=== PATIENT | male | born 1940 | race Caucasian/White ===

== ENCOUNTER 2019-11-03 09:08 | Outpatient (CLI) | payer MEDICARE, SELFPAY ==
[2019-11-03 09:10] VITALS: BP 132/78; PULSE 66; RESP 16; TEMP 36.4; O2SAT 96
[2019-11-03] MEDS: acetaminophen 325 mg Tablet 975 MG PO (10:45)
[2019-11-03] MEDS: diphenhydrAMINE 50 mg/mL SDV 1mL 25 MG IVP (10:45)
== END 2019-11-03 09:09 | disposition home or self-care (01) ==
LOC: RHEOACUTE 09:12
PROVIDERS: Family Provider Nurse Practitioner Family; PCP Nurse Practitioner Family; Visit Provider Internal Medicine Rheumatology
DX: M31.30 Wegener's granulomatosis without renal involvement (principal); Z79.899 Other long term (current) drug therapy; M81.0 Age-related osteoporosis without current pathological fracture; Z11.59 Encounter for screening for other viral diseases; Z11.1 Encounter for screening for respiratory tuberculosis; Z72.89 Other problems related to lifestyle
CPT/HCPCS: 36415; 80076; 82565; 85025; 86480; 86704; 86803; 87340; 96365; 96366; 96374; 96375; J1200; J2930; J7050; J9312

== ENCOUNTER → 2019-11-03 10:09 | Outpatient (BNVA) | payer MEDICARE, SELFPAY | PROVIDERS: Family Provider Nurse Practitioner Family; PCP Nurse Practitioner Family; Visit Provider Internal Medicine Rheumatology | DX: M31.30 Wegener's granulomatosis without renal involvement (principal); Z79.899 Other long term (current) drug therapy | CPT/HCPCS: 85025 ==

== ENCOUNTER → 2019-12-29 10:10 | Outpatient (BNVA) | payer MEDICARE, SELFPAY | PROVIDERS: Family Provider Nurse Practitioner Family; PCP Nurse Practitioner Family; Visit Provider Internal Medicine Rheumatology | DX: Z79.899 Other long term (current) drug therapy (principal); Z51.81 Encounter for therapeutic drug level monitoring; M31.30 Wegener's granulomatosis without renal involvement; I77.6 Arteritis, unspecified | CPT/HCPCS: 36415; 80076; 82565; 85025; 85651; 86140 ==

== ENCOUNTER → 2020-01-19 16:05 | Outpatient (BNVA) | payer MEDICARE, SELFPAY | PROVIDERS: Family Provider Nurse Practitioner Family; PCP Nurse Practitioner Family; Visit Provider Internal Medicine Rheumatology | DX: M31.30 Wegener's granulomatosis without renal involvement (principal); I77.6 Arteritis, unspecified; J44.9 Chronic obstructive pulmonary disease, unspecified; M48.061 Spinal stenosis, lumbar region without neurogenic claudication; Z79.899 Other long term (current) drug therapy; M81.0 Age-related osteoporosis without current pathological fracture; I48.91 Unspecified atrial fibrillation; Z79.01 Long term (current) use of anticoagulants; Z79.52 Long term (current) use of systemic steroids; Z86.73 Personal history of transient ischemic attack (TIA), and cerebral infarction without residual deficits | CPT/HCPCS: 99215; G0463 ==

== ENCOUNTER 2020-04-23 07:48 | Outpatient (CLI) | payer MEDICARE, SELFPAY ==
--- NOTE | 2020-04-23 07:58 | CT_ITS ---
WS: [id number] CT CHEST TECHNIQUE: Noncontrast CT of the chest with coronal and sagittal reformatted images. CLINICAL INFORMATION: LUNG NODULE COMPARISON: CT chest 4 10,019 DLP: 553.[address] scans at [facility] use at least one of these dose optimization techniques: automat ed exposure control; mA and/or kV adjustment per patient size (includes targeted exams where dose is matched to clinical indication); or iterative reconstruction. FINDINGS: Moderate chronic emphysematous changes. No acute pulmonary infiltrates. No focal consolidation or ple ural fluid. Fibrosis right upper lobe medially. Aortic aortic calcification. Coronary calcification. No mediastinal or hilar lymphadenopathy. Calcified right hilar and subcarinal lymph nodes. Prior sple nectomy. Left renal cyst. Adrenal glands are normal. Fibrotic opacity right middle lobe is unchanged. Small nodule right upper lobe medially measuring 6 m m is unchanged. 2 tiny noncalcified nodules the left lower lobe laterally measuring up to 3 mm. Calci fied granuloma right lower lobe. Small right hepatic cyst unchanged. CT/CT chest wo con [id number] IMPRESSION: 1. Stable noncalcified pulmonary nodules described above. Recommend 12 month f ollow-up. 2. Moderate chronic emphysematous changes. No acute pulmonary infiltrates. 3. Prior splenectomy. 4. Vascular calcification including coronary.
== END 2020-04-23 07:49 | disposition home or self-care (01) ==
LOC: RADWPI 07:54
PROVIDERS: Family Provider Nurse Practitioner Family; PCP Nurse Practitioner Family
DX: R91.1 Solitary pulmonary nodule (principal); I25.10 Atherosclerotic heart disease of native coronary artery without angina pectoris
CPT/HCPCS: 71250

== ENCOUNTER 2020-05-16 09:25 | Outpatient (CLI) | payer MEDICARE, SELFPAY ==
[2020-05-16 09:15] VITALS: BMI 19.3
[2020-05-16 09:30] VITALS: BP 125/74; PULSE 55; RESP 16; TEMP 37.1; O2SAT 96
[2020-05-16] MEDS: acetaminophen 325 mg Tablet 975 MG PO (09:50)
[2020-05-16] MEDS: diphenhydrAMINE 50 mg/mL SDV 1mL 25 MG IVP (10:23)
--- NOTE | 2020-05-16 10:27 | PC.NURSE ---
Rituxan infusion started per orders. Will increase rate every 30min per orders.
--- NOTE | 2020-05-16 11:40 | PC.NURSE ---
0915 Discussed Rituxan and impact on immune system with pt and over phone prior to infusion and again today with pt prior to infusion. Discussed good handwashing, wearing mask, social distancing, avoiding crowds, avoiding others with known or possible illness. Verbalized understanding.
[2020-05-16 15:15] VITALS: BP 118/67; PULSE 62; RESP 16; O2SAT 92
--- NOTE | 2020-05-16 15:17 | PC.NURSE ---
Reviewed home medications with pt. Copy of home med list given to pt at DC. Assisted to vehicle at DC to meet .
== END 2020-05-16 09:26 | disposition home or self-care (01) ==
LOC: RHEOACUTE 09:26
PROVIDERS: Family Provider Nurse Practitioner Family; PCP Nurse Practitioner Family; Visit Provider Internal Medicine Rheumatology
DX: I77.6 Arteritis, unspecified (principal); M31.30 Wegener's granulomatosis without renal involvement
CPT/HCPCS: 80076; 82565; 85025; 85651; 86140; 96365; 96366; 96375; J1200; J2930; J7050; J9312

== ENCOUNTER 2020-05-29 14:28 | Outpatient (CLI) | payer MEDICARE, SELFPAY ==
--- NOTE | 2020-05-29 14:34 | XR_ITS ---
WS: [id number] LEFT HIP HISTORY: LEFT HIP PAIN COMPARISON: 06/11/2017 LEFT hip: No acute fracture or dislocation. Mild narrowing of the LEFT hip joint with minimal osteoph ytes. Mild osteopenia. Mild narrowing of the LEFT SI joint. Moderate calcification in the femoral artery. XR/XR hip LT 2-3V wo/w pel* [id number] IMPRESSION: 1. Mild LEFT hip joint arthritis. 2. Mild osteoarthritis LEFT SI joint.
== END 2020-05-29 14:29 | disposition home or self-care (01) ==
LOC: RADWPI 14:33
PROVIDERS: Family Provider Nurse Practitioner Family; PCP Nurse Practitioner Family
DX: M16.12 Unilateral primary osteoarthritis, left hip (principal)
CPT/HCPCS: 73502

== ENCOUNTER → 2020-07-04 08:59 | Outpatient (BNVA) | payer MEDICARE, SELFPAY | PROVIDERS: Family Provider Nurse Practitioner Family; PCP Nurse Practitioner Family; Visit Provider Internal Medicine Rheumatology | DX: M31.30 Wegener's granulomatosis without renal involvement (principal); M47.816 Spondylosis without myelopathy or radiculopathy, lumbar region; I77.6 Arteritis, unspecified; M81.0 Age-related osteoporosis without current pathological fracture; M41.9 Scoliosis, unspecified; Z79.899 Other long term (current) drug therapy; Z79.52 Long term (current) use of systemic steroids | CPT/HCPCS: 99214 ==

== ENCOUNTER 2020-09-26 14:08 | Outpatient (CLI) | payer MEDICARE, SELFPAY ==
--- NOTE | 2020-09-26 14:12 | CT_ITS ---
WS: [id number] LDCT LUNG CANCER SCREENING HISTORY: NICOTINE Dependence, cigarettes TECHNIQUE: Axial imaging performed from the apices to 1 cm below the costophrenic angles. Coronal and sagittal reformats are submitted with axial MIP series. All CT scans at [facility] use at least one of these dose optimization techniques: automated exposure control; mA and/or kV adjustment per patient size (includes targeted exams where dose is matched to clinical indication); or iterativ e reconstruction. DLP: 54.98 mGy.cm DIvol: 1.58 mGy COMPARISON: 04/23/2020 Diagnostic quality: Satisfactory Lung Nodules: Spiculated 6 mm nodule in the RIGHT upper lobe, image 80 of series 3. 3 mm spiculation in the RIGHT middle lobe, image 114 of series 3. There are also a few granulomata. No endobronchial l esions. Lungs: Area of scarring and fibrosis in the medial RIGHT upper lobe. Mild peripheral interstitial thi ckening related to emphysema. Heart: Heart is slightly enlarged. Coronary artery stents are evident. Other findings: Incompletely visualized low-attenuation mass in the LEFT kidney measures 2.1 cm. Sple marleen arterial calcifications. CT/CT lung screening [id number] IMPRESSION: LUNG-RADS: 2-Benign Appearance or Behavior FOLLOW UP: 12 Month: Continue annual screening with LDCT OTHER FINDINGS (S MODIFIER): None. 6 mm nodule in the RIGHT upper lobe has been stable since 2014.
--- NOTE | 2020-09-26 14:58 | XR_ITS ---
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 FINDINGS: The L1-L4 bone mineral density measures 1.265 g/cm2. This corresponds to a T score score of 0.4 and Z score of 1.8. Left femoral neck bone mineral density measures 0.759. This corresponds to a T score -2.4 and Z score of -0.8. XR/XR DEXA axial skeleton* 13491 IMPRESSION: Osteopenia in the left femoral neck at the upper end of the range. Lumbar spine bone mineral density spuriously elevated due to endplate sclerosis. Patient's FRAX calculated 10 year probability for major osteoporotic fracture is 14.7 % and osteoporotic hip fracture is 9.6%.
== END 2020-09-26 14:09 | disposition home or self-care (01) ==
LOC: RAD 14:09
PROVIDERS: Family Provider Nurse Practitioner Family; PCP Nurse Practitioner Family; Visit Provider Family Medicine
DX: Z79.52 Long term (current) use of systemic steroids (principal); M31.30 Wegener's granulomatosis without renal involvement; Z72.0 Tobacco use; M85.88 Other specified disorders of bone density and structure, other site
CPT/HCPCS: 71271; 77080

== ENCOUNTER 2021-01-03 10:04 | Outpatient (CLI) | payer MEDICARE, SELFPAY ==
[2021-01-03 11:33] LABS: Basophils # 0.1 10^3/uL (0.0-0.1); Basophils % 1.4 %; Eosinophils # 0.5 10^3/uL (0.0-0.8); Eosinophils % 6.8 %; Hematocrit 41.4 % (42.0-52.0); Hemoglobin 13.5 g/dL (11.7-16.6); Lymphocytes # 1.7 10^3/uL (0.8-4.8); Lymphocytes % 21.6 %; Mean Corpuscular HGB Conc 32.6 g/dL (30.0-36.0); Mean Corpuscular Hemoglobin 32.3 pg (28.0-34.0); Mean Platelet Volume 11.3 fL (7.4-10.4); Monocytes # 1.3 10^3/uL (0.2-0.9); Monocytes % 16.5 %; Neutrophils # 4.09 10^3/uL (1.8-7.7); Neutrophils % 52.5 %; Nucleated Red Blood Cells % 0 %; Platelet Count 264 10^3/cmm (130-400); Red Blood Count 4.18 10^6/uL (4.1-5.3); Red Cell Distribution Width 14.6 % (12.1-15.1); White Blood Count 7.8 10^3/uL (4.0-10.0)
[2021-01-03 11:59] LABS: Alanine Aminotransferase 8 U/L (0-41); Albumin Level 3.9 g/dL (3.5-5.2); Alkaline Phosphatase 64 IU/L (40-130); Anion Gap 11.7 (5-19); Aspartate Amino Transferase 14 U/L (0-40); Blood Urea Nitrogen 16 mg/dL (8-23); C Reactive Protein 2.8 mg/L (0.0-4.9); Calcium 8.2 mg/dL (8.5-10.5); Carbon Dioxide 26 mmol/L (22-29); Chloride 104 mmol/L (98-107); Globulin 1.8 g/dL (1.3-4.6); Glucose 94 mg/dL (65-115); Osmolality Calculated 285 mOsm/kg (285-295); Potassium 4.7 mmol/L (3.5-5.1); Sodium 137 mmol/L (136-145); Total Bilirubin 0.2 mg/dL (0.15-1.2); Total Protein 5.7 g/dL (6.6-8.7)
[2021-01-03 12:04] LABS: Bilirubin Urine Neg (Negative); Blood Urine Neg (Negative); Glucose Urine UA Norm (Normal); Ketones Urine Negative (Negative); Leukocyte Esterase Urine Negative (Negative); Nitrate Urine Negative (Negative); Protein Urine Neg (Negative); Specific Gravity, Urine 1.015 (1.005-1.030); Urine Appearance Clear (CLEAR); Urine Color Yellow (Yellow); Urobilinogen Urine Norm (Negative); pH Urine 5 (5-7)
[2021-01-03 12:06] LABS: Urine Protein Random 8 mg/dL
[2021-01-03 12:52] LABS: Add Urine Culture? No; Bacteria Urine TRACE /hpf; Mucus Urine 2+ /hpf; Squamous Epithelial Cell Urine 0-4 /hpf (0-5)
== END 2021-01-03 10:05 | disposition home or self-care (01) ==
LOC: ONCMED 10:06
PROVIDERS: Family Provider Nurse Practitioner Family; PCP Family Medicine; Visit Provider Internal Medicine Rheumatology
DX: I77.6 Arteritis, unspecified (principal); M31.30 Wegener's granulomatosis without renal involvement; Z79.899 Other long term (current) drug therapy
CPT/HCPCS: 36415; 80053; 81001; 82248; 84156; 85025; 86140; 87086

== ENCOUNTER 2021-01-07 06:47 | Outpatient (CLI) | payer MEDICARE, SELFPAY ==
[2021-01-07] VITALS (8 sets, daily range): BP systolic 91–127; BP diastolic 53–75; PULSE 52–58; RESP 18–20; TEMP 36.1–36.6; O2SAT 95–98
[2021-01-07] MEDS: acetaminophen 325 mg Tablet 650 MG PO (10:29)
[2021-01-07] MEDS: sodium chloride 0.9% 500 ML 125 ML IV (10:30)
[2021-01-07] MEDS: diphenhydrAMINE 50 mg/mL SDV 1mL 25 MG IVP (10:32)
== END 2021-01-07 06:48 | disposition home or self-care (01) ==
LOC: ONCMED 06:50
PROVIDERS: Family Provider Nurse Practitioner Family; PCP Family Medicine; Visit Provider Internal Medicine Rheumatology
DX: M31.30 Wegener's granulomatosis without renal involvement (principal); I77.6 Arteritis, unspecified
CPT/HCPCS: 96365; 96366; 96375; J1200; J2930; J7040; J7050; J9312

== ENCOUNTER → 2021-02-28 14:16 | Outpatient (BNVA) | payer MEDICARE, SELFPAY | PROVIDERS: Family Provider Nurse Practitioner Family; PCP Family Medicine; Visit Provider Internal Medicine Rheumatology | DX: M31.30 Wegener's granulomatosis without renal involvement (principal); I77.6 Arteritis, unspecified; D89.9 Disorder involving the immune mechanism, unspecified; M41.9 Scoliosis, unspecified; M47.816 Spondylosis without myelopathy or radiculopathy, lumbar region | CPT/HCPCS: 99214 ==

== ENCOUNTER → 2021-03-28 08:18 | Outpatient (BNVA) | payer MEDICARE, SELFPAY | PROVIDERS: Family Provider Internal Medicine Rheumatology; PCP Family Medicine; Referring Provider Internal Medicine Rheumatology; Visit Provider Orthopaedic Surgery | DX: M47.896 Other spondylosis, lumbar region (principal); I71.4 Abdominal aortic aneurysm, without rupture; M54.5 Low back pain | CPT/HCPCS: 72110 ==

== ENCOUNTER 2021-04-01 08:43 | Outpatient (CLI) | payer MEDICARE, SELFPAY ==
--- NOTE | 2021-04-01 08:48 | MR_ITS ---
WS: [id number] MRI LUMBAR SPINE NONCONTRAST TECHNIQUE: Sagittal T1, T2 and STIR imaging. Axial T1 and T2 imaging. CLINICAL INFORMATION: CHRONIC BACK PAIN FINDINGS: Lumbar scoliosis convex left. Grade 1 anterolisthesis L5 on S1 measuring 5 mm. Disc space narrowing w orse at L3-L5. Foraminal narrowing in the lower thoracic spine left T10-11. L1-L2: Mild annular bulging with slight effacement of ventral thecal sac. Mild right and no significa nt left foraminal narrowing. Narrowing of the right subarticular recess. Mild facet arthropathy. L2-L3: Mild disc bulging and osteophytic ridging. Mild central canal stenosis. Impingement traversing L3 nerve roots bilaterally. Mild facet arthropathy. Mild to moderate right and mild left foraminal n arrowing. Moderate facet arthropathy. L3-L4: Mild disc bulging with a shallow central protrusion. Moderate facet arthropathy ligamentum fla vum hypertrophy. Severe central canal stenosis. Impingement traversing L4 nerve roots. Moderate to se reggie right foraminal narrowing. Mild left foraminal narrowing. L4-L5: Disc osteophyte complex with endplate ridging. Impingement traversing left L5 nerve root. Mode rate to advanced facet arthropathy worse in the left. Severe left foraminal narrowing. Right foramen is patent. L5-S1: Disc osteophyte complex eccentric to the left. Impingement traversing S1 nerve roots bilateral ly left greater than right. Severe left foraminal narrowing. Right foramen is patent. Left renal cyst measuring 3.2 x 2.9 CM. Mild central canal stenosis in the cervical spine at C3-C6 wi th moderate spondylitic changes. Visualized pelvic bony structures: Normal. Paravertebral soft tissues: Normal. MR/MR lumbar spine wo con* [id number] IMPRESSION: 1. Lumbar scoliosis convex left. No acute compression fractures. 2. Severe central canal stenosis L3-4 due to disc bulging with facet arthropat hy and ligamentum flavum flavum hypertrophy. 3. Moderate central canal stenosis L4-5 with impingement on the traversing lef t L5 nerve root. 4. Disc osteophyte complex L5-S1 impinges the traversing S1 nerve roots left g reater than right. 5. Mild central canal stenosis L2-3 impinges the traversing L3 nerve roots lamont aterally. 6. Moderate to severe right L3-4 and left L4-5 foraminal narrowing. Severe lef t L5-S1 foraminal narrowing. 7. Moderate facet arthropathy L3-4 and left L4-5
== END 2021-04-01 08:44 | disposition home or self-care (01) ==
LOC: RADSHAW 08:47
PROVIDERS: Family Provider Internal Medicine Rheumatology; PCP Family Medicine; Visit Provider Family Medicine
DX: M54.5 Low back pain (principal); G89.29 Other chronic pain; M41.86 Other forms of scoliosis, lumbar region; M47.816 Spondylosis without myelopathy or radiculopathy, lumbar region; M25.78 Osteophyte, vertebrae; M48.061 Spinal stenosis, lumbar region without neurogenic claudication
CPT/HCPCS: 72148

== ENCOUNTER → 2021-05-28 10:37 | Outpatient (BNVA) | payer MEDICARE, SELFPAY | PROVIDERS: Family Provider Internal Medicine Rheumatology; PCP Family Medicine; Visit Provider Orthopaedic Surgery | DX: Z01.812 Encounter for preprocedural laboratory examination (principal); Z20.822 Contact with and (suspected) exposure to COVID-19 | CPT/HCPCS: 87635 ==

== ENCOUNTER 2021-05-31 08:42 | Day surgery (SDC) | payer MEDICARE, SELFPAY ==
--- NOTE | 2021-05-29 11:16 | ECG_ITS ---
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 Measurements Intervals [place] Rate: 49 P: 77 DC: 170 QRS: 2 QRSD: 104 T: 64 QT: 450 QTc: 407 Interpretive Statements SINUS BRADYCARDIA Compared to ECG 02/18/2018 09:35:50 Atrial fibrillation no longer present Electronically Signed On 05-29-2021 23:50:05 CDT by Kana Holt M.D. [email or web address] medical centerAffinity Tourismbluffton hospitalRECUPYL/store/OM/[id number]
[2021-05-29 11:17] VITALS: BMI 19.3
[2021-05-29 14:52] LABS: Basophils # 0.1 10^3/uL (0.0-0.1); Eosinophils # 0.5 10^3/uL (0.0-0.8); Eosinophils % 3.9 %; Hematocrit 44.4 % (42.0-52.0); Hemoglobin 14.2 g/dL (11.7-16.6); Lymphocytes # 1.1 10^3/uL (0.8-4.8); Lymphocytes % 9.4 %; Mean Corpuscular Hemoglobin 31.5 pg (28.0-34.0); Mean Corpuscular Volume 98.4 fl (80-94); Mean Platelet Volume 12.3 fL (7.4-10.4); Monocytes # 1.4 10^3/uL (0.2-0.9); Monocytes % 11.7 %; Neutrophils % 71.5 %; Nucleated Red Blood Cells % 0 %; Platelet Count 255 10^3/cmm (130-400); Red Blood Count 4.51 10^6/uL (4.1-5.3); Red Cell Distribution Width 14.2 % (12.1-15.1); White Blood Count 11.8 10^3/uL (4.0-10.0)
--- NOTE | 2021-05-29 16:06 | P.ANESASSM_ITS ---
Pre-Anesthetic Assessment Pre-Anesthetic Assessment: Height/Weight: Height 1.7 m Weight 55.792 kg Proposed Procedure: Operation Date: 05/31/21 11:30 Proposed Procedures p Lumbar Spine Decompression L3/4 76300 M48.062(Not Applicable) - Abundio Jhaveri, DO Was Beta Harmony taken within 24 hours: Yes Was Clonidine taken within 24 hours: N/A Social: Social History: Tobacco and No alcohol Exam: Pre-Anes Outpt Exam: alert, oriented x 3 and regular rate & rhythm Airway: Submandibular: WNL Cervical ROM: WNL MP: 2 Pulmonary: Pulmonary: COPD Comments: Byron's CV/HEM: CV/HEM: CAD GI: GI: GERD Metabolic: Comments: Chronic steroids Musc/skel: Musc/skel: Lower Back Pain Anesthetic Plan: ASA status: 3 Anesthesia: General Risk of > 500 ml blood loss (7ml/kg in children): No PFSH Anesthesia PFSH: Medical History COPD (chronic obstructive pulmonary disease) 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 High risk medication use History of esophageal dilatation Immunization counseling Immunosuppression Osteoporosis Scoliosis Byron's granulomatosis with vasculitis Surgical History History of arthroscopy of right shoulder History of inguinal hernia repair, bilateral History of right hip replacement History of splenectomy Hx of heart artery stent 5 stents Family History Other CAD (coronary artery disease) Chronic kidney disease (CKD) Hypertension Denies family history of Rheumatoid arthritis Diabetes Systemic lupus erythematosus (SLE) in adult Stroke Social History Smoking and tobacco status: never smoked Alcohol intake: never History of recent travel: No Data Anesthesia CBC & Chem 7: 05/29/21 11:30 Other Labs: Laboratory Results - last 48 hr 05/29/21 11:30 WBC 11.8 H RBC 4.51 Hgb 14.2 Hct 44.4 MCV 98.4 H MCH 31.5 MCHC 32.0 RDW 14.2 Plt Count 255 MPV 12.3 H Neut % (Auto) 71.5 Lymph % (Auto) 9.4 [place] % (Auto) 11.7 Eos % (Auto) 3.9 Baso % (Auto) 1.0 Neut # (Auto) 8.40 H Lymph # (Auto) 1.1 [place] # (Auto) 1.4 H Eos # (Auto) 0.5 Baso # (Auto) 0.1 Nucleated RBC % (auto) 0 Nucleated RBCs # 0.0 Cardiac Studies: No Data to Display
[2021-05-31] VITALS (9 sets, daily range): BP systolic 84–156; BP diastolic 52–85; PULSE 61–87; RESP 18–20; TEMP 36.2–36.3; O2SAT 92–99
--- NOTE | 2021-05-31 | SCC_ITS ---
Procedure Done: Right L3/4 laminectomy with facetectomy 26.3 seconds of fluoroscopic guidance, for a cumulative dose of 6.36 mGy, was provided to Dr. Jhaveri by the radiology department. C-arm images of the lumbar spine were saved for the patient's permanent record. [facility] CENTERJackson
--- NOTE | 2021-05-31 | XR_ITS ---
WS: [id number] Lumbar spine, C-arm fluoroscopy, 05/31/2021 Clinical Data: Lumbar spine decompression Comparison: None. Findings: Dr. Jhaveri performed a lumbar decompression at L3-L4. XR/XR lumbar spine 1V [id number] Impression: L3-L4 decompression.
--- NOTE | 2021-05-31 09:04 | W.PM.OPSUD ---
Surgery/Procedure H&P Update DATE OF PROCEDURE: May 31, 2021 DATE H&P PERFORMED: 05/31/21 H&P UPDATE INFORMATION: I have reviewed H&P completed within last 30 days, I have examined patient prior to procedure and No changes to prior documentation PLANNED PROCEDURE: Operation Date: 05/31/21 11:25 Proposed Procedures p Lumbar Spine Decompression L3/4 29695 M48.062(Not Applicable) - Abundio Jhaveri DO
--- NOTE | 2021-05-31 09:14 | PM.HP ---
Providers/Chief Complaint Primary Care Provider: Gerardo Hutchison MD Chief Complaint: lumber spine decompression History of Present Illness Arnold Aragon is a 80 year old male back pain that radiates into his right hip and lower extremity with no known injury. He feels his leg pain is worse than the back pain. He complains of night time pain and stiffness in the morning that makes it difficult to move in the morning.He is using a cane at todays visit and leans forward when sitting and walking. Chief Complaint: back pain Onset: 4 years Duration: gradually worsening Characteristics: ache, just hurts Severity: 12/15 Location: low back Radiating symptoms: right hip, anterior and lateral thigh Aggravating factors: nighttime pain, stiffness in the morning Alleviating factors: Tramdol Neuro deficits: [] denies numbness, tingling, weakness, incontinence of bowel/bladder, saddle anesthesia. Prior tx: Injections Associated symptoms: Denies abdominal pain, chills, fever(s), nausea or vomiting Review of Systems Narrative: General ROS: negative for weight changes, fever ENT ROS: negative for nasal congestion, drainage or bleeding, sore throat, dysphagia or ear pain Eyes: PERRL Hematological and Lymphatic ROS: negative for swollen glands or abnormal bleeding Endocrine ROS: negative for polyuria/polydpsia or new changes in weight Respiratory ROS: negative for cough, shortness of breath, or wheezing Cardiovascular ROS: negative for chest pain or dyspnea on exertion Gastrointestinal ROS: negative for reflux, abdominal pain, change in bowel habits, or black or bloody stools Musculoskeletal ROS: negative for back pain, neck pain, or joint pain or swelling except for current problem Neurological ROS: negative for TIA or stoke symptoms Skin: no rashes Medications/Allergies Home Medications Medication Instructions Recorded Confirmed Last Taken Type albuterol sulfate 2.5 mg INHALATION QID 01/19/20 05/29/21 Unknown History aspirin 81 mg tablet,delayed 81 mg PO DAILY 01/19/20 05/29/21 Unknown History release metoprolol tartrate 25 mg tablet 25 mg PO BID 01/19/20 05/29/21 Unknown History mirtazapine 30 mg tablet 30 mg PO .HS tab 01/19/20 05/29/21 Unknown History nitroglycerin 0.4 mg sublingual 0.4 mg SUBLINGUAL Q5M PRN 01/19/20 05/29/21 Unknown History tablet rituximab 10 mg/mL 500 mg IVP .[id number] ml 01/19/20 05/29/21 Unknown History concentrate,intravenous tamsulosin 0.4 mg capsule 0.4 mg PO DAILY 01/19/20 05/29/21 Unknown History alendronate 70 mg tablet 70 mg PO .q7days #15 tab 02/28/21 05/29/21 Unknown Rx omeprazole 40 mg capsule,delayed 40 mg PO DAILY #90 cap 02/28/21 05/29/21 Unknown Rx release prednisone 5 mg tablet 5 mg PO DAILY #90 tab 02/28/21 05/29/21 Unknown Rx tramadol 50 mg tablet 50 mg PO BID PRN #60 tab 02/28/21 05/29/21 Unknown Rx Allergies Allergy/AdvReac Type Severity Reaction Status Date / Time Penicillins Allergy Unknown Verified 05/29/21 11:09 PFSH Acute PFSH: Medical History COPD (chronic obstructive pulmonary disease) 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 High risk medication use History of esophageal dilatation Immunization counseling Immunosuppression Osteoporosis Scoliosis Byron's granulomatosis with vasculitis Surgical History History of arthroscopy of right shoulder History of inguinal hernia repair, bilateral History of right hip replacement History of splenectomy Hx of heart artery stent 5 stents Family History Other CAD (coronary artery disease) Chronic kidney disease (CKD) Hypertension Denies family history of Rheumatoid arthritis Diabetes Systemic lupus erythematosus (SLE) in adult Stroke Social History Smoking and tobacco status: never smoked Alcohol intake: never History of recent travel: No Vitals/I&O/Wt Weight last 48 hrs Weight 123 lb Physical Exam Narrative: EXAM NARRATIVE: CONSTITUTIONAL: The patient is a normal appearing [] in no apparent distress. GENERAL: Patient in no acute distress. CARDIAC: Regular rate and rhythm. CHEST: Normal inspiratory effort, normal respiratory rate. ABDOMEN: Soft and nontender. SKIN: Clear, warm and intact. NEURO?PSYCH: The patient is alert and oriented to person, place and time. Sensorv /SILT Motor StrengthShoulder abduction C5 5/5Wrist extension C6 5/5Elbow extension C7 5/5Hand Sewer Pipe Layer Helper C8 5/5Finger abduction T15/5 Radial/ Ulnar/ Median n intact LowerSensory (SILT)Motor StrengthHin flexion L2/3Ant/inner thigh 5/5Hip adduction L2/3 5/5Knee extension L4 Lat thigh, 5/5Toe dorsiflexion L5 5/5Ankle dorsiflexion L5/ T24Cudlqsz flexion S1 5/5 DTRBleeps 2+Triceps 2+Brachioradialis 2+Patellar 2+Achilles 2+ MUSCULOSKELETAL: [] UPPEREXTREMITIES: The patient had full active ROM in fingers, wrist, elbow, and shoulder. The patient demonstrated ability to fully flex/extend/abduct/adduct fingers, make ok sign, cross 2nd/3rd digits, extend 1st digit fully.. Radial pulse 2+, CR<2 seconds. LOWER EXTREMITIES: Pt has full, active ROM of toes, ankle, knee, and hip. Dorsalis pedis/posterior tibialis pulses 2+, CR<2 seconds. SPINE: Skin warm, dry, intact. Data : 05/29/21 11:30 A&P Assessment and plan (1) Lumbar stenosis with neurogenic claudication: At this point plan is to do a right L3-4 MIS decompression. Plan will be to do this on June stimulator in order to allow for his to have her surgery which we done April 10. Risk meds are explained which include bleeding infection scar pain damage blood vessels nerves risk for the surgery and anesthesia risk. Status: Acute Attestations Medical Necessity Statement*: failed conservative tx Coding Level of Care Code Acute President And Cmo for g Fwd Diagnoses Lumbar stenosis with neurogenic claudication M48.062
[2021-05-31] MEDS: sodium chloride 0.9% 1,000 ML 30 ML IV (09:25)
--- NOTE | 2021-05-31 10:13 | P.ANESUD_ITS ---
Pre-Anesthetic Update Pre-Anesthetic Assessment: Date of Surgery/Procedure: 05/31/21 Preop Amanda gnosis: lumbar stenosis with neurogenic claudication Proposed Procedure: Operation Date: 05/31/21 11:25 Proposed Procedures p Lumbar Spine Decompression L3/4 58557 M48.062(Not Applicable) - Abundio Jhaveri, DO Any changes to Pre-Anesthetic Assessment?: No Last Intake: Intake Last Liquid Date 05/30/21 Last Liquid Time 22:30 Last Solid Date 05/30/21 Last Solid Time 17:00 Labs Last 48hrs: Laboratory Results - last 48 hr 05/29/21 11:30 WBC 11.8 H RBC 4.51 Hgb 14.2 Hct 44.4 MCV 98.4 H MCH 31.5 MCHC 32.0 RDW 14.2 Plt Count 255 MPV 12.3 H Neut % (Auto) 71.5 Lymph % (Auto) 9.4 [place] % (Auto) 11.7 Eos % (Auto) 3.9 Baso % (Auto) 1.0 Neut # (Auto) 8.40 H Lymph # (Auto) 1.1 [place] # (Auto) 1.4 H Eos # (Auto) 0.5 Baso # (Auto) 0.1 Nucleated RBC % (a uto) 0 Nucleated RBCs # 0.0 Vitals: Temperature 97.2 F L 05/31/21 09:15 Temperature Source Temporal Artery S can 05/31/21 09:15 Pulse Rate 61 05/31/21 09:15 Respiratory Rate 18 05/31/21 09:15 Blood Pressure 156/85 05/31/21 09:15 Blood Pressure Patricia n 108 05/31/21 09:15 Pulse Oximetry 96 05/31/21 09:15 Oxygen Delivery Me thod 05/31/21 09:15 Exam: Pre-Anes Outpt Exam: alert, oriented x 3, clear to auscultation bilaterally and regular rate & rhythm Cardiac Studies: No Data to Display
[2021-05-31] MEDS: clindamycin 900 MG/50 ML PREMIX 100 MG IV (10:43)
--- NOTE | 2021-05-31 11:53 | P.OP_ITS ---
Operative Report Date of procedure: May 31, 2021 Pre-op Diagnosis: lumbar stenosis with neurogenic claudication Post-op diagnosis: same Procedure Done: Right L3/4 laminectomy with facetectomy Surgeon: Abundio Jhaveri Commissioned Security Officer: Armando Langford Commissioned Security Officer: PAIGE Olivera assisted with positioning the patient and closure of the wound. He also assisted with suction and retraction under the microscope I need his expertise under the microscope in order to perform the surgery. Anesthesia: General Estimated blood loss (mL): 5 Condition: stable Disposition: PACU Procedure: Patient is brought to the operative suite. After undergoing anesthesia they are placed in the supine position. All areas of impingement are well padded. Patient is then prepped and draped in the normal sterile fashion. A skin incision is made over the L3/4 level. This is confirmed under c-arm guidance. A series of dilators are passed and the tubular retractor is docked on the L3 lamina. A bovie is used to clear the soft tissue off the lamina and the L 3/4 facet joint. A high speed mehreen is then used to perform the laminectomy and take down the medial aspect of the L 3/4 facet joint. A kerrison rongeure was then used to take down the remaining lamina and smooth the edge of the laminectomy up to the point where the ligamentum flavum attaches. Attention was then brought to the medial aspect of the facet joint. The remaining medial aspect of the superior and inferior aspect of the facet joint were taken down with the kerrison from the pedicle of L3 to L 4. The facet joint had significant hypertrophy. Attention was then brought to the Ligamentum Flavum. The ligament was taken down from the lamina of L3 to L4 and out medially to the remaining facet joint. The ligament was thick. The dura was then exposed. The dura was in good repair. The L3 nerve was then traced with a curette out the L3/4 foramen and found to be adequately decompressed. The L4 nerve was traced with a curette around the L4 pedicle. The lateral recess was opened with a kerrison helping to further decompress the L4 nerve. Wound is then irrigated copiously with saline and surgiflo is used to stop any bleeding. The tubular retractor is removed and the wound is closed with vicryl and monocryl suture. Glue is then used to protect the wound. A sterile dressing is then placed. Patient was then placed in the supine position and transferred to the PACU in stable condition.
[2021-05-31] MEDS: sodium chloride 0.9% 500 ML 999 ML IV (12:08)
== END 2021-05-31 13:15 | disposition home or self-care (01) ==
PROVIDERS: PCP Family Medicine; Visit Provider Orthopaedic Surgery
PROC: (CPT 63005; principal; 2021-05-31 11:25)
DX: M48.062 Spinal stenosis, lumbar region with neurogenic claudication (principal); J44.9 Chronic obstructive pulmonary disease, unspecified; I25.10 Atherosclerotic heart disease of native coronary artery without angina pectoris; K21.9 Gastro-esophageal reflux disease without esophagitis; Z79.52 Long term (current) use of systemic steroids; Z79.899 Other long term (current) drug therapy; M81.0 Age-related osteoporosis without current pathological fracture; Z82.49 Family history of ischemic heart disease and other diseases of the circulatory system; Z79.82 Long term (current) use of aspirin
CPT/HCPCS: 63047; 72020; 76000; 85025; 93005; J1100; J2405; J2704; J3010; J3490; J7030; J7040

== ENCOUNTER 2021-07-10 08:56 | Outpatient (CLI) | payer MEDICARE, SELFPAY ==
[2021-07-10 09:03] VITALS: BP 144/84; PULSE 66; RESP 20; TEMP 36.1; O2SAT 98
[2021-07-10 09:38] LABS: Basophils # 0.1 10^3/uL (0.0-0.1); Basophils % 0.8 %; Eosinophils # 0.5 10^3/uL (0.0-0.8); Eosinophils % 4.1 %; Hematocrit 43.2 % (42.0-52.0); Hemoglobin 14.1 g/dL (11.7-16.6); Lymphocytes # 1.8 10^3/uL (0.8-4.8); Lymphocytes % 14.7 %; Mean Corpuscular HGB Conc 32.6 g/dL (30.0-36.0); Mean Corpuscular Volume 98.2 fl (80-94); Mean Platelet Volume 11.3 fL (7.4-10.4); Monocytes # 1.6 10^3/uL (0.2-0.9); Monocytes % 13.7 %; Neutrophils # 7.76 10^3/uL (1.8-7.7); Neutrophils % 65.1 %; Nucleated Red Blood Cells % 0 %; Platelet Count 265 10^3/cmm (130-400); Red Cell Distribution Width 14.7 % (12.1-15.1); White Blood Count 11.9 10^3/uL (4.0-10.0)
[2021-07-10] MEDS: sodium chloride 0.9% 250 ML 50 ML IV (09:42)
[2021-07-10] MEDS: acetaminophen 325 mg Tablet 650 MG PO (09:42)
[2021-07-10] MEDS: diphenhydrAMINE 50 mg/mL SDV 1mL IV (09:43)
[2021-07-10 10:10] LABS: Alanine Aminotransferase 10 U/L (0-41); Alkaline Phosphatase 87 IU/L (40-130); Globulin 2.1 g/dL (1.3-4.6); Total Bilirubin 0.2 mg/dL (0.15-1.2); Total Protein 6.1 g/dL (6.6-8.7)
[2021-07-10 10:13] LABS: Aspartate Amino Transferase 19 U/L (0-40)
[2021-07-10 10:21] VITALS: BP 124/69; PULSE 73; RESP 18; TEMP 36.4; O2SAT 100
[2021-07-10 10:53] VITALS: BP 125/72; PULSE 58; RESP 18; TEMP 36.2; O2SAT 98
[2021-07-10 12:02] VITALS: BP 135/77; PULSE 61; RESP 18; TEMP 36.2; O2SAT 97
== END 2021-07-10 08:57 | disposition home or self-care (01) ==
PROVIDERS: PCP Family Medicine; Referring Provider Internal Medicine Rheumatology; Visit Provider Internal Medicine Medical Oncology
DX: M31.30 Wegener's granulomatosis without renal involvement (principal)
CPT/HCPCS: 80076; 82565; 85025; 85651; 96365; 96366; 96375; J1200; J2920; J7050; J9312

== ENCOUNTER 2021-10-02 11:35 | Outpatient (CLI) | payer MEDICARE, SELFPAY ==
--- NOTE | 2021-10-02 11:44 | CT_ITS ---
WS: [id number] LDCT LUNG CANCER SCREENING TECHNIQUE: Noncontrast CT of the chest with coronal and sagittal reformatted images. CLINICAL INFORMATION: HX OF TOBACCO USE COMPARISON: September 26, 2020 and April 23, 2020 DLP: 86.39 mGy.cm DIvol: 1.[address] scans at [facility] use at least one of these dose optimization techniques: automat ed exposure control; mA and/or kV adjustment per patient size (includes targeted exams where dose is matched to clinical indication); or iterative reconstruction. FINDINGS: Again seen is the spiculated 6 mm nodule right upper lobe. Additional smaller subpleural sp iculated nodule in the right middle lobe measuring 5.5 mm is unchanged. Small spiculated opacity in t he right upper lobe anteriorly is also unchanged measuring 5 mm. Subpleural nodule right upper lobe m easuring 7 mm posteriorly is stable. Mild chronic emphysematous changes. Fibrosis right upper lobe. Aortic calcification. Coronary calcifi cation. No mediastinal or hilar lymphadenopathy. No axillary lymphadenopathy. Adrenal glands are normal. Low-attenuation lesion left kidney partially visualized measuring 3.6 cm. Small right hepatic cyst. Disc space narrowing mid thoracic spine. CT/CT lung screening [id number] IMPRESSION: LUNG-RADS: 2-Benign Appearance or Behavior FOLLOW UP: 12 Month: Continue annual screening with LDCT
== END 2021-10-02 11:36 | disposition home or self-care (01) ==
LOC: RAD 11:41
PROVIDERS: PCP Family Medicine; Visit Provider Family Medicine
DX: Z12.2 Encounter for screening for malignant neoplasm of respiratory organs (principal); Z87.891 Personal history of nicotine dependence
CPT/HCPCS: 71271

== ENCOUNTER 2022-01-08 08:47 | Outpatient (CLI) | payer MEDICARE, SELFPAY ==
[2022-01-08 08:55] VITALS: BP 137/77; PULSE 55; RESP 18; TEMP 36.6; O2SAT 99
[2022-01-08 09:26] LABS: Basophils # 0.1 10^3/uL (0.0-0.1); Basophils % 0.9 %; Eosinophils # 0.3 10^3/uL (0.0-0.8); Hematocrit 41.2 % (42.0-52.0); Hemoglobin 13.3 g/dL (11.7-16.6); Lymphocytes # 1.4 10^3/uL (0.8-4.8); Mean Corpuscular HGB Conc 32.3 g/dL (30.0-36.0); Mean Corpuscular Hemoglobin 31.4 pg (28.0-34.0); Mean Corpuscular Volume 97.4 fl (80-94); Mean Platelet Volume 11.1 fL (7.4-10.4); Monocytes # 1.5 10^3/uL (0.2-0.9); Monocytes % 13.6 %; Neutrophils # 7.27 10^3/uL (1.8-7.7); Neutrophils % 66.6 %; Nucleated Red Blood Cells % 0 %; Platelet Count 282 10^3/cmm (130-400); Red Blood Count 4.23 10^6/uL (4.1-5.3); White Blood Count 10.9 10^3/uL (4.0-10.0)
[2022-01-08] MEDS: acetaminophen 325 mg Tablet 650 MG PO (09:31)
[2022-01-08] MEDS: sodium chloride 0.9% 250 ML 50 ML IV (09:32)
[2022-01-08 09:33] LABS: Alanine Aminotransferase 11 U/L (0-41); Albumin Level 3.8 g/dL (3.5-5.2); Alkaline Phosphatase 79 IU/L (40-130); Aspartate Amino Transferase 17 U/L (0-40); Globulin 2.2 g/dL (1.3-4.6); Total Bilirubin 0.2 mg/dL (0.15-1.2)
[2022-01-08] MEDS: diphenhydrAMINE 50 mg/mL SDV 1mL IVP (09:35)
[2022-01-08 10:14] VITALS: BP 136/72; PULSE 53; RESP 18; TEMP 36.6; O2SAT 98
[2022-01-08 10:14] LABS: Erythrocyte Sedimentation Rate 2 mm/hr (0-10)
[2022-01-08 10:44] VITALS: BP 117/65; PULSE 49; RESP 16; TEMP 36.5; O2SAT 98
[2022-01-08 11:36] VITALS: BP 140/73; PULSE 57; RESP 18; TEMP 36.5; O2SAT 97
== END 2022-01-08 08:48 | disposition home or self-care (01) ==
PROVIDERS: PCP Family Medicine; Referring Provider Internal Medicine Rheumatology; Visit Provider Internal Medicine Rheumatology
DX: M31.30 Wegener's granulomatosis without renal involvement (principal); Z79.899 Other long term (current) drug therapy
CPT/HCPCS: 80076; 82565; 85025; 85651; 96365; 96366; 96375; J1200; J2920; J7050; J9312

== ENCOUNTER → 2022-05-05 09:42 | Outpatient (BNVA) | payer MEDICARE, SELFPAY | PROVIDERS: PCP Family Medicine; Visit Provider Internal Medicine Rheumatology | DX: M31.30 Wegener's granulomatosis without renal involvement (principal); Z79.899 Other long term (current) drug therapy; J44.9 Chronic obstructive pulmonary disease, unspecified; Z71.89 Other specified counseling; M81.0 Age-related osteoporosis without current pathological fracture; Z87.310 Personal history of (healed) osteoporosis fracture; I25.10 Atherosclerotic heart disease of native coronary artery without angina pectoris; Z86.73 Personal history of transient ischemic attack (TIA), and cerebral infarction without residual deficits; G47.33 Obstructive sleep apnea (adult) (pediatric); K21.9 Gastro-esophageal reflux disease without esophagitis; R41.3 Other amnesia; I48.20 Chronic atrial fibrillation, unspecified; Z79.01 Long term (current) use of anticoagulants; Z71.6 Tobacco abuse counseling; M47.896 Other spondylosis, lumbar region; M41.9 Scoliosis, unspecified | CPT/HCPCS: 36415; 71046; 80076; 82565; 85025; 86140; 99214 ==

== ENCOUNTER 2022-06-19 17:20 | Inpatient (IN) | payer MEDICARE, SELFPAY ==
[2022-06-19] VITALS (8 sets, daily range): BP systolic 94–135; BP diastolic 60–76; PULSE 48–75; RESP 16–22; TEMP 36.4; O2SAT 87–97; BMI 25.0
--- NOTE | 2022-06-19 17:29 | ECG_ITS ---
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 Measurements Intervals [place] Rate: 59 P: 75 DC: 177 QRS: 63 QRSD: 98 T: 75 QT: 435 QTc: 432 Interpretive Statements SINUS BRADYCARDIA Compared to ECG 05/29/2021 11:44:17 No significant changes Electronically Signed On 06-19-2022 20:48:55 CDT by Sandra Reis M.D. [email or web address] Solutionsparkwood behavioral health systemGreystripefort [id number]
--- NOTE | 2022-06-19 17:30 | XRR_ITS ---
PROCEDURE INFORMATION: Exam: XR Chest Exam date and time: 06/19/2022 5:51 PM Age: 81 years old Clinical indication: Chest wall pain; Additional info: Chest pain TECHNIQUE: Imaging protocol: Radiologic exam of the chest. Views: 1 view. COMPARISON: CR XR chest 2V* [id number] 05/05/2022 11:17 AM FINDINGS: Lungs: Hyperinflated emphysematous lungs. No consolidation. No pulmonary edema. Pleural spaces: Unremarkable. No pleural effusion. No pneumothorax. Heart/Mediastinum: Unremarkable. No cardiomegaly. Bones/joints: Old healed fracture right lateral rib 7. XR/XR chest 1V portable [id number] IMPRESSION: No acute radiographic findings.
[2022-06-19 17:41] LABS: Basophils # 0.1 10^3/uL (0.0-0.1); Basophils % 0.8 %; Eosinophils # 0.1 10^3/uL (0.0-0.8); Eosinophils % 1.1 %; Hematocrit 39.6 % (42.0-52.0); Hemoglobin 13.3 g/dL (11.7-16.6); Lymphocytes # 1.7 10^3/uL (0.8-4.8); Lymphocytes % 21.9 %; Mean Corpuscular HGB Conc 33.6 g/dL (30.0-36.0); Mean Corpuscular Hemoglobin 32.3 pg (28.0-34.0); Mean Corpuscular Volume 96.1 fl (80-94); Mean Platelet Volume 11.7 fL (7.4-10.4); Monocytes # 1.3 10^3/uL (0.2-0.9); Neutrophils % 59.3 %; Nucleated Red Blood Cells % 0 %; Platelet Count 266 10^3/cmm (130-400); Red Blood Count 4.12 10^6/uL (4.1-5.3); Red Cell Distribution Width 13.5 % (12.1-15.1); White Blood Count 7.9 10^3/uL (4.0-10.0)
--- NOTE | 2022-06-19 17:41 | PC.NURSE ---
PT PLACED ON CONTINUOUS NIBP, SPO2, AND CM
--- NOTE | 2022-06-19 17:43 | ED_ITS ---
HPI - Chest Pain General: Chief Complaint: Chest Pain Stated Complaint: CHEST PRESSURE Time Seen by Provider: 06/19/22 17:30 Source: patient Mode of arrival: EMS History of Present Illness: 81-year-old male presents emergency room with complaint of chest pain. Chest pain began while he was sitting on the couch he took aspirin and total of 3 nitro tabs it did improve his symptoms. He has some back pain as well but states he has chronic back pain. EMS gave more nitro and another 3 baby aspirin. He stilling some chest discomfort when he arrives here but is significantly improved. Over the last 3 weeks has had multiple episodes of chest pain have been increasing in intensity and frequency but before brought on by exertion his first time he has been brought on by rest the last time he took a nitro was about a week ago. She has a known history of coronary disease with several previous angioplasties with stenting's. MD complaint: chest pain Pertinent past history: coronary artery disease Onset (ago): hour(s) Timing of current episode: episodic Prior episodes: Yes Onset: during rest Pain location: substernal Pain radiation: back Severity: moderate Quality: tightness, aching and heaviness Relieving factors: nothing Exacerbating factors: nothing Associated symptoms: Reports dyspnea and nausea; Deny abdominal pain, diaphoresis, fever(s), leg edema, palpitations, sense of impending doom, syncope or vomiting Treatment prior to arrival: aspirin and nitroglycerin Review of Systems Const: Denies: fever(s), chills, fatigue, malaise or diaphoresis ENMT: Denies: throat pain, ear or mastoid pain, nasal discharge or nasal blaise estion Card: Reports: chest pain; Denies: palpitations, irregular heart rhythm, edema or syncope Resp: Reports: dyspnea and non-productive cough; Denies: productive cough GI: Reports: nausea; Denies: abdominal pain or vomiting : Denies: flank pain, difficulty urinating, dysuria, urinary frequency or urinary urgency Skin/Breast: Denies: rash or pruritus PFSH ED PFSH: Medical History COPD (chronic obstructive pulmonary disease) 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 High risk medication use History of coronary artery disease History of esophageal dilatation Hydrocele Immunization counseling Immunosuppression NSTEMI (non-ST elevated myocardial infarction) Osteoporosis Scoliosis Unstable angina Byron's granulomatosis with vasculitis Surgical History History of arthroscopy of right shoulder History of inguinal hernia repair, bilateral History of right hip replacement History of splenectomy Hx of heart artery stent 5 stents Status post lumbar laminectomy Family History Other CAD (coronary artery disease) Chronic kidney disease (CKD) Hypertension Denies family history of Rheumatoid arthritis Diabetes Systemic lupus erythematosus (SLE) in adult Stroke Social History Smoking and tobacco status: never smoked Alcohol intake: never History of recent travel: No Physical Exam Const: GENERAL APPEARANCE: cooperative and comfortable ORIENTATION/CONSCIOUSNESS: Yes awake, Yes oriented to person, Yes oriented to place and Yes oriented to time HENMT: COMMON NORMALS: normocephalic and atraumatic HEAD & SCALP: normocephalic and atraumatic Resp: COMMON NORMALS: normal respiratory effort, No retractions, No use of accessory muscles and clear to auscultation bilaterally AUSCULTATION: clear to auscultation bilaterally Cardio: COMMON NORMALS: regular rate, regular rhythm and No murmurs present (Cardio) RATE: regular rate RHYTHM: regular rhythm GI: COMMON NORMALS: Soft to palpation and No hepatosplenomegaly present AUSCULTATION: Yes normoactive bowel sounds PALPATION: Yes Soft to palpation, No Tenderness to palpation present (GI), No Guarding due to palpation present (GI) and Yes No hepatosplenomegaly present Extremity: COMMON NORMALS: normal to inspection, capillary refill normal, no clubbing, cyanosis or edema, no calf tenderness and no pedal edema Neuro: SENSORIUM/ORIENTATION: Yes oriented to person, Yes oriented to place and Yes oriented to time Skin: COMMON NORMALS: no rashes or lesions noted GENERAL SKIN EXAM: no rashes or lesions noted Course Vital Signs: Vital signs: Vital Signs Temperature 97.9 F 06/22/22 12:02 Pulse Rate 74 06/22/22 12:02 Respiratory Rate 15 06/22/22 12:02 Blood Pressure 130/66 06/22/22 12:02 Pulse Oximetry 93 06/22/22 12:02 Oxygen Delivery Me thod 06/22/22 08:37 Oxygen Flow Rate 2 06/22/22 07:56 MDM - Chest Pain Medical Decision Making Increasing episodes of angina in patient with known history of coronary disease now having unstable angina with onset of chest pain while at rest relieved by nitro we will admit with hospitalist consult cardiology. Medical Records I reviewed the patient's medical records. Lab Data I reviewed the patient's lab results. : 06/22/22 04:20 06/22/22 04:20 Radiology Impressions Chest X-Ray 06/19/22 17:30 IMPRESSION: No acute radiographic findings. Hip X-Ray 06/19/22 19:07 IMPRESSION: Right hip prosthesis appears intact. No acute radiographic findings. Abdomen/Pelvis CT 06/20/22 12:21 IMPRESSION: 1. 3.1 cm infrarenal abdominal aortic aneurysm. 2. Gastric wall thickening. 3. Prominent stool and diverticula, without pericolonic inflammation. 4. Additional findings as described above. COMMENTS: Consistent with the [employer]'s Incidental Findings Committee white paper (J Am Natalio Radiol 2018): Any incidental renal lesion less than 1 cm or classified as too small to characterize, or any incidental cystic renal lesion characterized as simple-appearing, is likely benign. No follow-up imaging is recommended for these lesions per consensus recommendations based on imaging criteria. Scrotum Ultrasound 06/20/22 17:12 IMPRESSION: 1. Bilateral hydroceles 2. Left epididymal cysts 3. 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 Asymmetry of the testes with the right being smaller than the left, a finding of uncertain etiology and significance. Laboratory Results WBC 7.9 10^3/uL (4.0-10.0) 06/19/22 17:33 RBC 4.12 10^6/uL (4.1-5.3) 06/19/22 17:33 Hgb 13.3 g/dL (11.7-16.6) 06/19/22 17:33 Hct 39.6 % (42.0-52.0) L 06/19/22 17:33 MCV 96.1 fl (80-94) H 06/19/22 17:33 MCH 32.3 pg (28.0-34.0) 06/19/22 17:33 MCHC 33.6 g/dL (30.0-36.0) 06/19/22 17: RDW 13.5 % (12.1-15.1) 06/19/22 17:33 Plt Count 266 10^3/cmm (130-400) 06/19/22 17:33 MPV 11.7 fL (7.4-10.4) H 06/19/22 17:33 Neut % (Auto) 59.3 % 06/19/22 17: Lymph % (Auto) 21.9 % 06/19/22 17:33 [place] % (Auto) 16.0 % 06/19/22 17: Eos % (Auto) 1.1 % 06/19/22 17: Baso % (Auto) 0.8 % 06/19/22 17: Neut # (Auto) 4.70 10^3/uL (1.8-7.7) 06/19/22 17: Lymph # (Auto) 1.7 10^3/uL (0.8-4.8) 06/19/22 17: [place] # (Auto) 1.3 10^3/uL (0.2-0.9) H 06/19/22 17:33 Eos # (Auto) 0.1 10^3/uL (0.0-0.8) 06/19/22 17: Baso # (Auto) 0.1 10^3/uL (0.0-0.1) 06/19/22 17: Nucleated RBC % (auto) 0 % 06/19/22 17: Nucleated RBCs # 0.0 /100WBC 06/19/22 17:33 Sodium 138 mmol/L (136-145) 06/19/22 17: Potassium 4.1 mmol/L (3.5-5.1) 06/19/22 17:33 Chloride 102 mmol/L (98-107) 06/19/22 17:33 Carbon Dioxide 25 mmol/L (22-29) 06/19/22 17:33 Anion Gap 15.1 (5-19) 06/19/22 17:33 BUN 12 mg/dL (8-23) 06/19/22 17:33 Creatinine 1.0 mg/dL (0.7-1.2) 06/19/22 17:33 GFR Calculation Not Reportable 10/13/22 17:33 Glucose 118 mg/dL (65-115) H 06/19/22 17:33 Calculated Osmolality 287 mOsm/kg (285-295) 06/19/22 17:33 Calcium 9.1 mg/dL (8.5-10.5) 06/19/22 17:33 Total Bilirubin 0.3 mg/dL (0.15-1.2) 06/19/22 17:33 AST 18 U/L (0-40) 06/19/22 17:33 ALT 9 U/L (0-41) 06/19/22 17:33 Alkaline Phosphatase 71 U/L (40-130) 06/19/22 17:33 Troponin T Baseline 69 ng/L (0-15) H 06/19/22 17:33 Total Protein 6.1 g/dL (6.6-8.7) L 06/19/22 17:33 Albumin 4.1 g/dL (3.5-5.2) 06/19/22 17:33 Globulin 2.0 g/dL (1.3-4.6) 06/19/22 17:33 Discharge Plan Discharge Patient Disposition: Admitted As Inpatient Admit Provider: Talya Andino Clinical Impression: Unstable angina, COPD (chronic obstructive pulmonary disease), History of coronary artery disease Condition: Stable Discharge Diet: Cardiac Discharge Activity: Increase activity as tolerated Coding Level of Care Code ED Per Diem Physical Therapist Assistant for Chg Fwd Exam Detailed
[2022-06-19 18:06] LABS: Troponin(5th) Baseline 69 ng/L (0-15)
[2022-06-19 18:09] LABS: Alanine Aminotransferase 9 U/L (0-41); Albumin Level 4.1 g/dL (3.5-5.2); Alkaline Phosphatase 71 U/L (40-130); Anion Gap 15.1 (5-19); Aspartate Amino Transferase 18 U/L (0-40); Blood Urea Nitrogen 12 mg/dL (8-23); Calcium 9.1 mg/dL (8.5-10.5); Carbon Dioxide 25 mmol/L (22-29); Chloride 102 mmol/L (98-107); Glucose 118 mg/dL (65-115); Osmolality Calculated 287 mOsm/kg (285-295); Potassium 4.1 mmol/L (3.5-5.1); Sodium 138 mmol/L (136-145); Total Bilirubin 0.3 mg/dL (0.15-1.2); Total Protein 6.1 g/dL (6.6-8.7)
--- NOTE | 2022-06-19 18:28 | P.HP_ITS ---
Providers/Chief Complaint Primary Care Provider: Gerardo Hutchison MD Chief Complaint: CHEST PRESSURE History of Present Illness Arnold Aragon is a 81 year old male who has established coronary disease with multiple stents, patient has stent in ramus intermediate, ostial, active smoker, history of Byron's granulomatosis on chronic steroids presented today with chest pain. Patient stated that today he was sitting in a couch when he start experiencing chest tightness, he became very uncomfortable, short experiencing diaphoresis, his son put some ice pack on his back at that time his blood pressure was very high systolic was more than 150s, he took nitroglycerin that eased his pain then he took 2 more nitroglycerin because of recurrent chest tightness feeling. He decided to come to the hospital for further evaluation Patient is stating that he has been having these current symptoms for last to 3 weeks every time he gets chest tightness he gets better with nitroglycerin, he smokes 1 pack/day, He is also experiencing some right hip pain In the ambulance she received therapeutic aspirin and another dose of nitroglyce rin in total he got 4 doses of nitroglycerin In the ER he has been diagnosed with NSTEMI His chest pain is typical when he has been started on ACS protocol Dr. Holt will be notified Currently he is on nitroglycerin paste chest pain-free Hemodynamically stable I will give him stress dose steroids his blood pressure was low, he received 1 L normal saline Review of Systems Const: Denies: fever(s) Eyes: Denies: change in vision ENMT: Denies: throat pain Card: Reports: chest pain Resp: Denies: dyspnea GI: Denies: abdominal pain : Denies: flank pain Musc: Reports: joint pain Skin/Breast: Denies: rash Neuro: Denies: headache(s) Psych: Denies: anxiety Endo: Denies: polyuria Henry/Lymph: Denies: easy bruising All/Imm: Denies: urticaria Medications/Allergies Home Medications Medication Instructions Recorded Confirmed Last Taken Type albuterol sulfate 2.5 mg/3 mL 2.5 mg inhalation QID PRN 01/19/20 06/20/22 05/30/21 History (0.083 %) solution for nebulization Shortness Of Breath metoprolol tartrate 25 mg tablet 25 mg PO BID 01/19/20 06/20/22 05/30/21 History mirtazapine 30 mg tablet 30 mg PO BEDTIME 01/19/20 06/20/22 05/30/21 History nitroglycerin 0.4 mg sublingual 0.4 mg sublingual Q5M PRN Chest 01/19/20 06/20/22 Unknown History tablet Pain tamsulosin 0.4 mg capsule 0.8 mg PO QPM 01/19/20 06/20/22 05/30/21 History acetaminophen 500 mg tablet 1,000 mg PO Q4H PRN Pain 06/20/22 06/20/22 Unknown History alendronate 70 mg tablet 70 mg PO Q7D 06/20/22 06/20/22 06/15/22 History aspirin 325 mg tablet 325 mg PO QAM 06/20/22 06/20/22 Unknown History cholecalciferol (vitamin D3) 125 125 mcg PO DAILY 06/20/22 06/20/22 Unknown History mcg (5,000 unit) tablet (Vitamin D3) cyclobenzaprine 10 mg tablet 10 mg PO BID PRN Muscle Spasm 06/20/22 06/20/22 Unknown History esomeprazole magnesium 40 mg 40 mg PO QAM 06/20/22 06/20/22 Unknown History capsule,delayed release prednisone 5 mg tablet 5 mg PO QAM 06/20/22 06/20/22 Unknown History rituximab 10 mg/mL See Rx Instructions .Route .COMPLEX 06/20/22 06/20/22 Unknown History concentrate,intravenous (Rituxan) zinc acetate 50 mg (zinc) capsule 50 mg PO DAILY 06/20/22 06/20/22 Unknown History Allergies Allergy/AdvReac Type Severity Reaction Status Date / Time Penicillins Allergy Unknown Verified 06/20/22 08:08 tramadol AdvReac Intermediate N/V feels Verified 06/20/22 08:08 bad PFSH Acute PFSH: Medical History COPD (chronic obstructive pulmonary disease) 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 High risk medication use History of esophageal dilatation Immunization counseling Immunosuppression Osteoporosis Scoliosis Byron's granulomatosis with vasculitis Surgical History History of arthroscopy of right shoulder History of inguinal hernia repair, bilateral History of right hip replacement History of splenectomy Hx of heart artery stent 5 stents Family History Other CAD (coronary artery disease) Chronic kidney disease (CKD) Hypertension Denies family history of Rheumatoid arthritis Diabetes Systemic lupus erythematosus (SLE) in adult Stroke Social History Smoking and tobacco status: never smoked Alcohol intake: never History of recent travel: No Vitals/I&O/Wt Last Vital Signs Temp 97.5 F L 06/19/22 17:21 Pulse 65 06/19/22 17:21 Resp 16 06/19/22 17:21 BP 94/62 06/19/22 17:21 Pulse Ox 96 06/19/22 17:21 O2 Del Method 06/19/22 17:21 Weight last 48 hrs Weight 70.307 kg Physical Exam Narrative: Patient is cachectic, malnourished Chest pain-free Currently Nitropaste on his chest S1, S2 Hemodynamically stable for now Family at the bedside Currently on room air S1, S2 Abdomen soft mild distention left lower quadrant However it is soft nontender EOMI, PERRLA He is complaining of right hip pain No signs of edema Data : 06/20/22 04:29 06/20/22 04:29 A&P Assessment and plan (1) Unstable angina: (2) History of coronary artery disease: (3) Status post lumbar laminectomy: Plan Unstable angina NSTEMI Start ACS protocol I will give him therapeutic Lovenox Start aspirin and Plavix Request echo In case of any recurrent chest pain overnight Will update cardiology We will keep him n.p.o. after midnight Likely will need angiogram Immunocompromise take steroids, currently blood pressure is on the softer side we will give him bolus and start stress dose steroids History of Byron's granulomatosis Hip pain rule out avascular necrosis we will get hip x-ray Active smoker Opioids for pain management such as morphine Full code N.p.o. after midnight Therapeutic Lovenox Attestations Medical Necessity Statement*: More than 2 midnights anticipated Time Spent in Patient Care: 40 Coding Level of Care Code Acute Yeast Fermentation Attendant for Chg Fwd Diagnoses Unstable angina I20.0 History of coronary artery disease Z86.79 Status post lumbar laminectomy Z98.890
[2022-06-19] MEDS: sodium chloride 0.9% 500 ML 999 ML IV (18:38)
[2022-06-19] MEDS: nitroglycerin 1 gm/inch oint Pkt 0.5 INCH TOPICAL (18:39)
--- NOTE | 2022-06-19 19:07 | XRR_ITS ---
PROCEDURE INFORMATION: Exam: XR Right Hip Exam date and time: 06/19/2022 7:21 PM Age: 81 years old Clinical indication: Hip pain; Right hip TECHNIQUE: Imaging protocol: Radiologic exam of the Right hip. Views: 1 view hip with pelvis when performed. COMPARISON: OT XR lumbar spine 1V [id number] 05/31/2021 10:59 AM FINDINGS: Bones/joints: Generalized osteopenia. Right hip prosthesis appears intact. No evidence of acute fracture. Soft tissues: Unremarkable. Vasculature: Vascular calcifications noted. XR/XR hip RT 1V wo/w pel [id number] IMPRESSION: Right hip prosthesis appears intact. No acute radiographic findings.
--- NOTE | 2022-06-19 20:04 | PC.NURSE ---
attempted report x 1 nurse unavailable.
[2022-06-19 21:10] LABS: Troponin 5 2HR 64.88 ng/L (0-15)
[2022-06-19 21:11] LABS: Troponin 5 2HR Delta -4.12 ABS# (0-10)
[2022-06-19 21:16] LABS: Thyroid Stimulating Hormone 1.26 uIU/mL (0.27-4.20)
[2022-06-19] MEDS: sodium chloride 0.9% 1,000 ML 100 ML IV (22:01)
[2022-06-19] MEDS: hydrocortisone 100 mg/2 mL SDV IVP (22:06)
[2022-06-19] MEDS: enoxaparin 80 mg/0.8 mL Syringe SUBCUT (22:10)
[2022-06-19] MEDS: clopidogrel 300 mg Tablet PO (22:50)
[2022-06-19 22:59] LABS: Troponin 5 6HR 73.36 ng/L (0-15)
[2022-06-19 23:22] LABS: Troponin 5 6HR Delta 4.36 ng/L (0-12)
--- NOTE | 2022-06-19 23:31 | ECG_ITS ---
[facility] Test Date: 2022-06-19 Pat Name: Arnold Aragon Department: Room: Gender: Male Hand Model: : 1940 Requested By: Michael Wesley Order Number: [id number] Ravinder MD: Sandra Reis M.D. Measurements Intervals [place] Rate: 59 P: 71 GA: 169 QRS: 66 QRSD: 106 T: 55 QT: 447 QTc: 445 Interpretive Statements SINUS BRADYCARDIA WITH OCCASIONAL VENTRICULAR PREMATURE COMPLEXES Compared to ECG 06/19/2022 17:29:51 Ventricular premature complex(es) now present Electronically Signed On 06-19-2022 21:05:50 CDT by Sandra Reis M.D. [id number]
[2022-06-20] VITALS (13 sets, daily range): BP systolic 130–150; BP diastolic 64–89; PULSE 61–79; RESP 14–26; TEMP -13.3–36.6; O2SAT 93–100
[2022-06-20 04:54] LABS: Basophils % 0.5 %; Hematocrit 35.9 % (42.0-52.0); Hemoglobin 11.9 g/dL (11.7-16.6); Lymphocytes # 0.7 10^3/uL (0.8-4.8); Lymphocytes % 11.8 %; Mean Corpuscular HGB Conc 33.1 g/dL (30.0-36.0); Mean Corpuscular Hemoglobin 32.2 pg (28.0-34.0); Mean Platelet Volume 11.5 fL (7.4-10.4); Monocytes # 0.3 10^3/uL (0.2-0.9); Monocytes % 5.8 %; Neutrophils # 4.71 10^3/uL (1.8-7.7); Neutrophils % 80.2 %; Nucleated Red Blood Cells % 0 %; Platelet Count 248 10^3/cmm (130-400); Red Cell Distribution Width 13.5 % (12.1-15.1); White Blood Count 5.9 10^3/uL (4.0-10.0)
[2022-06-20 05:14] LABS: Anion Gap 14.3 (5-19); Blood Urea Nitrogen 11 mg/dL (8-23); Calcium 8.6 mg/dL (8.5-10.5); Carbon Dioxide 25 mmol/L (22-29); Chloride 104 mmol/L (98-107); Glucose 113 mg/dL (65-115); Osmolality Calculated 288 mOsm/kg (285-295); Potassium 4.3 mmol/L (3.5-5.1); Sodium 139 mmol/L (136-145)
[2022-06-20 05:17] LABS: Magnesium 1.8 mg/dL (1.7-2.3)
--- NOTE | 2022-06-20 05:47 | PC.NURSE ---
Unable to verify home medications with patient. He states that his manages all of his medications, he is unfamiliar with medications, dose, and frequency. currently not present.
[2022-06-20] MEDS: aspirin 81 mg EC Tablet PO (08:30)
[2022-06-20] MEDS: hydrocortisone 100 mg/2 mL SDV IVP ×2 (08:30→19:44)
[2022-06-20] MEDS: clopidogrel 75 mg Tablet PO (08:30)
[2022-06-20] MEDS: atorvastatin 40 mg Tablet 80 MG PO (08:30)
[2022-06-20] MEDS: sennosides-docusate Tablet 1 TAB PO (08:31)
[2022-06-20] MEDS: pantoprazole DR 40 mg Tablet PO (08:31)
--- NOTE | 2022-06-20 08:35 | PC.PHAR ---
pts [phone] verified pts medications-pts states the pt is out of his mirtazapine 30mg hs ext med history shows last filled 05/02/22 90d/s-notes are made in the pharmacy comments
--- NOTE | 2022-06-20 08:56 | PM.CONSULT ---
Providers/Reason For Consult Consulting Physician/Specialty*: Amrit Higginbotham MD/ Cardiology Reason for Consult*: NSTEMI Requesting Physician: Dr Padilla Attending Physician: Susanne Padilla MD Primary Care Provider: Gerardo Hutchison MD History of Present Illness History of Present Illness Arnold Aragon is a 81 year old male with past medical history of coronary artery disease with multiple stents in the past, Byron's granulomatosis who presented to the hospital with chest pain last night. He was feeling severechest tightness. It was associated with diaphoresis. He took multiple nitros. Decided to come to the hospital. Troponins are elevated with baseline of 69 and 6-hour of 73. EKG shows sinus bradycardia with heart rate of 59 bpm and no ischemic changes. Echocardiogram shows normal LV systolic function. He is chest pain-free at this time. Also complained of right groin discomfort. Had CT scan performed by medicine team not showing any acute etiology. Review of Systems Const: Denies: fever(s) Eyes: Denies: change in vision ENMT: Denies: throat pain Card: Reports: chest pain Resp: Denies: dyspnea GI: Denies: abdominal pain : Denies: flank pain Musc: Reports: joint pain Skin/Breast: Denies: rash Neuro: Denies: headache(s) Psych: Denies: anxiety Endo: Denies: polyuria Henry/Lymph: Denies: easy bruising All/Imm: Denies: urticaria Medications/Allergies Home Medications Medication Instructions Recorded Confirmed Last Taken Type albuterol sulfate 2.5 mg/3 mL 2.5 mg inhalation QID PRN 01/19/20 06/20/22 05/30/21 History (0.083 %) solution for nebulization Shortness Of Breath metoprolol tartrate 25 mg tablet 25 mg PO BID 01/19/20 06/20/22 05/30/21 History mirtazapine 30 mg tablet 30 mg PO BEDTIME 01/19/20 06/20/22 05/30/21 History nitroglycerin 0.4 mg sublingual 0.4 mg sublingual Q5M PRN Chest 01/19/20 06/20/22 Unknown History tablet Pain tamsulosin 0.4 mg capsule 0.8 mg PO QPM 01/19/20 06/20/22 05/30/21 History acetaminophen 500 mg tablet 1,000 mg PO Q4H PRN Pain 06/20/22 06/20/22 Unknown History alendronate 70 mg tablet 70 mg PO Q7D 06/20/22 06/20/22 06/15/22 History aspirin 325 mg tablet 325 mg PO QAM 06/20/22 06/20/22 Unknown History cholecalciferol (vitamin D3) 125 125 mcg PO DAILY 06/20/22 06/20/22 Unknown History mcg (5,000 unit) tablet (Vitamin D3) cyclobenzaprine 10 mg tablet 10 mg PO BID PRN Muscle Spasm 06/20/22 06/20/22 Unknown History esomeprazole magnesium 40 mg 40 mg PO QAM 06/20/22 06/20/22 Unknown History capsule,delayed release prednisone 5 mg tablet 5 mg PO QAM 06/20/22 06/20/22 Unknown History rituximab 10 mg/mL See Rx Instructions .Route .COMPLEX 06/20/22 06/20/22 Unknown History concentrate,intravenous (Rituxan) zinc acetate 50 mg (zinc) capsule 50 mg PO DAILY 06/20/22 06/20/22 Unknown History Allergies Allergy/AdvReac Type Severity Reaction Status Date / Time Penicillins Allergy Unknown Verified 06/20/22 08:08 tramadol AdvReac Intermediate N/V feels Verified 06/20/22 08:08 bad Current Medications Generic Name Dose Route Start Last Admin Trade Name Freq PRN Reason Stop Dose Admin Aspirin 81 mg 06/20/22 09:00 06/20/22 08:30 Aspirin 81 Mg Ec Tablet PO 81 mg DAILY JESUS Administration Atorvastatin Calcium 80 mg 06/20/22 09:00 06/20/22 08:30 Atorvastatin 40 Mg Tablet PO 80 mg DAILY JESUS Administration Clopidogrel Bisulfate 75 mg 06/20/22 09:00 06/20/22 08:30 Clopidogrel 75 Mg Tablet PO 75 mg DAILY JESUS Administration Enoxaparin Sodium 70 mg 06/20/22 10:00 06/20/22 08:39 Enoxaparin 80 Mg/0.8 Ml Syringe SUBCUT Not Given Q12H JESUS Hydrocortisone Sodium Succinate 100 mg 06/19/22 20:22 06/20/22 08:30 Hydrocortisone 100 Mg/2 Ml Sdv IVP 100 mg Q12H JESUS Administration Pantoprazole Sodium 40 mg 06/20/22 09:00 06/20/22 08:[address] 40 Mg Tablet PO 40 mg DAILY JESUS Administration Senna/Docusate Sodium 1 tab 06/20/22 09:00 06/20/22 08:31 Sennosides-Docusate Tablet PO 1 tab DAILY JESUS Administration PFSH Acute PFSH: Medical History COPD (chronic obstructive pulmonary disease) 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 High risk medication use History of esophageal dilatation Immunization counseling Immunosuppression Osteoporosis Scoliosis Byron's granulomatosis with vasculitis Surgical History History of arthroscopy of right shoulder History of inguinal hernia repair, bilateral History of right hip replacement History of splenectomy Hx of heart artery stent 5 stents Family History Other CAD (coronary artery disease) Chronic kidney disease (CKD) Hypertension Denies family history of Rheumatoid arthritis Diabetes Systemic lupus erythematosus (SLE) in adult Stroke Social History Smoking and tobacco status: never smoked Alcohol intake: never History of recent travel: No Vitals/I&O/Wt Last Vital Signs Temp 97.8 F 06/20/22 04:00 Pulse 75 06/20/22 08:00 Resp 18 06/20/22 08:00 BP 140/89 06/20/22 08:00 Pulse Ox 100 06/20/22 08:00 O2 Del Method 06/20/22 08:00 O2 Flow Rate 2 06/20/22 07:39 06/19/22 06/20/22 06/20/22 22:59 06:59 14:59 Intake Total 700 / 700 220 / 920 1000 / 1000 Output Total 800 / 800 Balance 700 / 700 -580 / 120 1000 / 1000 Weight last 48 hrs Weight 155 lb Physical Exam Narrative: GENERAL: Patient is alert, awake and oriented x3. [] NECK: No jugular vein distension. [] HEENT: No cyanosis. No icterus. No pallor. [] HEART: Regular S1 and S2. No murmur, rub or gallop. [] LUNGS: Clear to auscultate bilaterally. [] ABDOMEN: Soft CENTRAL NERVOUS SYSTEM: Grossly nonfocal. [] EXTREMITIES: Lower extremities with no edema bilaterally. Data : 06/20/22 04:29 06/21/22 04:55 A&P Assessment and plan (1) NSTEMI (non-ST elevated myocardial infarction): (2) History of coronary artery disease: (3) COPD (chronic obstructive pulmonary disease): (4) Byron's granulomatosis with vasculitis: Plan Patient has presented with typical chest pain symptoms improved with multiple nitros. Troponins were elevated. This is consistent with non-ST elevation [place]. We will proceed with coronary angiogram with possible percutaneous coronary intervention. Risks and benefits of the procedure have been discussed with the patient. He understands the risks and benefits and wants to proceed with the procedure. N.p.o. past midnight. Initial plan was to perform coronary angiogram today however he was having right groin discomfort and further work-up was performed with medicine team including abdominal/pelvic CT scan and ultrasound of scrotum. Informed of no acute etiology by medicine team. Continue aspirin and Plavix Continue anticoagulation with Lovenox Echocardiogram performed showing normal LV systolic function. Thank you for involving us with care of this patient. We will continue to follow. Please call with questions. Consult Attestations Medical Necessity Statement: Care expected to cross 2 midnights. Coding Level of Care Code Acute Economic Research Assistant for [place] Diagnoses NSTEMI (non-ST elevated myocardial infarction) I21.4 History of coronary artery disease Z86.79 COPD (chronic obstructive pulmonary disease) J44.9 Byron's granulomatosis with vasculitis M31.30; I77.6
--- NOTE | 2022-06-20 10:31 | PC.CHAP ---
Pastoral Care Encounter/Spiritual Assessment Type of Contact [] Declined escalator operator visit [] Patient/Family/Request visit [] Outpatient visit [] Follow-up visit [] Physician referral [] Code/Alert [x] Routine visit [] Staff referral [] Actively dying [] Patient sleeping [] Family support [] [] Out of room [] Palliative care [] [] Receiving care in room [] Pre-surgical visit [] Trauma [] Long length of stay [] ICU visit [] Other: Relational/Emotional Strength [] Patient feels connected with others/family/visitors/staff [] Distress [] Loneliness/isolation [] Abandonment Spirituality of Patient [x] Person of Sari [] Attends Buddhist of their Sari [] Believes in Prayer [] Reads Bible or Rastafari materials [] There are Spiritual issues to be addressed 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 Interventions [x] Prayer [x] Active listening [] Non-anxious presence [] Spiritual/emotional support [] Crisis/trauma care [] Spiritual counseling [] Bereavement support [] Provided bereavement packet [] Provided Bible/devotional materials [] Provided toy/stuffed animal, coloring book to patient or family member [] Provided Communion [] Anointing/[place] [] Salvation [x] Completed spiritual assessment [] Other: Impact on Illness or Injury [] Angry [] Fearful [] Anxious [] Often cries [] Exhaustion [] Unable to work [] Unable to attend moravian [] Unable to walk/stand [] Unable to read [] Unable to drive [] Unable to eat/drink [] Unable to sleep [] Unable to be with family [] Patient intubated [] Other: Summary Time spent with patient 5 min
--- NOTE | 2022-06-20 10:46 | PM.PN ---
Subjective Subjective: Dr. Higginbotham was consulted who is planning for coronary angiogram today Nitropaste has been removed No recurrence of chest tightness Patient is doing fine Blood pressure stable Will change his stress dose steroids to p.o. regimen tomorrow Vitals/I&O/Wt Last Vital Signs Temp 97.8 F 06/20/22 04:00 Pulse 75 06/20/22 08:00 Resp 18 06/20/22 08:00 BP 140/89 06/20/22 08:00 Pulse Ox 100 06/20/22 08:00 O2 Del Method 06/20/22 08:00 O2 Flow Rate 2 06/20/22 07:39 06/19/22 06/20/22 06/20/22 22:59 06:59 14:59 Intake Total 700 / 700 220 / 920 1240 / 1240 Output Total 800 / 800 Balance 700 / 700 -580 / 120 1240 / 1240 Weight last 48 hrs Weight 70.307 kg Physical Exam Narrative: Patient clinically looks dehydrated Awake and alert Was eating breakfast No active chest pain or discomfort Currently on 2 L nasal cannula Hemodynamically stable Awake and alert Left-sided distended abdomen nontender Extremity no edema Hard of hearing Hemoglobin 11 Data : 06/20/22 04:29 06/20/22 04:29 A&P Assessment and plan (1) Unstable angina: (2) NSTEMI (non-ST elevated myocardial infarction): Plan Unstable angina Currently on ACS protocol Plan for angiogram today Chest pain resolved History of coronary disease Active smoker Echo report is pending He is n.p.o. 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
--- NOTE | 2022-06-20 12:21 | CTR_ITS ---
PROCEDURE INFORMATION: Exam: CT Abdomen And Pelvis Without Contrast Exam date and time: 06/20/2022 2:26 PM Age: 81 years old Clinical indication: Abdominal pain; Additional info: RT groin pain TECHNIQUE: Imaging protocol: Computed tomography of the abdomen and pelvis without contrast. Radiation optimization: All CT scans at this facility use at least one of these dose optimization techniques: automated exposure control; mA and/or kV adjustment per patient size (includes targeted exams where dose is matched to clinical indication); or iterative reconstruction. COMPARISON: CT chest abdomen w con* 07/19/2015 9:19 AM RADIATION DOSE METRICS: Total DLP (mGy-cm): 370.56 FINDINGS: Detailed evaluation of the abdominal and pelvic viscera is somewhat limited in the absence of intravenous contrast. Lungs: Interstitial prominence and chronic granulomatous disease. Liver: 9 mm hepatic cyst and calcified granulomata. Gallbladder and bile ducts: Unremarkable gallbladder. Pancreas: Borderline pancreatic ductal dilatation, without focal mass. Spleen: Splenules. Adrenal glands: Unremarkable adrenals. Kidneys and ureters: 3.6 cm left renal cyst, which previously measured 2.9 cm. No hydronephrosis. Stomach and bowel: Gastric wall thickening. Prominent stool and diverticula, without pericolonic inflammation. Appendix: Nonvisualization of the appendix. Intraperitoneal space: No significant free fluid. Vasculature: Prominent vascular calcification. 3.1 cm infrarenal abdominal aortic aneurysm, which previously measured 2.6 cm. Lymph nodes: Subcentimeter lymph nodes. Urinary bladder: Normal morphology of the dilated bladder. Reproductive: Prostate calcification. Bones/joints: Right hip arthroplasty with associated beam hardening artifact. Osteopenia, degenerative change, and levoscoliosis. Soft tissues: Ventral wall hernia. Punctate subcutaneous calcification in the anterior abdominal wall midline. CT/CT abdomen pelvis wo con [id number] IMPRESSION: 1. 3.1 cm infrarenal abdominal aortic aneurysm. 2. Gastric wall thickening. 3. Prominent stool and diverticula, without pericolonic inflammation. 4. Additional findings as described above. COMMENTS: Consistent with the [employer]'s Incidental Findings Committee white paper (J Am Natalio Radiol 2018): Any incidental renal lesion less than 1 cm or classified as too small to characterize, or any incidental cystic renal lesion characterized as simple-appearing, is likely benign. No follow-up imaging is recommended for these lesions per consensus recommendations based on imaging criteria.
[2022-06-20] MEDS: morphine IR 15 mg Tablet PO (12:31)
--- NOTE | 2022-06-20 17:12 | USR_ITS ---
PROCEDURE INFORMATION: Exam: US Scrotum Exam date and time: 06/20/2022 5:35 PM Age: 81 years old Clinical indication: Groin pain; Prior surgery; Surgery date: 6+ months; Surgery type: Bilat hernia repair; Additional info: With doppler , testicular pain right TECHNIQUE: Imaging protocol: Real-time ultrasound of the scrotum and contents with color Doppler and image documentation. COMPARISON: CT abdomen pelvis con [id number] 06/20/2022 2:26 PM FINDINGS: Right testicle: Right testicle measures 3.0 x 1.2 x 1.6 cm. This is smaller than the left testicle. There is blood flow at the low end of normal and less than on the left. There is no focal mass in the right testicle. Left testicle: Left testicle measures 3.5 x 0.4 x 2.2 cm. There is normal Doppler flow in the left testicle. There is a 5 mm sized cyst in the upper end of the left testicle with imperceptible wall and entirely anechoic likely benign simple intratesticular cyst. There also cysts in the head of the left epididymis. There is expansion of the rete testis on the left which is a benign finding. Epididymides: Right epididymis is unremarkable Scrotum: There are bilateral hydroceles larger on the left than on the right. Soft tissues: Examination of the area of pain shows some focal soft tissue with dense shadowing which is not fully characterized on this examination and is nonspecific but could represent scar tissue from the patient's previous hernia repair. US/US scrotum [id number] IMPRESSION: 1. Bilateral hydroceles 2. Left epididymal cysts 3. 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 Asymmetry of the testes with the right being smaller than the left, a finding of uncertain etiology and significance.
--- NOTE | 2022-06-20 20:22 | USCV_ITS ---
Arnold Aragon Age: 81 Gender: M : 1940 Exam Date: 06/20/2022 02:31 Ordering Phys: Susanne Padilla MD Technologist: MARCELLUS [place] [facility] [place]: NSTEMI. History of cardiac stenting beginning 2011 per patient. BP: 125 / 70 HR: 67 Rhythm: Sinus Technical Quality: Adequate MEASUREMENTS (Male / Female) Normal Values 2D ECHO LV Diastolic Diameter PLAX 4.2 cm 4.2 - 5.9 / 3.9 - 5.3 cm LV Systolic Diameter PLAX 3.0 cm IVS Diastolic Thickness 1.4 cm 0.6 - 1.0 / 0.6 - 0.9 cm IVS Systolic Thickness 1.7 cm LVPW Diastolic Thickness 1.1 cm 0.6 - 1.0 / 0.6 - 0.9 cm LVPW Systolic Thickness 1.9 cm LVOT Diameter 2.0 cm LV Ejection Fraction 2D Teich 53.7 % LV Ejection Fraction MOD 2C 71.3 % LV Ejection Fraction 2C AL 72.2 % LA Diameter 3.4 cm LA Width 2.7 cm LA Height 4.3 cm RA Width 3.1 cm RA Height 3.6 cm Aorta at Sinotubular Diameter 3.4 cm IVC Diameter 1.5 cm M-MODE Aortic Annulus Diameter 3.6 cm LA Ao Ratio MM 0.9 MV E Point Septal Separation 0.3 cm DOPPLER AV Peak Velocity 110.0 cm/s LVOT Peak Velocity 71.0 cm/s AV Area Cont Eq vti 2.3 cm squared AV Area Cont Eq pk 2.0 cm squared MV Area PHT 3.9 cm squared Mitral E to A Ratio 0.9 MV E' Velocity 52.5 cm/s Mitral E to MV E' Ratio 8.3 Mitral E to LV E' Lateral Ratio 7.0 Mitral E to LV E' Septal Ratio 10.6 TR Peak Velocity 312.3 cm/s TR Peak Gradient 39.0 mmHg TV Peak E Velocity 54.0 cm/s Right Atrial Pressure 5.0 mmHg Pulmonary Artery Systolic Pressu 44.0 mmHg PV Peak Velocity 84.0 cm/s RV Acceleration Time 0.1 s RV Ejection Time 0.4 s RV AcT/ET 0.3 FINDINGS Left Ventricle Normal left ventricular size and systolic function, EF 67 %. Mild left ventricular hypertrophy. No regional wall motion abnormalities. Right Ventricle The right ventricle is normal in size and function. Right Atrium The right atrium is normal in size. Left Atrium The left atrium is normal in size. Mitral Valve Thickened mitral valve. Moderately severe mitral valve regurgitation Aortic Valve Structurally normal aortic valve without significant sclerosis or stenosis. There is no aortic regurgitation. Tricuspid Valve [id number] tricuspid valve regurgitation. Pulmonic Valve Trace pulmonary valve regurgitation. Pericardium Normal pericardium without effusion. Aorta Normal ascending aorta dimension. IVC Normal inferior vena cava. CONCLUSIONS Normal left ventricular size and systolic function, EF 67 %. Mild left ventricular hypertrophy. No regional wall motion abnormalities. Thickened mitral valve. [id number] tricuspid valve regurgitation. Trace pulmonary valve regurgitation. Moderately severe mitral valve regurgitation. There is no pericardial effusion. There are no intracardiac masses. No similar previous studies are available for comparison Dr Kana Holt MD [facility] (Electronically Signed) Final Date: 20 June 2022 13:53 S
[2022-06-20] MEDS: enoxaparin 80 mg/0.8 mL Syringe 70 MG SUBCUT (21:34)
[2022-06-20] MEDS: morphine 4 mg/mL SDV 1 mL IVP (21:44)
--- NOTE | 2022-06-20 21:49 | PC.NURSE ---
Called and spoke with . said ok to give patient his PM dose of Lovenox with Cath scheduled for tomorrow.
[2022-06-21] VITALS (33 sets, daily range): BP systolic 106–149; BP diastolic 52–87; PULSE 68–99; RESP 12–28; TEMP 36.4–36.8; O2SAT 91–100
[2022-06-21] MEDS: morphine 4 mg/mL SDV 1 mL IVP ×3 (04:39→18:14)
[2022-06-21] MEDS: sodium chloride 0.9% 1,000 ML 50 ML IV (04:42)
[2022-06-21] MEDS: morphine IR 15 mg Tablet PO (05:35)
[2022-06-21 06:04] LABS: Anion Gap 11.8 (5-19); Blood Urea Nitrogen 15 mg/dL (8-23); Calcium 8.8 mg/dL (8.5-10.5); Carbon Dioxide 29 mmol/L (22-29); Chloride 105 mmol/L (98-107); Glucose 108 mg/dL (65-115); Osmolality Calculated 295 mOsm/kg (285-295); Potassium 3.8 mmol/L (3.5-5.1); Sodium 142 mmol/L (136-145)
[2022-06-21] MEDS: pantoprazole DR 40 mg Tablet PO (08:24)
[2022-06-21] MEDS: diphenhydrAMINE 50 mg Capsule PO (08:24)
[2022-06-21] MEDS: sennosides-docusate Tablet 1 TAB PO (08:24)
[2022-06-21] MEDS: hydrocortisone 10 mg Tablet 5 MG PO (08:24)
[2022-06-21] MEDS: aspirin 81 mg EC Tablet PO (08:24)
[2022-06-21] MEDS: clopidogrel 75 mg Tablet PO (08:25)
[2022-06-21] MEDS: atorvastatin 40 mg Tablet 80 MG PO (08:26)
--- NOTE | 2022-06-21 09:42 | XACV_ITS ---
Exam Room: [facility] Ht: 168 cm Wt: 70 kg BSA: 1.82 m2 Gender: Male : 1940 Any Known Allergies: Other Exam Priority: Routine Procedure(s): Procedure Description: Diagnostic procedure Procedure Description: PCI procedure Procedure Description: Drug Eluting Coronary Stent Procedure Description: PTCA Procedure Description: Miscellaneous Procedure Description: ACT Procedure Description: Coronary Angiography Diagnostic Cath Status: Urgent Diagnostic Findings * Left Main has mild to moderate disease. * LAD is a small sized vessel.Proximal Left Anterior Descending to Mid Left Anterior Descending: moderate to severe 60% stenosis, ROBERT: 3 flow. A large sized diagonal artery is patent.. * Mid Circumflex:99% instent restenosis, ROBERT: 3 flow. * Ramus: Severe 99% in-stent restenosis and underexpanded stents.. 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 He was feeling severechest tightness. It was associated with diaphoresis. He took multiple nitros. Decided to come to the hospital. Troponins are elevated with baseline of 69 and 6-hour of 73. EKG shows sinus bradycardia with heart rate of 59 bpm and no ischemic changes. Echocardiogram shows normal LV systolic function. He is chest pain-free at this time. Also complained of right groin discomfort. Had CT scan performed by medicine team not showing any acute etiology. * Mid Right Coronary Artery: obstructive 70% stenosis, ROBERT: 3 flow. * Distal Right Coronary Artery: significant 80% stenosis, ROBERT: 3 flow. * Coronary angiography shows right dominance. PCI Status: Urgent PCI Indication: NSTE - ACS Interventional Findings * Ramus: 99% stenosis treated with a MDT NC EUPHORA RX 2.08P40YS BALLOON, and MDT NC EUPHORA RX 2.56N99ZP BALLOON. 20% residual stenosis, ROBERT: 3 flow. * Procedure detail: We engaged left main artery with XB 4 guide catheter after switching different guides as aorta was dilated and had difficulty in engagement. We then advanced 0.014 run-through guidewire into the distal left circumflex artery. IV heparin was administered already to maintain ACT above 250 s. Mid LCx severe in-stent restenosis was treated by balloon angioplasty with 3.0 x 12 mm NC balloon. This was followed by balloon angioplasty with 2.75 x 12 mm NC balloon. At this time final angiogram for circumflex artery showed no significant stenosis, ROBERT-3 flow. With then advanced the guidewire into the ramus artery which had various tandem in-stent restenosis lesions. 2.75 x 12 mm NC balloon was used in order to dilate the stents. Reasonably good result was obtained in underexpanded prior stents. ROBERT-3 flow was established with minimal residual stenosis. At this time guidewire and guide catheter were removed. Patient left the Fire Boss in a stable condition.. * Mid Circumflex: 99% stenosis treated with a MDT NC EUPHORA RX 3.78S35FE BALLOON, and MDT NC EUPHORA RX 2.09K36AP BALLOON. 0% residual stenosis, ROBERT: 3 flow. Conclusions 1. 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 ramus artery in-stent restenosis 3. and severe 4. mid to distal RCA stenosis.. 5. Status post successful revascularization of mid left circumflex artery and ramus artery in-stent restenosis with balloon angioplasties. 6. Plan for staged revascularization of RCA later. 7. Medical therapy for moderate to severe proximal small sized LAD stenosis. 8. Mid Circumflex was treated with a Balloon, and Balloon. 9. Ramus was treated with a Balloon, and Balloon. Recommendations * Aspirin and Plavix for at least 1 year. * High intensity statin therapy. * Outpatient cardiology follow-up in 7 to 10 days. * Outpatient staged revascularization of RCA in 4 weeks. Interventional RX Recommendation: PCI w/o planned CABG Diagnostic RX Recommendation: PCI w/o planned CABG Anticoagulation: Heparin Pressures Phase:Rest AO : 192 / 94 ( 133 ) @ 11:14:00 AM 116 / 66 ( 88 ) @ 11:55:00 AM Clinical Evaluation EBL: 5mL-10mL Procedural Details Pre-Procedure Time Out. Identified patient by full name and date of as verbalized by the patient/guarantor. Does the consent match the physician's order: Yes. Accurate & Complete Informed Consent: Yes. Inpatient/Outpatient History & Physical on Chart: Yes. If H&P is completed, is and addenduem needed: No; If yes, is the addendum complete: N/A. Visualize and Verify Site with Patient/Guarantor: N/A. Relevant Radiology Images available: N/A. Pre-op teaching completed and patient verbalized understanding. The risks, benefits, and alternatives of sedation and/or procedure were discussed by physician. The patient agrees to continue. Procedure started. [facility] Clinical Fraility Score: 4: Vulnerable. Fire Boss Indications: Worsening Angina. Chest Pain Symptom Assessment: Typical Angina Symptoms. Correct patient, site and procedure confirmed by cath team. Current diagnosis: NSTEMI. PERRLA. Strong, equal hand renewals manager bilaterally. Lungs clear x 5 lobes. IV Site on Arrival: 20 gauge in the left forearm. IV Fluids: 0.9% NaCl at KVO. 200 mL infused prior to laborer plumbing. Pre Procedural Pulses: bilateral dorsalis pedis was 3+. Pre Procedural Pulses: bilateral posterior tibial was 2+. Pre Procedural Pulses: right radial was 1+. Pre Procedural Pulses: left radial was 3+. Oxygen started at 2liters/min via nasal canula. right radial was prepped with chloroprep then draped in the usual sterile fashion. left groin was prepped with chloroprep then draped in the usual sterile fashion. Physician notified. Baseline sample Acquired. HR: 72 BPM. Admit Source: In Patient. Physician scrubbed in. Immediate Pre-Procedure Time Out. Correct Patient: Yes; Correct Procedure: Yes; Correct Site: Yes; Correct Patient Position: Yes; Correct Supplies: Yes; Dried Flammable Prep: Yes; Blood Products Available: Yes;. Ultrasound obtained to assist with arterial access. Lidocaine 1% infiltrated to the right radial. Suspected radial artery occluded as visualized by ultrasound. Unable to obtain radial access. MD attempting to gain access in the Femoral artery. Lidocaine 1% infiltrated to the left groin. Arterial access obtained with micropuncture set. 6Fr short sheath exchanged with 6fr 45cm flexor sheath over the exchange wire. A 5 macedonian JL4 catheter in over wire. Multiple views taken of left coronary artery. Catheter removed over the exchange wire. A 5 macedonian JR4 catheter in over wire. Multiple views taken of right coronary artery. Catheter removed over the exchange wire. PCI Indication: NSTE. 6 macedonian XB 3.5 guide catheter was inserted over the wire. Guide catheter out over exchange wire. 6 macedonian XB 4 guide catheter was inserted over the wire. Unable to engage, guide catheter out. 6 macedonian JL 4 guide catheter was inserted over the wire. Runthrough guidewire was advanced through the guide catheter to lesion in the mid Circ. Runthrough out. Guide catheter out over the exchange wire. 6 macedonian XB 4.5 guide catheter was inserted over the wire. Runthrough guidewire was advanced through the guide catheter to lesion in the mid Circ. Unable to advance wire. Unable to engage guide catheter, guide catheter out. New 6 macedonian XB 3.5 guide catheter was inserted over the wire. Guide catheter out. New 6 macedonian XB 4 guide catheter was inserted over the wire. Runthrough guidewire was advanced through the guide catheter to lesion in the mid Circ. Guidewire advanced across lesion. Inflation number : 1 A MDT NC EUPHORA RX 3.53D61XQ BALLOON was prepped and advanced across the Mid CX , then inflated to12 KARLO for 0:04 seconds. Balloon out. Inflation number : 2 A MDT NC EUPHORA RX 2.47M06PH BALLOON was prepped and advanced across the Mid CX , then inflated to 12 KARLO for 0:08 seconds. Inflation number: 3 The MDT NC EUPHORA RX 2.10E51TF BALLOON was reinflated across the Mid CX, to 12 KARLO for 0:08 seconds. Inflation number: 4 The MDT NC EUPHORA RX 2.38M00HQ BALLOON was reinflated across the Mid CX, to 12 KARLO for 0:10 seconds. Inflation number: 5 The MDT NC EUPHORA RX 2.22S69PS BALLOON was reinflated across the Mid CX, to 12 KARLO for 0:17 seconds. Balloon out. Runthrough wire pulled into guide, angiography performed. Checking results. Runthrough repositioned to Ramus. Inflation number: 1 The MDT NC EUPHORA RX 2.09Q36SA BALLOON was reinflated across the Ramus, to 16 KARLO for 0:21 seconds. Inflation number: 2 The MDT NC EUPHORA RX 2.24T69JS BALLOON was reinflated across the Ramus, to 14 KARLO for 0:10 seconds. Inflation number : 3 A MDT NC EUPHORA RX 2.45O69SY BALLOON was prepped and advanced across the Ramus , then inflated to 12 KARLO for 0:16 seconds. Inflation number: 4 The MDT NC EUPHORA RX 2.36H98CX BALLOON was reinflated across the Ramus, to 14 KARLO for 0:16 seconds. Balloon out. Angiography performed, checking results. Runthrough wire out. Angiography perfomed, checking results. Guide catheter out. 6fr 45cm flexor sheath exchanged for 6 fr short sheath over exchange wire. ACT drawn. Results 193 seconds. Therapeutic limits - pre-heparin administration 90-150 seconds and monitoring heparin during a vascular procedure >250 seconds. A Suture was successful obtaining hemostatsis at the Left Femoral artery insertion site. Arterial sheath flushed and connected to tranducer and pressure bag with heparinized saline. Post Procedure: Pulses reassessed and unchanged. PERRLA. Strong, equal hand renewals manager bilaterally. No VTE prophylaxis required. Post-op diagnosis: Severe mid circumflex in-stent restenosis, severe in-stent restenosis ramus artery. Severe distal RCA stenosis. Complications: None. Estimated blood loss: 5mL-10mL. Responsiveness - Normal response to verbal stimuli; alert and oriented, PERRLA. Airway - Unaffected, no intervention required; spontaneous ventilation. Circulation: W/N/L, pulses unchanged. Nausea/Vomiting: N/A. Medication's Wasted: Heparin = 3000 unit. Total IV fluids: 150 mL. Medication's Wasted: Other = Hydralizine 10 mg. Procedure completed. Patient transferred by bed to [facility]. Vital chart was stopped. Access Site Site: Left Femoral artery Sheath Size: 6 Fr Hemostasis Method: Suture Hemostasis Success: Successful Procedure Medications Start: 9:47 AM Stop: 9:47 AM Medication: Versed Amount: 1 mg Route: I.V. Start: 9:47 AM Stop: 9:47 AM Medication: Fentanyl Amount: 50 mcg Route: I.V. Start: 9:56 AM Stop: 9:56 AM Medication: Versed Amount: 1 mg Route: I.V. Start: 10:08 AM Stop: 10:08 AM Medication: Hydralazine Amount: 10 mg Route: I.V. Start: 10:13 AM Stop: 10:13 AM Medication: Versed 1 mg and Fentanyl 25 mcg Amount: 1 Route: I.V. Start: 10:19 AM Stop: 10:19 AM Medication: Heparin Amount: 7000 units Route: I.V. Start: 10:44 AM Stop: 10:44 AM Medication: Versed 1 mg and Fentanyl 25 mcg Amount: 1 Route: I.V. Start: 10:48 AM Stop: 10:48 AM Medication: Heparin Amount: 3000 units Route: I.V. Start: 11:14 AM Stop: 11:14 AM Medication: Heparin Amount: 2000 units Route: I.V. I, the attending physician, have reviewed and verified all procedure medications. Yes, all medications given per verbal order History/Risk Factors Hypertension: No Dyslipidemia: No Peripheral Arterial Disease (PAD): No Myocardial Infarction (CA): No Obesity: No Renal Disease: No Tobacco Use: Never Prior Interventions PCI: Yes CABG: No Valve Surgery: No Date of PCI: 01/19/2012 Report Signatures Finalized by Amrit Higginbotham MD on 06/25/2022 07:15 PM
--- NOTE | 2022-06-21 09:47 | W.PM.OPSUD ---
Surgery/Procedure H&P Update DATE OF PROCEDURE: June 21, 2022 DATE H&P PERFORMED: 06/20/22 H&P UPDATE INFORMATION: I have reviewed H&P completed within last 30 days, I have examined patient prior to procedure and No changes to prior documentation PREOP DIAGNOSIS: NSTEMI PRIMARY INDICATION FOR PROCEDURE: NSTEMI PLANNED PROCEDURE: Operation Date: 06/21/22 08:45 Proposed Procedures p Cardiac Catheterization(Left) - Amrit Higginbotham M.D Possible percutaneous coronary intervention PATIENT REASSESSED PRIOR TO SEDATION, WITH NO CHANGE NOTED: Yes PHYSICAL EXAM: alert, oriented x 3, clear to auscultation bilaterally and regular rate & rhythm AIRWAY EVAL/ANESTHESIA PLAN: ASA III, Local Anesthesia, Risks, benefits & alternatives of sedation and/or procedure discussed and Patient agrees to continue as planned ADDITIONAL INFORMATION: Moderate sedatiobn
--- NOTE | 2022-06-21 09:49 | PC.NURSE ---
Patient left floor via bed to clinical laboratory medical director.
--- NOTE | 2022-06-21 11:04 | PM.PN ---
Subjective Subjective: Coronary angiograms postponed secondary to groin pain yesterday Testicle ultrasound did not show any sign of testicle torsion Recent hydrocele Which can be managed outpatient/urology referral He can go for coronary angiogram today He is n.p.o. No active chest pain or tightness Vitals/I&O/Wt Last Vital Signs Temp 97.6 F 06/21/22 08:00 Pulse 77 06/21/22 08:20 Resp 17 06/21/22 08:20 BP 140/85 06/21/22 08:00 Pulse Ox 100 06/21/22 08:20 O2 Del Method 06/21/22 08:20 O2 Flow Rate 2 06/21/22 08:20 06/20/22 06/21/22 06/21/22 22:59 06:59 14:59 Intake Total 360 / 1600 0 / 1600 Output Total 750 / 750 225 / 975 Balance -390 / 850 -225 / 625 Weight last 48 hrs Weight 70.307 kg Physical Exam Narrative: Patient looks dehydrated Malnourished Muscle mass loss No active chest pain S1, S2 Abdomen soft Awake and alert Family at the bedside Currently doing well on room air Data : 06/20/22 04:29 06/21/22 04:55 A&P Assessment and plan (1) NSTEMI (non-ST elevated myocardial infarction): (2) Unstable angina: (3) History of coronary artery disease: (4) Hydrocele: Plan Plan for angiogram today NSTEMI Finish 48 hours of therapeutic Lovenox Continue aspirin Plavix Currently requiring 2 L of oxygen Left-sided hydrocele with cyst which was causing pain Conservative management Will need outpatient urology referral Full code Cardiac diet after angiogram Plan to discharge him later today versus tomorrow depending on angiogram result Attestations Medical Necessity Statement*: Discharge tomorrow if stable Time Spent in Patient Care: 40 Coding Level of Care Code 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
--- NOTE | 2022-06-21 11:39 | PC.NURSE ---
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 6 fr arterial sheath placed in left femoral artery.
--- NOTE | 2022-06-21 13:55 | PM.PN ---
Subjective Subjective: Patient underwent coronary angiogram. It critical in-stent restenosis of mid left circumflex artery with 99% stenosis. This is likely culprit for non-ST elevation [place]. This underwent successful revascularization with balloon angioplasty. Also had diffuse, severe in-stent restenosis of ramus artery. He underwent successful revascularization with balloon angioplasty. LAD is small to medium sized vessel. Has mid segment moderate to severe stenosis. Medically treated. RCA has severe distal vessel stenosis that is about 70 to 80%. Plan for staged revascularization as outpatient. He is chest pain free. Vitals/I&O/Wt Last Vital Signs Temp 97.7 F 06/21/22 12:00 Pulse 78 06/21/22 13:26 Resp 20 H 06/21/22 13:26 BP 147/84 06/21/22 12:32 Pulse Ox 97 06/21/22 13:26 O2 Del Method 06/21/22 13:26 O2 Flow Rate 3 06/21/22 13:26 06/20/22 06/21/22 06/21/22 22:59 06:59 14:59 Intake Total 360 / 1600 0 / 1600 Output Total 750 / 750 225 / 975 250 / 250 Balance -390 / 850 -225 / 625 -250 / -250 Weight last 48 hrs Weight 155 lb Physical Exam Narrative: GENERAL: Patient is alert, awake and oriented x3. [] NECK: No jugular vein distension. [] HEENT: No cyanosis. No icterus. No pallor. [] HEART: Regular S1 and S2. No murmur, rub or gallop. [] LUNGS: Clear to auscultate bilaterally. [] ABDOMEN: Soft CENTRAL NERVOUS SYSTEM: Grossly nonfocal. [] EXTREMITIES: Lower extremities with no edema bilaterally. Data : 06/20/22 04:29 06/21/22 04:55 A&P Assessment and plan (1) NSTEMI (non-ST elevated myocardial infarction): (2) History of coronary artery disease: (3) COPD (chronic obstructive pulmonary disease): (4) Byron's granulomatosis with vasculitis: Plan Patient underwent successful revascularization of mid to left circumflex artery critical in-stent restenosis with balloon angioplasty. Also had a balloon angioplasty of in-stent restenosis of ramus artery. Distal RCA stenosis is severe but appears stable and staged procedure will be performed as outpatient. Continue aspirin and Plavix Echocardiogram performed showing normal LV systolic function. Thank you for involving us with care of this patient. We will continue to follow. Please call with questions. Attestations Medical Necessity Statement*: Care expected to cross 2 midnights. Coding Level of Care Code Acute [employer] for g Fwd Diagnoses NSTEMI (non-ST elevated myocardial infarction) I21.4 History of coronary artery disease Z86.79 COPD (chronic obstructive pulmonary disease) J44.9 Byron's granulomatosis with vasculitis M31.30; I77.6
[2022-06-21] MEDS: sodium chloride 0.9% 1,000 ML 100 ML IV (14:17)
[2022-06-21 15:35] LABS: Partial Thromboplastin Time > 250.0 SECONDS (23.9-36.7)
[2022-06-21 17:50] LABS: Partial Thromboplastin Time 35.3 SECONDS (23.9-36.7)
[2022-06-21] MEDS: fentaNYL 50 mcg/mL INJ 2mL IVP (19:59)
--- NOTE | 2022-06-21 20:45 | PC.NURSE ---
At 2014 left groin sheath was removed and manual pressure applied x 20 minutes. No hematoma formed. Palpable pedal pulses. Dressing a[[lied to site (2x2 with clear covering. atient instructed to keep leg straight and not to bend at the groin for 6 hours.
[2022-06-21] MEDS: metoprolol tartrate 25 mg Tablet PO (21:38)
[2022-06-21] MEDS: temazepam 15 mg Capsule PO (21:53)
[2022-06-21] MEDS: benzonatate 100 mg Capsule PO (22:20)
[2022-06-22] VITALS (7 sets, daily range): BP systolic 121–130; BP diastolic 64–67; PULSE 63–74; RESP 15–20; TEMP 36.6–36.8; O2SAT 93–96
[2022-06-22 05:04] LABS: Basophils # 0.1 10^3/uL (0.0-0.1); Basophils % 0.9 %; Eosinophils # 0.4 10^3/uL (0.0-0.8); Eosinophils % 3.6 %; Hematocrit 34.3 % (42.0-52.0); Hemoglobin 10.9 g/dL (11.7-16.6); Lymphocytes # 1.5 10^3/uL (0.8-4.8); Lymphocytes % 13.9 %; Mean Corpuscular HGB Conc 31.8 g/dL (30.0-36.0); Mean Corpuscular Hemoglobin 31.6 pg (28.0-34.0); Mean Corpuscular Volume 99.4 fl (80-94); Mean Platelet Volume 11.3 fL (7.4-10.4); Monocytes # 2.3 10^3/uL (0.2-0.9); Monocytes % 21.2 %; Neutrophils # 6.31 10^3/uL (1.8-7.7); Neutrophils % 58.1 %; Nucleated Red Blood Cells % 0 %; Platelet Count 217 10^3/cmm (130-400); Red Blood Count 3.45 10^6/uL (4.1-5.3); Red Cell Distribution Width 14.1 % (12.1-15.1); White Blood Count 10.9 10^3/uL (4.0-10.0)
[2022-06-22 05:30] LABS: Anion Gap 7.5 (5-19); Blood Urea Nitrogen 13 mg/dL (8-23); Calcium 8.1 mg/dL (8.5-10.5); Carbon Dioxide 30 mmol/L (22-29); Chloride 102 mmol/L (98-107); Glucose 73 mg/dL (65-115); Osmolality Calculated 281 mOsm/kg (285-295); Potassium 3.5 mmol/L (3.5-5.1); Sodium 136 mmol/L (136-145)
[2022-06-22] MEDS: morphine IR 15 mg Tablet PO (05:44)
[2022-06-22] MEDS: benzonatate 100 mg Capsule PO (05:49)
--- NOTE | 2022-06-22 07:58 | P.DS_ITS ---
Discharge Providers Date of Admission: 06/19/22 20:22 Date of Discharge: June 22, 2022 Attending Provider at Admission: Talya Andino MD Attending Provider at Discharge: Susanne Padilla MD Primary Care Provider: Gerardo Hutchison MD Diagnoses at Discharge Discharge Diagnosis (1) NSTEMI (non-ST elevated myocardial infarction): Status: Acute (2) History of coronary artery disease: Status: Acute (3) COPD (chronic obstructive pulmonary disease): Status: Acute (4) Byron's granulomatosis with vasculitis: Status: Acute Reason for Visit Reason for Visit: CHEST PRESSURE Hospital Course Hospital Course This is a pleasant 81-year male who was admitted for NSTEMI, he has established history of coronary disease with multiple stents, active smoker, his chest pain was typical, cardiology was consulted for coronary angiogram, Patient underwent coronary angiogram.? It critical in-stent restenosis of mid left circumflex artery with 99% stenosis.? This is likely culprit for non-ST elevation [place].? This underwent successful revascularization with balloon angioplasty.? Also had diffuse, severe in-stent restenosis of ramus artery.? He underwent successful revascularization with balloon angioplasty.? LAD is small to medium sized vessel.? Has mid segment moderate to severe stenosis.? Medically treated.? RCA has severe distal vessel stenosis that is about 70 to 80%.? Plan for staged revascularization as outpatient. Please note he was complaining of right-sided groin pain, there is no signs of hernia, no signs of obstruction, testicular ultrasound with duplex was conducted when I discussed this case with Dr. Duckworth, it did not show any sign of testicular torsion it did show hydrocele and epididymal cyst, I will give him opioids and have him follow-up with Dr. Duckworth outpatient. Hip CT scan did not show any avascular necrosis or any fractures. He was hypotensive on arrival when he got 5 doses of nitro glycerin, I put him on stress dose steroids because at home he takes chronic steroids his blood pressure improved with IV fluids and stress dose steroids, He will need staged RCA intervention, continue aspirin, Plavix, atorvastatin, and Toprol, follow-up with Dr. Mederos in 1 month and Sofya Andrade within 2 weeks. Physical Exam Narrative: Malnourished Muscle mass loss No active chest pain S1, S2 Abdomen soft Awake and alert Pleasant during my evaluation Enthusiastic to go home Currently doing well on room air Discharge Data Studies Completed and Pending Completed Studies During Hospitalization Category Date Time Status CT abdomen pelvis wo con [id number] Stat Cat Scan 06/20/22 12:21 Completed XR chest 1V portable [id number] Stat Exams 06/19/22 17:30 Completed XR hip RT 1V wo/w pel [id number] Stat Exams 06/19/22 19:07 Completed CV. echo complete* [id number] Routine Ultrasound 06/20/22 20:22 Completed US testicular [US scrotum [id number]] Stat Ultrasound 06/20/22 17:12 Completed Pending at discharge Category Date Time Status WHAT JOB TITLES MEAN request for service Routine Exams 06/20/22 12:00 Stop Req WHAT JOB TITLES MEAN request for service Routine Exams 06/21/22 09:42 Ordered Radiology Impressions Chest X-Ray 06/19/22 17:30 IMPRESSION: No acute radiographic findings. Hip X-Ray 06/19/22 19:07 IMPRESSION: Right hip prosthesis appears intact. No acute radiographic findings. Abdomen/Pelvis CT 06/20/22 12:21 IMPRESSION: 1. 3.1 cm infrarenal abdominal aortic aneurysm. 2. Gastric wall thickening. 3. Prominent stool and diverticula, without pericolonic inflammation. 4. Additional findings as described above. COMMENTS: Consistent with the [employer]'s Incidental Findings Committee white paper (J Am Natalio Radiol 2018): Any incidental renal lesion less than 1 cm or classified as too small to characterize, or any incidental cystic renal lesion characterized as simple-appearing, is likely benign. No follow-up imaging is recommended for these lesions per consensus recommendations based on imaging criteria. Scrotum Ultrasound 06/20/22 17:12 IMPRESSION: 1. Bilateral hydroceles 2. Left epididymal cysts 3. 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 Asymmetry of the testes with the right being smaller than the left, a finding of uncertain etiology and significance. Laboratory Results WBC 10.9 10^3/uL (4.0-10.0) H 06/22/22 04:20 RBC 3.45 10^6/uL (4.1-5.3) L 06/22/22 04:20 Hgb 10.9 g/dL (11.7-16.6) L 06/22/22 04:20 Hct 34.3 % (42.0-52.0) L 06/22/22 04:20 MCV 99.4 fl (80-94) H 06/22/22 04:20 MCH 31.6 pg (28.0-34.0) 06/22/22 04:20 MCHC 31.8 g/dL (30.0-36.0) 06/22/22 04:20 RDW 14.1 % (12.1-15.1) 06/22/22 04:20 Plt Count 217 10^3/cmm (130-400) 06/22/22 04:20 MPV 11.3 fL (7.4-10.4) H 06/22/22 04:20 Neut % (Auto) 58.1 % 06/22/22 04:20 Lymph % (Auto) 13.9 % 06/22/22 04:20 [place] % (Auto) 21.2 % 06/22/22 04:20 Eos % (Auto) 3.6 % 06/22/22 04:20 Baso % (Auto) 0.9 % 06/22/22 04:20 Neut # (Auto) 6.31 10^3/uL (1.8-7.7) 06/22/22 04:20 Lymph # (Auto) 1.5 10^3/uL (0.8-4.8) 06/22/22 04:20 [place] # (Auto) 2.3 10^3/uL (0.2-0.9) H 06/22/22 04:20 Eos # (Auto) 0.4 10^3/uL (0.0-0.8) 06/22/22 04:20 Baso # (Auto) 0.1 10^3/uL (0.0-0.1) 06/22/22 04:20 Nucleated RBC % (auto) 0 % 06/22/22 04:20 Nucleated RBCs # 0.0 /100WBC 06/22/22 04:20 APTT 35.3 SECONDS (23.9-36.7) D 06/21/22 17:16 Sodium 136 mmol/L (136-145) 06/22/22 04:20 Potassium 3.5 mmol/L (3.5-5.1) 06/22/22 04:20 Chloride 102 mmol/L (98-107) 06/22/22 04:20 Carbon Dioxide 30 mmol/L (22-29) H 06/22/22 04:20 Anion Gap 7.5 (5-19) 06/22/22 04:20 BUN 13 mg/dL (8-23) 06/22/22 04:20 Creatinine 0.8 mg/dL (0.7-1.2) 06/22/22 04:20 GFR Calculation Not Reportable 06/22/22 04:20 Glucose 73 mg/dL (65-115) 06/22/22 04:20 Calculated Osmolality 281 mOsm/kg (285-295) L 06/22/22 04:20 Calcium 8.1 mg/dL (8.5-10.5) L 06/22/22 04:20 Magnesium 1.8 mg/dL (1.7-2.3) 06/20/22 04:29 Total Bilirubin 0.3 mg/dL (0.15-1.2) 06/19/22 17:33 AST 18 U/L (0-40) 06/19/22 17:33 ALT 9 U/L (0-41) 06/19/22 17:33 Alkaline Phosphatase 71 U/L (40-130) 06/19/22 17:33 Troponin T Baseline 69 ng/L (0-15) H 06/19/22 17:33 Troponin T 120 Minute 64.88 ng/L (0-15) H 06/19/22 20:32 Delta Troponin T -4.12 ABS# (0-10) L 06/19/22 20:32 Troponin T Hi Sens 6Hr 73.36 ng/L (0-15) H 06/19/22 22:16 Troponin T Hi Sens 6Hr Delta 4.36 ng/L (0-12) 06/19/22 22:16 Total Protein 6.1 g/dL (6.6-8.7) L 06/19/22 17:33 Albumin 4.1 g/dL (3.5-5.2) 06/19/22 17:33 Globulin 2.0 g/dL (1.3-4.6) 06/19/22 17:33 TSH 1.26 uIU/mL (0.27-4.20) 06/19/22 20:32 Vitals Last Vital Signs Temp 98.2 F 06/22/22 04:29 Pulse 73 06/22/22 07:56 Resp 19 H 06/22/22 07:56 BP 129/67 06/22/22 04:29 Pulse Ox 94 06/22/22 07:56 O2 Del Method 06/22/22 07:56 O2 Flow Rate 2 06/22/22 07:56 Discharge Plan Discharge Patient Disposition: Home Condition: Stable Prescriptions: New aspirin 81 mg Tablet,Delayed Release (Dr/Ec) 81 mg PO DAILY Qty: 60 2RF atorvastatin 40 mg Tablet 40 mg PO DAILY Qty: 60 2RF clopidogrel 75 mg Tablet 75 mg PO DAILY Qty: 60 3RF Toprol XL 25 mg tablet extended release 24 hr 12.5 mg PO DAILY Qty: 90 0RF oxycodone-acetaminophen 5-325 mg tablet 1 tab PO Q8H PRN (Reason: pain) Qty: 10 0RF Continued albuterol sulfate 2.5 mg /3 mL (0.083 %) solution for nebulization 2.5 mg INHALATION QID PRN (Reason: Shortness Of Breath) mirtazapine 30 mg tablet 30 mg PO BEDTIME nitroglycerin 0.4 mg tablet, sublingual 0.4 mg SUBLINGUAL Q5M PRN (Reason: Chest Pain) Rx Instructions: do not exceed 3 doses per episode tamsulosin 0.4 mg capsule 0.8 mg PO QPM aspirin 325 mg Tablet 325 mg PO QAM alendronate 70 mg tablet 70 mg PO Q7D Rx Instructions: on sundays zinc acetate 50 mg (zinc) Capsule 50 mg PO DAILY prednisone 5 mg tablet 5 mg PO QAM acetaminophen 500 mg Tablet 1,000 mg PO Q4H PRN (Reason: Pain) esomeprazole magnesium 40 mg capsule,delayed release(DR/EC) 40 mg PO QAM Rituxan 10 mg/mL Concentrate See Rx Instructions .ROUTE .COMPLEX Rx Instructions: every 6 months (due to get 07/10/22) Vitamin D3 125 mcg (5,000 unit) Tablet 125 mcg PO DAILY Discontinued metoprolol tartrate 25 mg tablet 25 mg PO BID cyclobenzaprine 10 mg tablet 10 mg PO BID PRN (Reason: Muscle Spasm) Discharge Orders: Discharge Order (Routine); Ordered 06/22/22 Ordered By: Susanne Padilla Referrals: Gerardo Hutchison MD [Primary Care Provider] - 4-7 days (Please call patient with appointment information.) Alcon Duckworth MD [Physician] - 1-3 days (Will call patient with appointment information ) Amrit Higginbotham M.D [Physician] - 1 month (Will call patient with appointment information. ) Sofya Andrade FNP [Nurse Practitioner] - 2 weeks Discharge Diet: Cardiac Discharge Activity: Increase activity as tolerated Patient Instructions: Metoprolol (By mouth), Oxycodone/Acetaminophen (By mouth), Aspirin (By mouth), Atorvastatin (By mouth), Clopidogrel (By mouth), Opioid Safety, Post Angiogram Home Care Instructions Patient's Health Concerns: You underwent successful revascularization of mid to left circumflex artery critical in-stent restenosis with balloon angioplasty.? Also had a balloon angioplasty of in-stent restenosis of ramus artery.? Distal RCA stenosis is severe but appears stable and staged procedure will be performed as outpatient. For hydrocele of testes you need to call urology clinic on Thursday to make an appointment Discharge Attestations Time Spent in Discharge Care*: less than 30 min Quality Metrics Clinical Quality Measures [ No reported AMI, CVA or VTE this stay] Coding Level of Care Code Acute [facility] note Diagnoses NSTEMI (non-ST elevated myocardial infarction) I21.4 History of coronary artery disease Z86.79 COPD (chronic obstructive pulmonary disease) J44.9 Byron's granulomatosis with vasculitis M31.30; I77.6
[2022-06-22] MEDS: atorvastatin 40 mg Tablet 80 MG PO (09:15)
[2022-06-22] MEDS: aspirin 81 mg EC Tablet PO (09:18)
[2022-06-22] MEDS: pantoprazole DR 40 mg Tablet PO (09:18)
[2022-06-22] MEDS: acetaminophen 325 mg Tablet 650 MG PO (09:18)
[2022-06-22] MEDS: sennosides-docusate Tablet 1 TAB PO (09:19)
[2022-06-22] MEDS: ALPRAZolam 0.5 mg Tablet 0.25 MG PO (09:20)
[2022-06-22] MEDS: metoprolol tartrate 25 mg Tablet PO (09:30)
[2022-06-22] MEDS: clopidogrel 75 mg Tablet PO (09:30)
[2022-06-22] MEDS: hydrocortisone 10 mg Tablet 5 MG PO (09:30)
--- NOTE | 2022-06-22 10:27 | P.PN_ITS ---
Subjective Subjective: Patient is doing well. Denies any chest pain. Vitals/I&O/Wt Last Vital Signs Temp 97.9 F 06/22/22 08:37 Pulse 74 06/22/22 08:37 Resp 15 06/22/22 08:37 BP 130/66 06/22/22 08:37 Pulse Ox 93 06/22/22 08:37 O2 Del Method 06/22/22 08:37 O2 Flow Rate 2 06/22/22 07:56 06/21/22 06/22/22 06/22/22 22:59 06:59 14:59 Intake Total 240 / 240 240 / 240 Output Total 320 / 570 Balance 240 / -10 -320 / -330 240 / 240 Physical Exam Narrative: GENERAL: Patient is alert, awake and oriented x3. [] NECK: No jugular vein distension. [] HEENT: No cyanosis. No icterus. No pallor. [] HEART: Regular S1 and S2. No murmur, rub or gallop. [] LUNGS: Clear to auscultate bilaterally. [] ABDOMEN: Soft CENTRAL NERVOUS SYSTEM: Grossly nonfocal. [] EXTREMITIES: Lower extremities with no edema bilaterally. Data : 06/22/22 04:20 06/22/22 04:20 A&P Assessment and plan (1) NSTEMI (non-ST elevated myocardial infarction): (2) History of coronary artery disease: (3) COPD (chronic obstructive pulmonary disease): (4) Byron's granulomatosis with vasculitis: Plan Patient underwent successful revascularization of mid to left circumflex artery critical in-stent restenosis with balloon angioplasty. Also had a balloon angioplasty of in-stent restenosis of ramus artery. Distal RCA stenosis is severe but appears stable and staged procedure will be performed as outpatient as had significant contrast use. Continue aspirin and Plavix Echocardiogram performed showing normal LV systolic function. Thank you for involving us with care of this patient. Patient is stable to be discharged from cardiology standpoint. We will plan on outpatient staged PCI of RCA in 4 weeks. Please call with questions. Attestations Medical Necessity Statement*: Care expected to cross 2 midnights. 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
--- NOTE | 2022-06-22 11:44 | PC.SOCIAL ---
IMM Update pg 2 of IMM updated and reviewed w/ patient. Copy provided and Copy dated, initialed and placed in chart.
== END 2022-06-22 12:05 | disposition home or self-care (01) | DRG 250 ==
LOC: ER 17:56 → MEDSURG 19:57
PROVIDERS: Internal Medicine; Admitting Provider Internal Medicine; Emergency Provider Family Medicine; PCP Family Medicine; Visit Provider Internal Medicine
PROC: 02713ZZ Dilation of Coronary Artery, Two Arteries, Percutaneous Approach (ICD-10-PCS; principal; 2022-06-21 08:45)
PROC: 02713ZZ Dilation of Coronary Artery, Two Arteries, Percutaneous Approach (ICD-10-PCS; 2022-06-21 08:45)
DX: T82.855A Stenosis of coronary artery stent, initial encounter (principal); I21.4 Non-ST elevation (NSTEMI) myocardial infarction; I25.110 Atherosclerotic heart disease of native coronary artery with unstable angina pectoris; M31.30 Wegener's granulomatosis without renal involvement; D84.821 Immunodeficiency due to drugs; Y71.8 Miscellaneous cardiovascular devices associated with adverse incidents, not elsewhere classified; F17.200 Nicotine dependence, unspecified, uncomplicated; Z79.52 Long term (current) use of systemic steroids; J44.9 Chronic obstructive pulmonary disease, unspecified; M47.816 Spondylosis without myelopathy or radiculopathy, lumbar region; M48.061 Spinal stenosis, lumbar region without neurogenic claudication; Z79.69 Long term (current) use of other immunomodulators and immunosuppressants; M81.0 Age-related osteoporosis without current pathological fracture; Z96.641 Presence of right artificial hip joint; I95.9 Hypotension, unspecified; I71.40 Abdominal aortic aneurysm, without rupture, unspecified; N43.3 Hydrocele, unspecified; R10.30 Lower abdominal pain, unspecified; Z79.51 Long term (current) use of inhaled steroids
CPT/HCPCS: 36415; 71045; 73501; 74176; 76870; 80048; 80053; 83735; 84443; 84484; 85025; 85347; 85730; 92920; 93005; 93306; 93454; 96360; 96361; 96372; 99152; 99153; 99285; C1725; C1769; C1887; C1894; J0360; J1644; J1650; J1720; J2250; J2270; J3010; J3490; J7030; J7040; J8499; Q0163; Q9967

== ENCOUNTER → 2022-07-03 14:28 | Outpatient (BNVA) | payer MEDICARE, SELFPAY | PROVIDERS: PCP Family Medicine; Visit Provider Nurse Practitioner Family | DX: I25.10 Atherosclerotic heart disease of native coronary artery without angina pectoris (principal) | CPT/HCPCS: 36415; 80048; 99213; 99214 ==

== ENCOUNTER → 2022-07-09 14:19 | Outpatient (BNVA) | payer MEDICARE, SELFPAY | PROVIDERS: PCP Family Medicine; Visit Provider Urology | DX: N40.1 Benign prostatic hyperplasia with lower urinary tract symptoms (principal); R10.31 Right lower quadrant pain; N43.3 Hydrocele, unspecified; N50.0 Atrophy of testis; N50.819 Testicular pain, unspecified | CPT/HCPCS: 51741; 51798; 81003; 99203 ==

== ENCOUNTER 2022-07-14 08:31 | Outpatient (CLI) | payer MEDICARE, SELFPAY ==
[2022-07-14 09:04] VITALS: BP 112/73; PULSE 85; RESP 18; TEMP 36.6; O2SAT 99
[2022-07-14] MEDS: sodium chloride 0.9% 250 ML 50 ML IV (09:20)
[2022-07-14] MEDS: acetaminophen 325 mg Tablet 650 MG PO (09:21)
[2022-07-14] MEDS: diphenhydrAMINE 50 mg/mL SDV 1mL IVP (09:23)
[2022-07-14 09:29] LABS: Basophils # 0.1 10^3/uL (0.0-0.1); Eosinophils # 0.5 10^3/uL (0.0-0.8); Eosinophils % 4.6 %; Hematocrit 37.3 % (42.0-52.0); Lymphocytes % 8.9 %; Mean Corpuscular HGB Conc 32.2 g/dL (30.0-36.0); Mean Corpuscular Hemoglobin 31.2 pg (28.0-34.0); Mean Corpuscular Volume 96.9 fl (80-94); Mean Platelet Volume 10.5 fL (7.4-10.4); Monocytes # 1.4 10^3/uL (0.2-0.9); Monocytes % 12.6 %; Neutrophils # 8.02 10^3/uL (1.8-7.7); Neutrophils % 71.1 %; Nucleated Red Blood Cells % 0 %; Platelet Count 333 10^3/cmm (130-400); Red Blood Count 3.85 10^6/uL (4.1-5.3); Red Cell Distribution Width 14.6 % (12.1-15.1); White Blood Count 11.3 10^3/uL (4.0-10.0)
[2022-07-14 09:38] LABS: Alanine Aminotransferase 12 U/L (0-41); Albumin Level 4.1 g/dL (3.5-5.2); Alkaline Phosphatase 84 U/L (40-130); Aspartate Amino Transferase 18 U/L (0-40); Total Bilirubin 0.3 mg/dL (0.15-1.2); Total Protein 6.1 g/dL (6.6-8.7)
[2022-07-14 09:48] LABS: Erythrocyte Sedimentation Rate 3 mm/hr (0-10)
[2022-07-14 09:59] VITALS: BP 115/72; PULSE 70; RESP 18; TEMP 36.4; O2SAT 99
[2022-07-14 10:39] VITALS: BP 114/71; PULSE 73; RESP 18; TEMP 36.3; O2SAT 95
[2022-07-14 11:21] VITALS: BP 116/71; PULSE 76; RESP 18; TEMP 36.4; O2SAT 96
[2022-07-14 12:42] VITALS: BP 107/64; PULSE 74; RESP 18; TEMP 36.2; O2SAT 98
== END 2022-07-14 08:32 | disposition home or self-care (01) ==
PROVIDERS: PCP Family Medicine; Visit Provider Internal Medicine Rheumatology
DX: M31.30 Wegener's granulomatosis without renal involvement (principal); Z79.899 Other long term (current) drug therapy
CPT/HCPCS: 80076; 82565; 85025; 85651; 96365; 96366; 96375; J1200; J2920; J7050; J9312

== ENCOUNTER 2022-09-02 08:57 | Outpatient (CLI) | payer MEDICARE, SELFPAY ==
[2022-09-02] VITALS (35 sets, daily range): BP systolic 101–157; BP diastolic 51–96; PULSE 60–82; RESP 14–23; TEMP 36.8–36.9; O2SAT 90–100; BMI 20.5
--- NOTE | 2022-09-02 09:00 | XACV_ITS ---
Exam Room: 2 Ht: 165 cm Wt: 58 kg BSA: 1.63 m2 Gender: Male : 1940 Any Known Allergies: Other Exam Priority: Routine Procedure(s): Procedure Description: Diagnostic procedure Procedure Description: PCI procedure Procedure Description: Drug Eluting Coronary Stent Procedure Description: PTCA Procedure Description: Coronary Angiography Diagnostic Cath Status: Elective Diagnostic Findings * INDICATION: 82-year-old man with past medical history of CAD and Byron's granulomatosis who was recently admitted for NSTEMI and underwent balloon angioplasty of the left circumflex artery and ramus artery has presented for staged PCI of RCA. He had to use occasional nitros during the last 1 month. * Left Main is short and has no significant disease. * Left Anterior Descending has moderate luminal irregularities. * Mid Right Coronary Artery: obstructive 70-80% stenosis, ROBERT: 3 flow. * Proximal Circumflex: has moderate to severe 60-70% stenosis, ROBERT: 3 flow. * Distal Right Coronary Artery: obstructive 70% stenosis, ROBERT: 3 flow. * Coronary angiography shows right dominance. PCI Status: Elective PCI Indication: Staged PCI Interventional Findings * PROCEDURE DETAIL: We engaged RCA with JR4 guide catheter. IV heparin was administered to maintain ACT above 250S. 0.014 run-through guidewire was used to cross the 2 stenoses. We predilated both with 2.5 x 12 mm semicompliant balloon. Distal RCA is not a large vessel and with balloon angioplasty he had a good result. We then proceeded with placement of 2.75 x 18 mm resolute [place] drug-eluting stent in the mid vessel overlapping with the prior stent. At this time final angiogram was performed that showed excellent stent expansion, no residual stenosis and ROBERT-3 flow. Patient left the Metal Fitter in a stable condition.. * Mid Right Coronary Artery: 70% stenosis treated with a AB TREK 2.50X12 RX BALLOON, and MDT R KRISTAL 2.75X18 NICHOLAS. 0% residual stenosis, ROBERT: 3 flow. * Distal Right Coronary Artery: 70% stenosis treated with a AB TREK 2.50X12 RX BALLOON. 0% residual stenosis, ROBERT: 3 flow. Conclusions 1. Severe mid and distal RCA stenosis. Mid RCA was revascularized with NICHOLAS x1. 2. Distal RCA treated balloon angioplasty.. 3. Patient has moderate to severe proximal left circumflex artery stenosis. However left main artery is short making intervention technically challenging and stenosis does not appear to be critical. We will medically manage it. 4. Mid Right Coronary Artery was treated with a Balloon, and Drug Eluting Stent. 5. Distal Right Coronary Artery was treated with a Balloon. Recommendations * Aggressive risk factor modification. * Dual antiplatelet therapy with aspirin and Plavix for at least 1 year. * High intensity statin therapy. * Outpatient cardiology follow-up in 4 weeks. Interventional RX Recommendation: PCI w/o planned CABG Diagnostic RX Recommendation: PCI w/o planned CABG Anticoagulation: Heparin Pressures Phase:Rest AO : 127 / 66 ( 94 ) @ 10:15:00 AM 142 / 62 ( 94 ) @ 10:22:00 AM Clinical Evaluation EBL: 5mL-10mL Procedural Details Procedure Consent Obtained. Admit Source: Out Patient. Pre-Procedure Time Out. Identified patient by full name and date of as verbalized by the patient/guarantor. Does the consent match the physician's order: Yes. Accurate & Complete Informed Consent: Yes. Inpatient/Outpatient History & Physical on Chart: Yes. If H&P is completed, is and addenduem needed: No; If yes, is the addendum complete: N/A. Visualize and Verify Site with Patient/Guarantor: N/A. Relevant Radiology Images available: N/A. The risks, benefits, and alternatives of sedation and/or procedure were discussed by physician. The patient agrees to continue. Procedure started. [facility] Clinical Fraility Score: 4: Vulnerable. Metal Fitter Indications: staged PCI. Chest Pain Symptom Assessment: Typical Angina Symptoms. Cardiovascular Instability: No. Correct patient, site and procedure confirmed by cath team. PERRLA. Strong, equal hand camera supervisor bilaterally. Lungs clear x 5 lobes. IV Site on Arrival: 18 gauge in the right anticubital. IV Fluids: 0.9% NaCl at KVO. 0 mL infused prior to roving tester laboratory. Pre Procedural Pulses: right radial was Doppled. Pre Procedural Pulses: left radial was 2+. Pre Procedural Pulses: bilateral posterior tibial was 3+. Pre Procedural Pulses: bilateral dorsalis pedis was 3+. Oxygen started at 0liters/min via nasal canula. bilateral groins was prepped with chloroprep then draped in the usual sterile fashion. Physician notified. Baseline sample Acquired. HR: 63 BPM. Physician arrived. Physician scrubbed in. Immediate Pre-Procedure Time Out. Correct Patient: Yes; Correct Procedure: Yes; Correct Site: Yes; Correct Patient Position: Yes; Correct Supplies: Yes; Dried Flammable Prep: Yes; Blood Products Available: N/A;. Lidocaine 1% infiltrated to the left groin. Arterial access obtained with micropuncture set. Gidewire in. A 5 [place] JL5 catheter in over wire. Multiple views taken of left coronary artery. Catheter out. ACT drawn. Results 184 seconds. Therapeutic limits - pre-heparin administration 90-150 seconds and monitoring heparin during a vascular procedure >250 seconds. 6 [place] JR 4 guide catheter was inserted over the wire. Multiple views taken of right coronary artery. Runthrough guidewire was advanced through the guide catheter to lesion in the distal RCA. Inflation number : 1 A AB TREK 2.50X12 RX BALLOON was prepped and advanced across the Dist RCA , then inflated to 8 KARLO for 0:17 seconds. Inflation number: 1 The AB TREK 2.50X12 RX BALLOON was reinflated across the Mid RCA, to 10 KARLO for 0:20 seconds. Inflation number: 2 The AB TREK 2.50X12 RX BALLOON was reinflated across the Mid RCA, to 8 KARLO for 0:16 seconds. Balloon out. Results checked. Results checked. Inflation Number : 3 A PHANI Hedrick KRISTAL 2.75X18 NICHOLAS -Lot Number# [id number] exp date 08/12/2024 was prepped and advanced across the Mid RCA. The stent was deployed at 12 KARLO for 0:21 seconds. Inflation number: 4 The stent balloon was then re-inflated across the Mid RCA to 14 KARLO for 0:14 seconds. Stent balloon out over wire. Results checked. Runthrough wire out. Results checked. ACT drawn. Results 468 seconds. Therapeutic limits - pre-heparin administration 90-150 seconds and monitoring heparin during a vascular procedure >250 seconds. 6Fr brite tip sheath exchanged for the 6FR short sheath. A Suture was successful obtaining hemostatsis at the Right Femoral artery insertion site. Post Procedure: Pulses reassessed and unchanged. PERRLA. Strong, equal hand camera supervisor bilaterally. No VTE prophylaxis required. Total IV fluids: 100 mL. Post-op diagnosis: severe stenosis in mid and distal RCA. Post balloon angioplasty of distal RCA and Stent of Mid RCA. Medication's Wasted: Lidocaine 1% = 4 mL. Medication's Wasted: Nitro = 49.8 mg. Complications: none. Estimated blood loss: 5mL-10mL. Responsiveness - Normal response to verbal stimuli; alert and oriented, PERRLA. Airway - Unaffected, no intervention required; spontaneous ventilation. Circulation: W/N/L, pulses unchanged. Nausea/Vomiting: No. Procedure completed. Patient transferred by bed to CPRU. Vital chart was stopped. Access Site Site: Right Femoral artery Sheath Size: 6 Fr Hemostasis Method: Suture Hemostasis Success: Successful Procedure Medications Start: 10:05 AM Stop: 10:05 AM Medication: Versed Amount: 1 mg Route: I.V. Start: 10:05 AM Stop: 10:05 AM Medication: Fentanyl Amount: 50 mcg Route: I.V. Start: 10:13 AM Stop: 10:13 AM Medication: Heparin Amount: 6000 units Route: I.V. Start: 10:25 AM Stop: 10:25 AM Medication: Heparin Amount: 3000 units Route: I.V. Start: 10:36 AM Stop: 10:36 AM Medication: Nitrogylcerin Amount: 200 mcg Route: I.C. Start: 10:36 AM Stop: 10:36 AM Medication: Versed Amount: 1 mg Route: I.V. Start: 10:36 AM Stop: 10:36 AM Medication: Fentanyl Amount: 50 mcg Route: I.V. I, the attending physician, have reviewed and verified all procedure medications. Yes, all medications given per verbal order History/Risk Factors Hypertension: Yes Dyslipidemia: Yes Peripheral Arterial Disease (PAD): No Myocardial Infarction ([place]): Yes Obesity: No Tobacco Use: Current/Recent(w/in 1 year) Prior Interventions PCI: Yes CABG: No Valve Surgery: No Date of PCI: 06/22/2022 Report Signatures Finalized by Amrit Higginbotham MD on 09/06/2022 01:21 PM
[2022-09-02] MEDS: diphenhydrAMINE 50 mg Capsule PO (09:16)
[2022-09-02 09:31] LABS: Basophils # 0.1 10^3/uL (0.0-0.1); Basophils % 1.1 %; Eosinophils # 0.4 10^3/uL (0.0-0.8); Eosinophils % 3.5 %; Hematocrit 37.7 % (42.0-52.0); Hemoglobin 11.7 g/dL (11.7-16.6); Lymphocytes # 1.8 10^3/uL (0.8-4.8); Lymphocytes % 14.6 %; Mean Corpuscular Hemoglobin 30.6 pg (28.0-34.0); Mean Corpuscular Volume 98.7 fl (80-94); Mean Platelet Volume 10.4 fL (7.4-10.4); Monocytes # 2.2 10^3/uL (0.2-0.9); Monocytes % 17.8 %; Neutrophils % 60.2 %; Nucleated Red Blood Cells % 0 %; Platelet Count 273 10^3/cmm (130-400); Red Blood Count 3.82 10^6/uL (4.1-5.3); White Blood Count 12.3 10^3/uL (4.0-10.0)
[2022-09-02 09:34] LABS: Slide Review Slide Review Perform
[2022-09-02 09:46] LABS: Anion Gap 10.7 (5-19); Blood Urea Nitrogen 12 mg/dL (8-23); Calcium 8.8 mg/dL (8.5-10.5); Carbon Dioxide 28 mmol/L (22-29); Chloride 104 mmol/L (98-107); Glucose 84 mg/dL (65-115); Osmolality Calculated 287 mOsm/kg (285-295); Potassium 3.7 mmol/L (3.5-5.1); Sodium 139 mmol/L (136-145)
--- NOTE | 2022-09-02 10:00 | P.HP_ITS ---
Same Day Surgery H&P Indication for Procedure/HPI DATE OF PROCEDURE: September 02, 2022 CHIEF COMPLAINT/INDICATIONFOR SURGICAL PROCEDURE: Staged PCI of RCA/stable angina PREOP DIAGNOSIS: Staged PCI of RCA/stable angina PLANNED PROCEDURE: Operation Date: 09/02/22 10:00 Proposed Procedures p Left Heart Cath I25.10(Left) - Amrit Higginbotham M.D Staged PCI of distal RCA 82-year-old man with past medical history of CAD and Byron's granulomatosis who was recently admitted for NSTEMI and underwent balloon angioplasty of the left circumflex artery and ramus artery has presented for staged PCI of RCA. He had to use occasional nitros during the last 1 month Medications/Allergies* Home Medications Medication Instructions Recorded Confirmed Type albuterol sulfate 2.5 mg/3 mL 2.5 mg inhalation QID PRN 01/19/20 08/29/22 History (0.083 %) solution for nebulization Shortness Of Breath mirtazapine 30 mg tablet 30 mg PO BEDTIME 01/19/20 08/29/22 History nitroglycerin 0.4 mg sublingual 0.4 mg sublingual Q5M PRN Chest 01/19/20 08/29/22 History tablet Pain tamsulosin 0.4 mg capsule 0.8 mg PO QPM 01/19/20 08/29/22 History acetaminophen 500 mg tablet 1,000 mg PO Q4H PRN Pain 06/20/22 08/29/22 History alendronate 70 mg tablet 70 mg PO Q7D 06/20/22 08/29/22 History cholecalciferol (vitamin D3) 125 125 mcg PO DAILY 06/20/22 08/29/22 History mcg (5,000 unit) tablet (Vitamin D3) prednisone 5 mg tablet 5 mg PO QAM 06/20/22 08/29/22 History rituximab 10 mg/mL See Rx Instructions .Route .COMPLEX 06/20/22 08/29/22 History concentrate,intravenous (Rituxan) zinc acetate 50 mg (zinc) capsule 50 mg PO DAILY 06/20/22 08/29/22 History omeprazole 40 mg capsule,delayed 40 mg PO DAILY 08/11/22 08/29/22 History release Allergies/Adverse Reactions Allergy/AdvReac Type Severity Reaction Status Date / Time Penicillins Allergy Unknown Verified 08/11/22 13:07 tramadol AdvReac Intermediate N/V feels Verified 08/11/22 13:07 bad Current Medications: Generic Name Dose Route Start Last Admin Trade Name Regina PRN Reason Stop Dose Admin Sodium Chloride 1,000 mls @ 50 mls/hr 09/02/22 09:00 09/02/22 09:16 Sodium Chloride 0.9% IV 09/03/22 04:59 Not Given .Q20H ONE Pertinent History/Comorbid Conditions* Medical History (Updated 08/11/22 @ 14:30 by Dwayne Rocha MD) Atherosclerosis of coronary artery BPH (benign prostatic hyperplasia) COPD (chronic obstructive pulmonary disease) 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 Esophageal dilatation High risk medication use History of coronary artery disease History of esophageal dilatation Immunosuppression Osteoporosis Unstable angina Byron's granulomatosis with vasculitis Surgical History (Updated 08/11/22 @ 13:34 by Dwayne Rocha MD) History of arthroscopy of right shoulder History of inguinal hernia repair, bilateral History of right hip replacement History of splenectomy Hx of heart artery stent 5 stents Previous back surgery back surg approx 06/07/21 Status post lumbar laminectomy Family History (Updated 08/11/22 @ 13:25 by Destiny Beck LPN) Father, AT AGE 65 Mother, AT AGE 88 CAD (coronary artery disease) CHF (congestive heart failure) Mother Chronic kidney disease (CKD) Renal failure Mother Lung disease Cancer Father LUNG Hypertension Denies family history of Rheumatoid arthritis Diabetes Clotting disorder Dementia Hyperlipidemia Psychiatric illness Systemic lupus erythematosus (SLE) in adult Anesthesia complication Bleeding disorder Stroke Social History Smoking and tobacco status: current every day smoker cigarettes [ Other cigarette details: 1PPD, 130PY 2PPD x 60 +yrs] Alcohol intake: never Desire information about alcohol rehabilitation?: No Lives independently: Yes Marital status: Number of children: 4 Current occupational status: retired History of recent travel: No Pertinent Exam Findings alert, oriented x 3, clear to auscultation bilaterally and regular rate & rhythm Conscious Sedation Assessment PATIENT ASSESSED PRIOR TO SEDATION, WITH NO CHANGE NOTED: Yes AIRWAY EVAL/ANESTHESIA PLAN: normal airway, ASA IV, Local Anesthesia, Risks, be nefits & alternatives of sedation and/or procedure discussed and Patient agrees to continue as planned ADDITIONAL INFORMATION: Moderate sedation Recommendations Surgery/Procedure today (Left heart cath with staged PCI of RCA) Coding Level of Care Code Acute Pathologist Assistant for Flower Stafford
--- NOTE | 2022-09-02 10:45 | SUR.EXTENDED ---
Received the patient back from the vp lab s/p PCI of the RCA cot. Patient alert and oriented x 3. 6fr sheath intact to the left groin to pressure bag. Dressing dry and intact with no bleeding or hematoma noted. IVF infusing at 75 ml/hr to PIV in the right AC. alarm security or surveillance monitor placed and vital signs obtained. No other assessment changes noted from pre cath assessment. Spouse at bedside. Waiting for transfer to floor when bed becomes available.
[2022-09-02] MEDS: clopidogrel 300 mg Tablet PO (11:04)
--- NOTE | 2022-09-02 13:04 | SUR.EXTENDED ---
ACT drawn per MD order. Result was 140. TRBVO given to pull sheath now with 6 hours of bedrest to follow.
--- NOTE | 2022-09-02 13:06 | SUR.EXTENDED ---
Patient eating lunch. Will pull sheath as soon as he is finished.
--- NOTE | 2022-09-02 13:30 | PC.NURSE ---
Successful removal of sheath in left groin. Manual pressure held for 20 mins. No hematoma or brusing noted at site. Pt complains of no pain. Pt has been educated of restrictions during recovery and pt stated understanding. Nurse to continue to educated throughout recovery.
--- NOTE | 2022-09-02 16:08 | PC.NURSE ---
Report called to ALBERTO York. Room assignment 111-1. Patient transferred to room by bed. Left groin site dressing has drainage that is marked. Site is soft without observation of hematoma. Patient denies pain.
[2022-09-02] MEDS: tamsulosin 0.4 mg Capsule 0.8 MG PO (18:42)
--- NOTE | 2022-09-02 18:50 | PC.NURSE ---
2cm hematoma noted on 1829 assessment of site. Pressure applied, sand bag applied
--- NOTE | 2022-09-02 18:52 | PC.NURSE ---
Dr Higginbotham notified no new orders
[2022-09-02] MEDS: mirtazapine 30 mg Tablet PO (20:27)
--- NOTE | 2022-09-02 20:39 | PC.NURSE ---
Patient is s/p [facility] with left groin access. Was informed in report that patient had a 2cm hematoma arise which pressure was held to. Dr Higginbotham was informed. Received instruction to continue to monitor. Patient currently has hematoma resolved.. No additional s/s of bleeding or hematoma formation observed presently. Instructed patient on site care. Patient verbalized complete understanding. Will continue to monitor.
[2022-09-03 03:00] LABS: Basophils # 0.1 10^3/uL (0.0-0.1); Basophils % 0.8 %; Eosinophils # 0.3 10^3/uL (0.0-0.8); Eosinophils % 2.8 %; Hematocrit 34.9 % (42.0-52.0); Hemoglobin 10.9 g/dL (11.7-16.6); Lymphocytes # 1.9 10^3/uL (0.8-4.8); Lymphocytes % 15.9 %; Mean Corpuscular HGB Conc 31.2 g/dL (30.0-36.0); Mean Corpuscular Hemoglobin 30.4 pg (28.0-34.0); Mean Corpuscular Volume 97.5 fl (80-94); Mean Platelet Volume 11.3 fL (7.4-10.4); Monocytes # 2.3 10^3/uL (0.2-0.9); Monocytes % 19.3 %; Neutrophils # 6.96 10^3/uL (1.8-7.7); Neutrophils % 58.8 %; Nucleated Red Blood Cells % 0 %; Platelet Count 265 10^3/cmm (130-400); Red Blood Count 3.58 10^6/uL (4.1-5.3); Red Cell Distribution Width 13.9 % (12.1-15.1); White Blood Count 11.9 10^3/uL (4.0-10.0)
[2022-09-03 03:21] VITALS: BP 131/94; PULSE 76; RESP 21; TEMP 36.8; O2SAT 94
[2022-09-03 05:35] VITALS: PULSE 82
[2022-09-03] MEDS: predniSONE 5 mg Tablet PO (05:54)
[2022-09-03 07:11] VITALS: BP 106/67; PULSE 85; RESP 19; TEMP 36.8; O2SAT 95
--- NOTE | 2022-09-03 07:34 | PM.DCS ---
Discharge Providers Date of Admission: 09/02/22 16:19 Date of Discharge: September 03, 2022 Attending Provider at Admission: Amrit Higginbotham M.D Attending Provider at Discharge: Amrit Higginbotham M.D Primary Care Provider: Dwayne Rocha MD Reason for Visit Reason for Visit: Staged PCI of RCA Brief History: 82-year-old man with past medical history of CAD and Byron's granulomatosis who was recently admitted for NSTEMI and underwent balloon angioplasty of the left circumflex artery and ramus artery has presented for staged PCI of RCA.? He had to use occasional nitros during the last 1 month Hospital Course Hospital Course Patient underwent successful revascularization of RCA with NICHOLAS x 1 of mid RCA and balloon angioplasty of distal RCA. Patient stayed stable overnight and was discharged in a stable condition. Physical Exam Narrative: GENERAL: Patient is alert, awake and oriented x3. [] NECK: No jugular vein distension. [] HEENT: No cyanosis. No icterus. No pallor. [] HEART: Regular S1 and S2. No murmur, rub or gallop. [] LUNGS: Clear to auscultate bilaterally. [] CENTRAL NERVOUS SYSTEM: Grossly nonfocal. [] EXTREMITIES: Lower extremities with no edema bilaterally. Discharge Data Studies Completed and Pending Pending at discharge Category Date Time Status NON DESTRUCTIVE EVALUATION MANAGER request for service Routine Exams 09/02/22 09:00 Ordered Laboratory Results WBC 11.9 10^3/uL (4.0-10.0) H 09/03/22 01:45 RBC 3.58 10^6/uL (4.1-5.3) L 09/03/22 01:45 Hgb 10.9 g/dL (11.7-16.6) L 09/03/22 01:45 Hct 34.9 % (42.0-52.0) L 09/03/22 01:45 MCV 97.5 fl (80-94) H 09/03/22 01:45 MCH 30.4 pg (28.0-34.0) 09/03/22 01:45 MCHC 31.2 g/dL (30.0-36.0) 09/03/22 01:45 RDW 13.9 % (12.1-15.1) 09/03/22 01:45 Plt Count 265 10^3/cmm (130-400) 09/03/22 01:45 MPV 11.3 fL (7.4-10.4) H 09/03/22 01:45 Neut % (Auto) 58.8 % 09/03/22 01:45 Lymph % (Auto) 15.9 % 09/03/22 01:45 Bland % (Auto) 19.3 % 09/03/22 01:45 Eos % (Auto) 2.8 % 09/03/22 01:45 Baso % (Auto) 0.8 % 09/03/22 01:45 Neut # (Auto) 6.96 10^3/uL (1.8-7.7) 09/03/22 01:45 Lymph # (Auto) 1.9 10^3/uL (0.8-4.8) 09/03/22 01:45 Bland # (Auto) 2.3 10^3/uL (0.2-0.9) H 09/03/22 01:45 Eos # (Auto) 0.3 10^3/uL (0.0-0.8) 09/03/22 01:45 Baso # (Auto) 0.1 10^3/uL (0.0-0.1) 09/03/22 01:45 Nucleated RBC % (auto) 0 % 09/03/22 01:45 Nucleated RBCs # 0.0 /100WBC 09/03/22 01:45 Sodium 140 mmol/L (136-145) 09/03/22 01:45 Potassium 4.0 mmol/L (3.5-5.1) 09/03/22 01:45 Chloride 105 mmol/L (98-107) 09/03/22 01:45 Carbon Dioxide 28 mmol/L (22-29) 09/03/22 01:45 Anion Gap 11.0 (5-19) 09/03/22 01:45 BUN 13 mg/dL (8-23) 09/03/22 01:45 Creatinine 0.9 mg/dL (0.7-1.2) 09/03/22 01:45 GFR Calculation Not Reportable 09/03/22 01:45 Glucose 79 mg/dL (65-115) 09/03/22 01:45 Calculated Osmolality 289 mOsm/kg (285-295) 09/03/22 01:45 Calcium 8.2 mg/dL (8.5-10.5) L 09/03/22 01:45 Vitals Last Vital Signs Temp 98.3 F 09/03/22 07:11 Pulse 85 09/03/22 07:11 Resp 19 H 09/03/22 07:11 BP 106/67 09/03/22 07:11 Pulse Ox 95 09/03/22 07:11 O2 Del Method 09/02/22 14:30 Discharge Plan Discharge Patient Disposition: Home Prescriptions: Continued albuterol sulfate 2.5 mg /3 mL (0.083 %) solution for nebulization 2.5 mg INHALATION QID PRN (Reason: Shortness Of Breath) mirtazapine 30 mg tablet 30 mg PO BEDTIME nitroglycerin 0.4 mg tablet, sublingual 0.4 mg SUBLINGUAL Q5M PRN (Reason: Chest Pain) Rx Instructions: do not exceed 3 doses per episode tamsulosin 0.4 mg capsule 0.8 mg PO QPM omeprazole 40 mg capsule,delayed release(DR/EC) 40 mg PO DAILY fluticasone propion-salmeterol [Advair Diskus] 250-50 mcg/dose blister with device 1 inh inhalation BID Qty: 60 4RF alendronate 70 mg tablet 70 mg PO Q7D Rx Instructions: on sundays zinc acetate 50 mg (zinc) Capsule 50 mg PO DAILY prednisone 5 mg tablet 5 mg PO QAM acetaminophen 500 mg Tablet 1,000 mg PO Q4H PRN (Reason: Pain) Rituxan 10 mg/mL Concentrate See Rx Instructions .ROUTE .COMPLEX Rx Instructions: every 6 months (due to get 07/10/22) cholecalciferol (vitamin D3) [Vitamin D3] 125 mcg (5,000 unit) Tablet 125 mcg PO DAILY aspirin 81 mg Tablet,Delayed Release (Dr/Ec) 81 mg PO DAILY Qty: 60 2RF atorvastatin 40 mg Tablet 40 mg PO DAILY Qty: 60 2RF clopidogrel 75 mg Tablet 75 mg PO DAILY Qty: 60 3RF metoprolol succinate [Toprol XL] 25 mg tablet extended release 24 hr 12.5 mg PO DAILY Qty: 90 0RF Discharge Orders: Discharge Order (Routine); Ordered 09/03/22 Ordered By: Amrit Higginbotham Referrals: Amrit Higginbotham M.D [Physician] - 7-10 days (you have an existing appointment with dr higginbotham on 09/15/22 at 12:45) Sofya Andrade FNP [Nurse Practitioner] - () Diet: Cardiac Activity: Increase activity as tolerated Patient Instructions: Coronary Angioplasty (DC), Opioid Safety, Post Angiogram Home Care Instructions Discharge Date/Time: 09/03/22 07:35 Discharge Attestations Time Spent in Discharge Care*: less than 30 min Quality Metrics Clinical Quality Measures [ No reported AMI, CVA or VTE this stay] Coding Level of Care Code Acute Chg FW DC note
[2022-09-03 07:56] VITALS: BP 106/67; PULSE 85; RESP 19; TEMP 36.8; O2SAT 95
[2022-09-03] MEDS: metoprolol succinate ER (24 HR) 25 mg Tablet 12.5 MG PO (08:28)
[2022-09-03] MEDS: aspirin 81 mg EC Tablet PO (08:28)
[2022-09-03] MEDS: clopidogrel 75 mg Tablet PO (08:29)
[2022-09-03] MEDS: atorvastatin 40 mg Tablet PO (08:29)
[2022-09-03] MEDS: cholecalciferol (vitamin D3) 5,000 unit Tablet 5000 UNIT PO (08:30)
--- NOTE | 2022-09-03 08:40 | PC.NURSE ---
discharge instructions given and explained.pt verb understanding of instructions.discharged via w/c to exit.spouse to drive pt home.
== END 2022-09-03 07:35 | disposition home or self-care (01) ==
LOC: CCL 08:58 → CSU 22:34
PROVIDERS: PCP Family Medicine; Visit Provider Internal Medicine
DX: I65.21 Occlusion and stenosis of right carotid artery (principal); I25.110 Atherosclerotic heart disease of native coronary artery with unstable angina pectoris; M31.30 Wegener's granulomatosis without renal involvement; I10 Essential (primary) hypertension; E78.5 Hyperlipidemia, unspecified; N40.0 Benign prostatic hyperplasia without lower urinary tract symptoms; J44.9 Chronic obstructive pulmonary disease, unspecified; Z79.899 Other long term (current) drug therapy; M81.0 Age-related osteoporosis without current pathological fracture; Z95.5 Presence of coronary angioplasty implant and graft; F17.210 Nicotine dependence, cigarettes, uncomplicated
CPT/HCPCS: 36415; 80048; 85025; 85347; 93454; 96361; 96365; 99152; 99153; C1725; C1769; C1874; C1887; C1894; C9600; J1644; J2250; J3010; J3490; J7030; J7512; Q0163; Q9967

== ENCOUNTER → 2022-09-15 12:34 | Outpatient (BNVA) | payer MEDICARE, SELFPAY | PROVIDERS: PCP Family Medicine; Visit Provider Internal Medicine | DX: I25.10 Atherosclerotic heart disease of native coronary artery without angina pectoris (principal); Z95.5 Presence of coronary angioplasty implant and graft; J44.9 Chronic obstructive pulmonary disease, unspecified; F17.210 Nicotine dependence, cigarettes, uncomplicated | CPT/HCPCS: 99214 ==

== ENCOUNTER 2022-09-17 09:51 | Outpatient (CLI) | payer MEDICARE, SELFPAY ==
--- NOTE | 2022-09-17 10:15 | USCV_ITS ---
Arnold Aragon Age: 82 Gender: M : 1940 Exam Date: 09/17/2022 10:00 Ordering Phys: Amrit Higginbotham M.D ([email or web address]) Technologist: QUIRINO Exam Location: [facility] [place]_ Indication: R/O Psuedo Findings Complex fluid collection seen in LT groin without vascularity and no vascular connection. 2.5 x 2.8x 5.7 cm echo-free space in the left groin anterior to the femoral artery. No Doppler flow No Doppler flow signals were noted in the cavity. Conclusions A hypoechoic area measuring 2.5 x 2.8 x 5.7 cm in the left groin, anterior to the femoral artery, suggestive of a hematoma with some signs of organization. No Doppler flow signals in this area to suggest a pseudoaneurysm Dr Kana Holt MD [facility] (Electronically Signed) Final Date: 17 September 2022 20:59 S
== END 2022-09-17 09:52 | disposition home or self-care (01) ==
LOC: RAD 09:52
PROVIDERS: PCP Family Medicine; Visit Provider Internal Medicine
DX: M79.605 Pain in left leg (principal)
CPT/HCPCS: 93926

== ENCOUNTER → 2022-10-20 11:01 | Outpatient (BNVA) | payer MEDICARE, SELFPAY | PROVIDERS: PCP Family Medicine; Visit Provider Internal Medicine Rheumatology | DX: M25.569 Pain in unspecified knee (principal); Z79.899 Other long term (current) drug therapy; M31.30 Wegener's granulomatosis without renal involvement; I77.6 Arteritis, unspecified; M17.11 Unilateral primary osteoarthritis, right knee; Z71.89 Other specified counseling; M81.0 Age-related osteoporosis without current pathological fracture; Z87.310 Personal history of (healed) osteoporosis fracture; Z86.711 Personal history of pulmonary embolism; Z79.01 Long term (current) use of anticoagulants; I25.2 Old myocardial infarction; Z96.641 Presence of right artificial hip joint; Z95.5 Presence of coronary angioplasty implant and graft; J44.9 Chronic obstructive pulmonary disease, unspecified; I25.10 Atherosclerotic heart disease of native coronary artery without angina pectoris; F17.210 Nicotine dependence, cigarettes, uncomplicated; K21.9 Gastro-esophageal reflux disease without esophagitis; I48.20 Chronic atrial fibrillation, unspecified; G47.33 Obstructive sleep apnea (adult) (pediatric); R41.3 Other amnesia; M47.816 Spondylosis without myelopathy or radiculopathy, lumbar region; M41.9 Scoliosis, unspecified | CPT/HCPCS: 73562; 99214 ==

== ENCOUNTER 2023-01-09 11:15 | Outpatient (CLI) | payer MEDICARE, SELFPAY ==
--- NOTE | 2023-01-09 11:15 | FL_ITS ---
WS: [id number] FL barium swallow gastro [id number] REASON FOR EXAM: Sensation of food sticking in the esophagus when eating. FLUOROSCOPY TIME: 2min [id number] # OF SPOT FILMS: Multiple FINDINGS: Patient was examined in the upright and prone DUGAN positions. The swallowing of barium was monitored fluoroscopically and multiple rapid sequence spot films obtain ed. The cervical esophagus appears normal. No aspiration was identified. The thoracic esophagus demonstrated intermittent loss of primary peristalsis with retention of barium . Retained barium cleared with subsequent swallows. Very small hiatal hernia with no significant Schatzki ring or stricture. No gastroesophageal reflux. FL/FL barium swallow gastro [id number] IMPRESSION: Mild intermittent esophageal dysmotility in the thoracic esophagus.
== END 2023-01-09 11:16 | disposition home or self-care (01) ==
PROVIDERS: PCP Family Medicine; Visit Provider Family Medicine
DX: R13.10 Dysphagia, unspecified (principal); K22.4 Dyskinesia of esophagus
CPT/HCPCS: 74220

== ENCOUNTER 2023-01-12 09:01 | Oncology outpatient (recurring) (ONCR) | payer MEDICARE, SELFPAY ==
[2023-01-12 09:35] LABS: Basophils # 0.1 10^3/uL (0.0-0.1); Eosinophils # 0.4 10^3/uL (0.0-0.8); Eosinophils % 3.2 %; Hematocrit 31.9 % (42.0-52.0); Hemoglobin 9.6 g/dL (11.7-16.6); Lymphocytes # 1.4 10^3/uL (0.8-4.8); Lymphocytes % 11.8 %; Mean Corpuscular HGB Conc 30.1 g/dL (30.0-36.0); Mean Corpuscular Hemoglobin 25.6 pg (28.0-34.0); Mean Corpuscular Volume 85.1 fl (80-94); Mean Platelet Volume 10.4 fL (7.4-10.4); Monocytes # 1.5 10^3/uL (0.2-0.9); Monocytes % 13.1 %; Neutrophils # 7.98 10^3/uL (1.8-7.7); Neutrophils % 67.9 %; Nucleated Red Blood Cells % 0 %; Platelet Count 456 10^3/cmm (130-400); Red Blood Count 3.75 10^6/uL (4.1-5.3); Red Cell Distribution Width 18.8 % (12.1-15.1); White Blood Count 11.8 10^3/uL (4.0-10.0)
[2023-01-12 09:50] LABS: Alanine Aminotransferase 10 U/L (0-41); Albumin Level 3.8 g/dL (3.5-5.2); Alkaline Phosphatase 62 U/L (40-130); Aspartate Amino Transferase 18 U/L (0-40); C Reactive Protein 4.8 mg/L (0.0-4.9); Globulin 1.8 g/dL (1.3-4.6); Total Bilirubin 0.2 mg/dL (0.15-1.2); Total Protein 5.6 g/dL (6.6-8.7)
[2023-01-12] MEDS: sodium chloride 0.9% 250 ML 100 ML IV (10:32)
[2023-01-12] MEDS: acetaminophen 325 mg Tablet 650 MG PO (10:34)
[2023-01-12] MEDS: diphenhydrAMINE 50 mg/mL SDV 1mL IVP (10:35)
[2023-01-12 11:00] VITALS: BP 102/58; PULSE 53; TEMP 36.6; O2SAT 94
[2023-01-12 11:30] VITALS: BP 114/55; PULSE 56; TEMP 36.3; O2SAT 93
[2023-01-12 12:00] VITALS: BP 110/58; PULSE 63; TEMP 36.2; O2SAT 95
[2023-01-12 12:30] VITALS: BP 112/60; PULSE 58; TEMP 36.3; O2SAT 92
[2023-01-12 13:34] VITALS: BP 109/56; PULSE 65; TEMP 36.4; O2SAT 91
== END 2023-02-04 23:59 | disposition home or self-care (01) ==
LOC: ONCMED 09:01
PROVIDERS: PCP Family Medicine; Visit Provider Internal Medicine Rheumatology
DX: D50.9 Iron deficiency anemia, unspecified (principal); Z79.899 Other long term (current) drug therapy; M31.30 Wegener's granulomatosis without renal involvement; I77.6 Arteritis, unspecified
CPT/HCPCS: 80076; 82565; 85025; 86140; 96361; 96375; 96413; 96415; J1200; J2920; J7040; J7050; J9312

== ENCOUNTER 2023-01-22 10:56 | Outpatient (CLI) | payer MEDICARE, SELFPAY ==
[2023-01-22 12:03] LABS: Basophils # 0.1 10^3/uL (0.0-0.1); Basophils % 0.8 %; Eosinophils # 0.7 10^3/uL (0.0-0.8); Eosinophils % 4.3 %; Hematocrit 31.5 % (42.0-52.0); Hemoglobin 9.4 g/dL (11.7-16.6); Lymphocytes # 0.8 10^3/uL (0.8-4.8); Lymphocytes % 5.3 %; Mean Corpuscular HGB Conc 29.8 g/dL (30.0-36.0); Mean Corpuscular Hemoglobin 25.5 pg (28.0-34.0); Mean Corpuscular Volume 85.6 fl (80-94); Monocytes # 1.8 10^3/uL (0.2-0.9); Monocytes % 11.5 %; Neutrophils # 11.22 10^3/uL (1.8-7.7); Neutrophils % 71.2 %; Nucleated Red Blood Cells % 0 %; Platelet Count 369 10^3/cmm (130-400); Red Blood Count 3.68 10^6/uL (4.1-5.3); Red Cell Distribution Width 18.7 % (12.1-15.1); White Blood Count 15.8 10^3/uL (4.0-10.0)
[2023-01-22 12:34] LABS: Add RBC Morph Yes; Slide Review Slide Review Perform
[2023-01-22 12:35] LABS: Giant Platelets 1+; Hypochromasia 2+; RBC Morph Comp No
[2023-01-22 12:36] LABS: Acanthocytes 1+; Poikilocytosis 1+; Schistocytes 1+
[2023-01-23 09:32] LABS: Alanine Aminotransferase 10 U/L (0-41); Alkaline Phosphatase 70 U/L (40-130); Aspartate Amino Transferase 18 U/L (0-40); Blood Urea Nitrogen 17 mg/dL (8-23); Calcium 8.4 mg/dL (8.5-10.5); Carbon Dioxide 28 mmol/L (22-29); Chloride 103 mmol/L (98-107); Ferritin 30 ng/mL (30-400); Globulin 1.5 g/dL (1.3-4.6); Glucose 80 mg/dL (65-115); Iron 39 ug/dL (59-158); Lactate Dehydrogenase 351 U/L (135-225); Osmolality Calculated 287 mOsm/kg (285-295); Percent Saturation 12.5 % (20-50); Sodium 138 mmol/L (136-145); Total Bilirubin 0.2 mg/dL (0.15-1.2); Total Iron Binding Capacity 311 mcg/dl; Total Protein 5.5 g/dL (6.6-8.7); Unsaturated Iron Binding 272 ug/dL (112-347)
== END 2023-01-22 10:57 | disposition home or self-care (01) ==
PROVIDERS: PCP Family Medicine; Visit Provider Internal Medicine Rheumatology
DX: Z79.899 Other long term (current) drug therapy (principal); D64.9 Anemia, unspecified; N50.0 Atrophy of testis
CPT/HCPCS: 36415; 80053; 82728; 83540; 83550; 83615; 85025

== ENCOUNTER 2023-03-05 15:00 | Oncology outpatient (recurring) (ONCR) | payer MEDICARE, SELFPAY ==
[2023-02-12 15:20] VITALS: BP 84/45; PULSE 64; RESP 18; TEMP 36.6; O2SAT 98
[2023-02-12] MEDS: sodium chloride 0.9% 250 ML 75 ML IV (15:25)
[2023-02-12] MEDS: iron sucrose 200 MG in sodium chloride 0.9% (100 ml) 100 ML 220 MG IV (15:25)
[2023-02-12 15:55] VITALS: BP 91/64; PULSE 64; RESP 18; TEMP 36.6; O2SAT 98
[2023-02-19] MEDS: iron sucrose 200 MG in sodium chloride 0.9% (100 ml) 100 ML 220 MG IV (16:16)
[2023-02-19 16:55] VITALS: BP 80/50; BP 80/51; PULSE 60; PULSE 74; RESP 18; TEMP 36.6; O2SAT 97
[2023-02-26 15:25] VITALS: BP 90/54; PULSE 77; RESP 18; TEMP 36.6; O2SAT 93
[2023-02-26] MEDS: sodium chloride 0.9% 250 ML 75 ML IV (15:26)
[2023-02-26] MEDS: iron sucrose 200 MG in sodium chloride 0.9% (100 ml) 100 ML 220 MG IV (15:26)
[2023-02-26 16:20] VITALS: BP 101/54; PULSE 84; RESP 18; TEMP 36.6; O2SAT 92
[2023-03-05 15:10] VITALS: BP 92/44; PULSE 68; RESP 18; TEMP 36.6; O2SAT 94
[2023-03-05] MEDS: sodium chloride 0.9% 250 ML 75 ML IV (15:12)
[2023-03-05] MEDS: iron sucrose 200 MG in sodium chloride 0.9% (100 ml) 100 ML 220 MG IV (15:12)
[2023-03-05 15:50] VITALS: BP 95/58; PULSE 77; RESP 18; TEMP 36.8; O2SAT 94
== END 2023-03-06 23:59 | disposition home or self-care (01) ==
PROVIDERS: PCP Family Medicine; Visit Provider Internal Medicine Rheumatology
DX: D64.9 Anemia, unspecified (principal)
CPT/HCPCS: 96365; J1756; J7050

== ENCOUNTER 2023-03-12 14:48 | Oncology outpatient (recurring) (ONCR) | payer MEDICARE, SELFPAY ==
[2023-03-12] MEDS: iron sucrose 200 MG in sodium chloride 0.9% (100 ml) 100 ML 220 MG IV (15:18)
[2023-03-12 15:58] VITALS: BP 96/54; PULSE 76; RESP 18; TEMP 36.7; O2SAT 96
== END 2023-04-06 23:59 | disposition home or self-care (01) ==
PROVIDERS: PCP Family Medicine; Visit Provider Internal Medicine Rheumatology
DX: D64.9 Anemia, unspecified (principal)
CPT/HCPCS: 96365; J1756

== ENCOUNTER → 2023-03-24 11:15 | Outpatient (BNVA) | payer MEDICARE, SELFPAY | PROVIDERS: PCP Family Medicine; Visit Provider Surgery | DX: R13.10 Dysphagia, unspecified (principal); D50.9 Iron deficiency anemia, unspecified; K21.9 Gastro-esophageal reflux disease without esophagitis | CPT/HCPCS: 99203 ==

== ENCOUNTER → 2023-03-25 12:33 | Outpatient (BNVA) | payer MEDICARE, SELFPAY | PROVIDERS: PCP Family Medicine; Visit Provider Family Medicine | DX: R06.02 Shortness of breath (principal); J44.1 Chronic obstructive pulmonary disease with (acute) exacerbation; K92.2 Gastrointestinal hemorrhage, unspecified | CPT/HCPCS: 71046; 82728; 83550; 85025 ==

== ENCOUNTER → 2023-04-20 09:51 | Outpatient (BNVA) | payer MEDICARE, SELFPAY | PROVIDERS: PCP Family Medicine; Visit Provider Internal Medicine Rheumatology | DX: M17.11 Unilateral primary osteoarthritis, right knee (principal); M31.30 Wegener's granulomatosis without renal involvement; I77.6 Arteritis, unspecified; Z79.899 Other long term (current) drug therapy; Z71.89 Other specified counseling; J44.9 Chronic obstructive pulmonary disease, unspecified; F17.210 Nicotine dependence, cigarettes, uncomplicated; M81.0 Age-related osteoporosis without current pathological fracture; Z87.310 Personal history of (healed) osteoporosis fracture; Z96.641 Presence of right artificial hip joint; M47.816 Spondylosis without myelopathy or radiculopathy, lumbar region; M41.9 Scoliosis, unspecified; Z86.73 Personal history of transient ischemic attack (TIA), and cerebral infarction without residual deficits; R41.3 Other amnesia; K21.9 Gastro-esophageal reflux disease without esophagitis; I48.20 Chronic atrial fibrillation, unspecified; I25.10 Atherosclerotic heart disease of native coronary artery without angina pectoris; G47.33 Obstructive sleep apnea (adult) (pediatric) | CPT/HCPCS: 20610; 99214; J1030 ==

== ENCOUNTER → 2023-05-18 15:56 | Outpatient (BNVA) | payer MEDICARE, SELFPAY | PROVIDERS: PCP Family Medicine; Visit Provider Internal Medicine | DX: I25.10 Atherosclerotic heart disease of native coronary artery without angina pectoris (principal); Z95.5 Presence of coronary angioplasty implant and graft; J44.9 Chronic obstructive pulmonary disease, unspecified; F17.210 Nicotine dependence, cigarettes, uncomplicated | CPT/HCPCS: 99214 ==

== ENCOUNTER 2023-06-25 07:30 | Day surgery (SDC) | payer MEDICARE, SELFPAY ==
[2023-06-25 08:01] VITALS: BP 129/78; PULSE 84; RESP 22; TEMP 36.2; O2SAT 93
[2023-06-25 08:02] VITALS: BMI 17.8
--- NOTE | 2023-06-25 08:11 | PM.HP ---
Providers/Chief Complaint Primary Care Provider: Dwayne Rocha MD Chief Complaint: R13.10, D50.9, K21.9 History of Present Illness Arnold Aragon is a 82 year old male Review of Systems General: Reports: 10 or more systems reviewed and unremarkable except in HPI and below Medications/Allergies Home Medications Medication Instructions Recorded Confirmed Last Taken Type nitroglycerin 0.4 mg sublingual 0.4 mg sublingual Q5M PRN Chest 01/19/20 06/25/23 1 Year Ago History tablet Pain ~06/25/22 cholecalciferol (vitamin D3) 125 125 mcg PO DAILY 06/20/22 06/25/23 06/22/23 History mcg (5,000 unit) tablet (Vitamin D3) rituximab 10 mg/mL See Rx Instructions .Route .COMPLEX 06/20/22 06/23/23 02/07/23 History concentrate,intravenous (Rituxan) zinc acetate 50 mg (zinc) capsule 50 mg PO DAILY 06/20/22 06/25/23 06/22/23 History aspirin 81 mg tablet,delayed 81 mg PO DAILY #60 tabs 06/22/22 06/23/23 06/22/23 Rx release cyclobenzaprine 5 mg tablet 10 mg PO TID PRN muscle spasm #30 09/29/22 06/25/23 2 Months Ago Rx tabs ~04/25/23 vitamin B complex (B 1 tab PO DAILY 10/14/22 06/25/23 06/21/23 History Complex-Vitamin B12 tablet) metoprolol succinate 25 mg 12.5 mg PO DAILY #90 tabs 10/16/22 06/25/23 06/21/23 Rx tablet,extended release 24 hr (Toprol XL) tamsulosin 0.4 mg capsule 0.8 mg PO QPM #60 caps 10/27/22 06/23/23 06/24/23 Rx clopidogrel 75 mg tablet 75 mg PO DAILY #90 tabs 12/11/22 06/23/23 06/21/23 Rx albuterol sulfate 2.5 mg/3 mL 2.5 mg (3 mL) inhalation QID PRN 12/19/22 06/23/23 06/23/23 Rx (0.083 %) solution for nebulization Shortness Of Breath #90 mL fluticasone 250 mcg-salmeterol 50 1 inh inhalation BID #60 ea 12/19/22 06/23/23 06/24/23 Rx mcg/dose blistr powdr for inhalation (Advair Diskus) mirtazapine 30 mg tablet 30 mg PO BEDTIME #90 tabs 12/19/22 06/23/23 06/24/23 Rx OTC leg cramp PO 03/25/23 05/18/23 06/22/23 History atorvastatin 40 mg tablet 40 mg PO DAILY #60 tabs 03/26/23 06/25/23 06/22/23 Rx alendronate 70 mg tablet 70 mg PO Q7D #12 tabs 04/20/23 06/25/23 06/21/23 Rx pantoprazole 40 mg tablet,delayed 40 mg PO DAILY #90 tabs 05/04/23 06/23/23 06/21/23 Rx release (Protonix) prednisone 5 mg tablet 5 mg PO DAILY 06/23/23 06/23/23 06/21/23 History fluticasone propionate 50 See Rx Instructions .Route 06/24/23 06/25/23 06/21/23 Rx mcg/actuation nasal .COMPLEX #48 mL spray,suspension Allergies Allergy/AdvReac Type Severity Reaction Status Date / Time Penicillins Allergy Unknown Verified 06/25/23 07:58 tramadol AdvReac Intermediate N/V feels Verified 06/25/23 07:58 bad PFSH Acute PFSH: Medical History Atherosclerosis of coronary artery BPH (benign prostatic hyperplasia) COPD (chronic obstructive pulmonary disease) 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 Esophageal dilatation High risk medication use History of coronary artery disease History of esophageal dilatation Immunosuppression Osteoarthritis of right knee Osteoporosis Unstable angina Byron's granulomatosis with vasculitis Surgical History History of arthroscopy of right shoulder History of inguinal hernia repair, bilateral History of right hip replacement History of splenectomy Hx of heart artery stent 5 stents Previous back surgery back surg approx 06/07/21 Status post lumbar laminectomy Family History Mother , AT AGE 88 Renal failure CHF (congestive heart failure) Father , AT AGE 65 Cancer LUNG Other CAD (coronary artery disease) Chronic kidney disease (CKD) Hypertension Lung disease Denies family history of Rheumatoid arthritis Diabetes Clotting disorder Dementia Hyperlipidemia Psychiatric illness Systemic lupus erythematosus (SLE) in adult Anesthesia complication Bleeding disorder Stroke Social History Smoking and tobacco/nicotine status: current every day tobacco/nicotine user cigarettes [ Other cigarette details: 1PPD, 130PY 2PPD x 60 +yrs] Alcohol intake: never Substance/Drug Use: never Lives independently: Yes Marital status: Number of children: 4 Current occupational status: retired Vitals/I&O/Wt Last Vital Signs Temp 97.2 F L 06/25/23 08:01 Pulse 84 06/25/23 08:01 Resp 22 H 06/25/23 08:01 BP 129/78 06/25/23 08:01 Pulse Ox 93 06/25/23 08:01 O2 Del Method Room Air 06/25/23 08:01 Weight last 48 hrs Weight 104 lb A&P Assessment and plan (1) Upper GI bleed: (2) GERD (gastroesophageal reflux disease): (3) Dysphagia: Plan EGD with possible balloon dilation The risks and benefits of the procedure, including bleeding, infection, intestinal perforation requiring surgery, missed lesion were explained to the patient. The patient is understanding of the risks and wishes to proceed. The patient's originally told me that he had a heart attack in January. After further investigation we found this information to be untrue. We have been in communication with his primary care physician. We will proceed with the procedure Attestations Medical Necessity Statement*: Home Coding Level of Care Code Acute Code for Chg Fwd Diagnoses Upper GI bleed K92.2 GERD (gastroesophageal reflux disease) K21.9 Dysphagia R13.10
[2023-06-25] MEDS: sodium chloride 0.9% 1,000 ML 30 ML IV (08:12)
[2023-06-25] MEDS: ipratropium-albuterol 3 mL Neb INHALATION (08:16)
[2023-06-25 08:18] VITALS: PULSE 67; RESP 18; O2SAT 96
--- NOTE | 2023-06-25 08:22 | ANES.PREANE2 ---
Pre-Anesthetic Assessment Height/Weight: Height 1.63 m Weight 47.174 kg Temp Pulse Resp BP Pulse Ox O2 Del Method 97.2 F L 84 22 H 129/78 93 Room Air 06/25/23 08:01 06/25/23 08:01 06/25/23 08:01 06/25/23 08:01 06/25/23 08:01 06/25/23 08:01 Preop Diagnosis: dysphagia, anemia Operation Date: 06/25/23 08:15 Proposed Procedures p 34505 EGD w/Balloon Dial/59624 Colonoscopy R13.10, D50.9,K21.9(Not Applicable) - Praneeth Solitario DO s Colonoscopy(Not Applicable) - Praneeth Solitario DO Familial anesthetic complications: awareness with previous scope Was Beta Harmony taken within 24 hours: Yes Was Clonidine taken within 24 hours: N/A Last intake: Intake Last Liquid Date 06/24/23 Last Liquid Time 22:00 Last Solid Date 06/23/23 Last Solid Time 18:00 Social Tobacco and No alcohol 0.5 pack(s) per day 70 pack years Exam alert, oriented x 3, clear to auscultation bilaterally and regular rate & rhythm Airway Submandibular: within normal limits Cervical ROM: within normal limits Mallampati: Class II Dentition: other (2 still available but several broken or removed. very poor dentition) History/ROS Other Pulmonary Chronic Obstructive Pulmonary Disease and Shortness of Breath wegeners wears 2 L at home when needed. CV/HEM Coronary Artery Disease, Hypertension, Myocardial Infarction (2020 5 stents) and Peripheral Vascular Disease None reported Hepatic None reported GI Gastroesophageal Reflux Disease (uncontrolled feels fine today) Metabolic Hyperlipidemia Musc/skel Lower Back Pain, Osteoarthritis/DJD, Scoliosis and Weakness Neuropsych Anxiety and Transient Ischemic Attack ( 10-15 years ago ) Anesthetic Plan ASA status: 3 Anesthesia: MAC Risk of > 500 ml blood loss (7ml/kg in children): No Medications/Allergies Home Medications Medication Instructions Recorded Confirmed Last Taken Type nitroglycerin 0.4 mg sublingual 0.4 mg sublingual Q5M PRN Chest 01/19/20 06/25/23 1 Year Ago History tablet Pain ~06/25/22 cholecalciferol (vitamin D3) 125 125 mcg PO DAILY 06/20/22 06/25/23 06/22/23 History mcg (5,000 unit) tablet (Vitamin D3) rituximab 10 mg/mL See Rx Instructions .Route .COMPLEX 06/20/22 06/23/23 02/07/23 History concentrate,intravenous (Rituxan) zinc acetate 50 mg (zinc) capsule 50 mg PO DAILY 06/20/22 06/25/23 06/22/23 History aspirin 81 mg tablet,delayed 81 mg PO DAILY #60 tabs 06/22/22 06/23/23 06/22/23 Rx release cyclobenzaprine 5 mg tablet 10 mg PO TID PRN muscle spasm #30 09/29/22 06/25/23 2 Months Ago Rx tabs ~04/25/23 vitamin B complex (B 1 tab PO DAILY 10/14/22 06/25/23 06/21/23 History Complex-Vitamin B12 tablet) metoprolol succinate 25 mg 12.5 mg PO DAILY #90 tabs 10/16/22 06/25/23 06/21/23 Rx tablet,extended release 24 hr (Toprol XL) tamsulosin 0.4 mg capsule 0.8 mg PO QPM #60 caps 10/27/22 06/23/23 06/24/23 Rx clopidogrel 75 mg tablet 75 mg PO DAILY #90 tabs 12/11/22 06/23/23 06/21/23 Rx albuterol sulfate 2.5 mg/3 mL 2.5 mg (3 mL) inhalation QID PRN 12/19/22 06/23/23 06/23/23 Rx (0.083 %) solution for nebulization Shortness Of Breath #90 mL fluticasone 250 mcg-salmeterol 50 1 inh inhalation BID #60 ea 12/19/22 06/23/23 06/24/23 Rx mcg/dose blistr powdr for inhalation (Advair Diskus) mirtazapine 30 mg tablet 30 mg PO BEDTIME #90 tabs 12/19/22 06/23/23 06/24/23 Rx OTC leg cramp PO 03/25/23 05/18/23 06/22/23 History atorvastatin 40 mg tablet 40 mg PO DAILY #60 tabs 03/26/23 06/25/23 06/22/23 Rx alendronate 70 mg tablet 70 mg PO Q7D #12 tabs 04/20/23 06/25/23 06/21/23 Rx pantoprazole 40 mg tablet,delayed 40 mg PO DAILY #90 tabs 05/04/23 06/23/23 06/21/23 Rx release (Protonix) prednisone 5 mg tablet 5 mg PO DAILY 06/23/23 06/23/23 06/21/23 History fluticasone propionate 50 See Rx Instructions .Route 06/24/23 06/25/23 06/21/23 Rx mcg/actuation nasal .COMPLEX #48 mL spray,suspension Allergies Allergy/AdvReac Type Severity Reaction Status Date / Time Penicillins Allergy Unknown Verified 06/25/23 07:58 tramadol AdvReac Intermediate N/V feels Verified 06/25/23 07:58 bad Current Medications Generic Name Dose Route Start Last Admin Trade Name Freq PRN Reason Stop Dose Admin Sodium Chloride 1,000 mls @ 30 mls/hr 06/25/23 07:45 06/25/23 08:12 Sodium Chloride 0.9% IV 06/26/23 07:44 30 mls/hr .Q24H JESUS Administration PFSH Anesthesia Medical History Atherosclerosis of coronary artery BPH (benign prostatic hyperplasia) COPD (chronic obstructive pulmonary disease) 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 Esophageal dilatation High risk medication use History of coronary artery disease History of esophageal dilatation Immunosuppression Osteoarthritis of right knee Osteoporosis Unstable angina Byron's granulomatosis with vasculitis Surgical History History of arthroscopy of right shoulder History of inguinal hernia repair, bilateral History of right hip replacement History of splenectomy Hx of heart artery stent 5 stents Previous back surgery back surg approx 06/07/21 Status post lumbar laminectomy Family History Mother , AT AGE 88 Renal failure CHF (congestive heart failure) Father , AT AGE 65 Cancer LUNG Other CAD (coronary artery disease) Chronic kidney disease (CKD) Hypertension Lung disease Denies family history of Rheumatoid arthritis Diabetes Clotting disorder Dementia Hyperlipidemia Psychiatric illness Systemic lupus erythematosus (SLE) in adult Anesthesia complication Bleeding disorder Stroke Social History Smoking and tobacco/nicotine status: current every day tobacco/nicotine user cigarettes [ Other cigarette details: 1PPD, 130PY 2PPD x 60 +yrs] Alcohol intake: never Substance/Drug Use: never Lives independently: Yes Marital status: Number of children: 4 Current occupational status: retired Data Anesthesia Cardiac Studies: Echocardiogram 06/20/22
[2023-06-25 08:53] VITALS: BP 90/51; PULSE 68; RESP 18; TEMP 36.1; O2SAT 99
[2023-06-25 09:15] VITALS: BP 100/61; PULSE 71; RESP 16; O2SAT 94
--- NOTE | 2023-06-25 09:35 | ANE.PACU2 ---
Inpatient post-anesthesia follow up: Airway intact: Yes Vital signs: Temperature 97.0 F Pulse Rate 71 Respiratory Rate 16 Blood Pressure 100/61 Pulse Oximetry 94 Oxygen Delivery Me thod Room Air Oxygen Flow Rate Fraction of Inspir ed Oxygen Hydration adequate: Yes Nausea and vomiting: No Pain level: 1 Mental status: Baseline
== END 2023-06-25 09:38 | disposition home or self-care (01) ==
PROVIDERS: PCP Family Medicine; Visit Provider Surgery
PROC: 0DJD8ZZ Inspection of Lower Intestinal Tract, Via Natural or Artificial Opening Endoscopic (ICD-10-PCS; CPT 45330; 2023-06-25 08:15)
DX: R13.10 Dysphagia, unspecified (principal); D50.9 Iron deficiency anemia, unspecified; K21.9 Gastro-esophageal reflux disease without esophagitis; K22.2 Esophageal obstruction; J44.9 Chronic obstructive pulmonary disease, unspecified; Z99.81 Dependence on supplemental oxygen; F17.210 Nicotine dependence, cigarettes, uncomplicated; I25.10 Atherosclerotic heart disease of native coronary artery without angina pectoris; I10 Essential (primary) hypertension; I25.2 Old myocardial infarction; E78.5 Hyperlipidemia, unspecified; Z86.73 Personal history of transient ischemic attack (TIA), and cerebral infarction without residual deficits; N40.0 Benign prostatic hyperplasia without lower urinary tract symptoms
CPT/HCPCS: 43239; 43249; 45330; 88305; 94640; J2704; J7030

== ENCOUNTER → 2023-07-08 13:03 | Outpatient (BNVA) | payer MEDICARE, SELFPAY | PROVIDERS: PCP Family Medicine; Visit Provider Surgery | DX: Z09 Encounter for follow-up examination after completed treatment for conditions other than malignant neoplasm (principal) | CPT/HCPCS: 99212 ==

== ENCOUNTER → 2023-10-28 12:14 | Outpatient (BNVA) | payer OTHER, SELFPAY | PROVIDERS: PCP Family Medicine; Visit Provider Family Medicine | DX: D50.9 Iron deficiency anemia, unspecified (principal) | CPT/HCPCS: 80053; 82728; 83550; 85025 ==

== ENCOUNTER → 2023-11-17 14:31 | Outpatient (BNVA) | payer OTHER, SELFPAY | PROVIDERS: PCP Family Medicine; Visit Provider Internal Medicine | DX: I25.10 Atherosclerotic heart disease of native coronary artery without angina pectoris (principal); Z95.5 Presence of coronary angioplasty implant and graft; J44.9 Chronic obstructive pulmonary disease, unspecified; F17.210 Nicotine dependence, cigarettes, uncomplicated | CPT/HCPCS: 99214 ==

== ENCOUNTER → 2024-01-20 10:55 | Outpatient (BNVA) | payer OTHER, SELFPAY | PROVIDERS: PCP Family Medicine; Visit Provider Internal Medicine Rheumatology | DX: M31.30 Wegener's granulomatosis without renal involvement (principal); I77.6 Arteritis, unspecified; Z79.899 Other long term (current) drug therapy; Z71.89 Other specified counseling; M17.11 Unilateral primary osteoarthritis, right knee | CPT/HCPCS: 99214 ==

== ENCOUNTER 2024-02-10 08:45 | Oncology outpatient (recurring) (ONCR) | payer OTHER, SELFPAY ==
[2024-02-10] MEDS: sodium chloride 0.9% 250 ML 25 ML IV (10:31)
[2024-02-10] MEDS: acetaminophen 325 mg Tablet 650 MG PO (10:31)
[2024-02-10 10:32] LABS: Basophils # 0.1 10^3/uL (0.0-0.1); Eosinophils # 0.3 10^3/uL (0.0-0.8); Eosinophils % 2.5 %; Hematocrit 37.7 % (37-53); Lymphocytes % 8.3 %; Mean Corpuscular HGB Conc 31.3 g/dL (30-55); Mean Corpuscular Hemoglobin 28.4 pg (27-33); Mean Corpuscular Volume 90.6 fl (82-101); Mean Platelet Volume 10.6 fL (7.4-10.4); Monocytes # 0.9 10^3/uL (0.2-0.9); Monocytes % 7.8 %; Neutrophils # 9.41 10^3/uL (1.8-7.7); Neutrophils % 80.1 %; Nucleated Red Blood Cells % 0 %; Platelet Count 316 10^3/cmm (157-399); Red Blood Count 4.16 10^6/uL (3.85-5.65); Red Cell Distribution Width 16.8 % (12.1-15.1); White Blood Count 11.77 10^3/uL (3.29-11.43)
[2024-02-10] MEDS: diphenhydrAMINE 50 mg/mL SDV 1mL IVP (10:32)
[2024-02-10] MEDS: methylPREDNISolone sod succ 125 mg/2 mL INJ 80 MG IVP (10:34)
[2024-02-10 10:50] VITALS: BP 134/71; PULSE 54; RESP 18; TEMP 36; O2SAT 95
[2024-02-10 10:50] LABS: Alanine Aminotransferase 9 U/L (0-41); Albumin Level 3.8 g/dL (3.5-5.2); Alkaline Phosphatase 72 U/L (40-130); Aspartate Amino Transferase 14 U/L (0-40); C Reactive Protein 3.4 mg/L (0.0-4.9); Globulin 2.2 g/dL (1.3-4.6); Total Bilirubin 0.2 mg/dL (0.15-1.2)
[2024-02-10 11:20] VITALS: BP 129/67; PULSE 53; RESP 16; TEMP 36.1; O2SAT 92
[2024-02-10 11:50] VITALS: BP 153/74; PULSE 62; RESP 16; TEMP 35.7; O2SAT 94
[2024-02-10 12:20] VITALS: BP 146/71; PULSE 65; RESP 16; TEMP 36.2; O2SAT 95
[2024-02-10 13:15] VITALS: BP 130/63; PULSE 57; RESP 16; TEMP 35.7; O2SAT 92
== END 2024-03-06 23:59 | disposition home or self-care (01) ==
PROVIDERS: PCP Family Medicine; Visit Provider Internal Medicine Rheumatology
DX: I77.6 Arteritis, unspecified (principal); M31.30 Wegener's granulomatosis without renal involvement
CPT/HCPCS: 80076; 82565; 85025; 86140; 96375; 96413; 96415; J1200; J2919; J7040; J7050; J9312

== ENCOUNTER → 2024-06-09 07:54 | Outpatient (BNVA) | payer OTHER, MEDICARE, SELFPAY | PROVIDERS: PCP Family Medicine; Visit Provider Physician Assistant | DX: M25.561 Pain in right knee (principal); M17.11 Unilateral primary osteoarthritis, right knee | CPT/HCPCS: 73560; 73565 ==

== ENCOUNTER 2024-06-09 09:32 | Outpatient (CLI) | payer OTHER, MEDICARE, SELFPAY | END 2024-06-09 09:33 | disposition home or self-care (01) | LOC: SPT 09:32 | PROVIDERS: PCP Family Medicine; Visit Provider Physician Assistant | DX: Z46.89 Encounter for fitting and adjustment of other specified devices (principal); M17.11 Unilateral primary osteoarthritis, right knee | CPT/HCPCS: 20610; 97760; J3301; L1851 ==

== ENCOUNTER → 2024-06-16 12:53 | Outpatient (BNVA) | payer MEDICARE, OTHER, SELFPAY | PROVIDERS: PCP Family Medicine; Visit Provider Surgery | DX: K21.9 Gastro-esophageal reflux disease without esophagitis (principal); K22.2 Esophageal obstruction; R13.10 Dysphagia, unspecified | CPT/HCPCS: 99214 ==

== ENCOUNTER 2024-06-22 09:03 | Day surgery (SDC) | payer OTHER, SELFPAY ==
[2024-06-22 09:21] VITALS: BP 124/72; PULSE 64; RESP 20; TEMP 36.3; O2SAT 95; BMI 18.4
[2024-06-22] MEDS: sodium chloride 0.9% 1,000 ML 30 ML IV (09:30)
--- NOTE | 2024-06-22 10:04 | P.ANESASSM_ITS ---
Pre-Anesthetic Assessment Height/Weight: Height 5 ft 7 in Weight 118 lb Temp Pulse Resp BP Pulse Ox O2 Del Method 97.3 F L 64 20 H 124/72 95 Room Air 06/22/24 09:21 06/22/24 09:21 06/22/24 09:21 06/22/24 09:21 06/22/24 09:21 06/22/24 09:21 Preop Diagnosis: Esophageal stenosis Operation Date: 06/22/24 10:00 Proposed Procedures p EGD Dilation - 24670, r13.10(Not Applicable) - Parneeth Solitario, DO Was Beta Harmony taken within 24 hours: Yes Was Clonidine taken within 24 hours: N/A Last intake: Intake Last Liquid Date 06/21/24 Last Liquid Time 20:30 Last Solid Date 06/21/24 Last Solid Time 17:30 Social Tobacco and No alcohol Exam alert, oriented x 3 and regular rate & rhythm Mild wheezing noted on auscultation, plan for preop DuoNeb Airway Submandibular: within normal limits Cervical ROM: within normal limits Mallampati: Class III Dentition: other (Only 2 bottom teeth, denies any loose) Anesthetic Plan ASA status: 3 Anesthesia: MAC Other: Patient states that he woke up during a previous EGD years ago NPO since yesterday Current smoker, COPD controlled with inhalers CAD with 5 stents. On chronic Plavix. Held since Thursday GERD on Protonix Wheezing noted on auscultation, plan for preop DuoNeb Only 2 bottom teeth, denies any loose. Plan for MAC anesthetic Medications/Allergies Home Medications Medication Instructions Recorded Confirmed Last Taken Type nitroglycerin 0.4 mg sublingual 0.4 mg sublingual Q5M PRN Chest 01/19/20 06/22/24 1 Year Ago History tablet Pain ~06/25/22 cholecalciferol (vitamin D3) 125 125 mcg PO DAILY 06/20/22 06/22/24 06/20/24 History mcg (5,000 unit) tablet (Vitamin D3) rituximab 10 mg/mL See Rx Instructions .Route .COMPLEX 06/20/22 06/22/24 12/09/23 History concentrate,intravenous (Rituxan) zinc acetate 50 mg (zinc) capsule 50 mg PO DAILY 06/20/22 06/22/24 06/21/24 History aspirin 81 mg tablet,delayed 81 mg PO DAILY #60 tabs 06/22/22 06/22/24 06/19/24 Rx release vitamin B complex (B 1 tab PO DAILY 10/14/22 06/22/24 06/21/24 History Complex-Vitamin B12 tablet) albuterol sulfate 2.5 mg/3 mL 2.5 mg (3 mL) inhalation QID PRN 12/19/22 06/22/24 3 Weeks Ago Rx (0.083 %) solution for nebulization Shortness Of Breath #90 mL ~06/01/24 fluticasone 250 mcg-salmeterol 50 1 inh inhalation BID #60 ea 12/19/22 06/22/24 06/20/24 Rx mcg/dose blistr powdr for inhalation (Advair Diskus) diclofenac sodium 1 % topical gel 4 g topical QID #100 grams 07/03/23 06/22/24 06/20/24 Rx (Voltaren Arthritis Pain) guaifenesin 1,200 mg tablet, 1,200 mg PO BID #14 tabs 10/13/23 06/22/24 06/21/24 Rx extended release 12 hr (Mucinex) atorvastatin 40 mg tablet 40 mg PO DAILY #90 tabs 11/21/23 06/22/24 06/21/24 Rx metoprolol succinate 25 mg 12.5 mg (1/2 x 25 mg) PO DAILY #90 12/11/23 06/22/24 06/21/24 Rx tablet,extended release 24 hr tabs (Toprol XL) ipratropium bromide 0.02 % 2.5 ml inhalation Q6H PRN 12/15/23 06/22/24 Unknown Rx solution for inhalation shortness of breath or wheezing #150 mL tamsulosin 0.4 mg capsule 0.8 mg (2 x 0.4 mg) PO QPM #180 12/16/23 06/22/24 06/21/24 Rx caps prednisone 5 mg tablet 5 mg PO DAILY #90 tabs 01/20/24 06/22/24 06/21/24 Rx tramadol 50 mg tablet 50 mg PO TID PRN take for severe 01/20/24 06/22/24 06/21/24 Rx pain PRN #60 tabs 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 100 mcg-umeclid 1 inh inhalation DAILY 06/21/24 06/22/24 Unknown History 62.5 mcg-vilant 25 mcg inhalat.powder (Trelegy Ellipta) fluticasone propionate 50 2 spray intranasal DAILY 06/21/24 06/22/24 06/22/24 History mcg/actuation nasal spray,suspension Allergies Allergy/AdvReac Type Severity Reaction Status Date / Time Penicillins Allergy Unknown Verified 06/21/24 08:34 tramadol AdvReac Intermediate N/V feels Verified 06/21/24 08:34 bad Current Medications Generic Name Dose Route Start Last Admin Trade Name Freq PRN Reason Stop Dose Admin Sodium Chloride 1,000 mls @ 30 mls/hr 06/22/24 09:15 06/22/24 09:30 Sodium Chloride 0.9% IV 06/23/24 09:14 30 mls/hr .Q24H JESUS Administration PFSH Anesthesia Medical History Tobacco use disorder Schatzki's ring Upper GI bleed Osteoarthritis of right knee BPH (benign prostatic hyperplasia) Esophageal dilatation Atherosclerosis of coronary artery History of coronary artery disease Unstable angina High risk medication use Degenerative joint disease (DJD) of lumbar spine History of esophageal dilatation Degenerative lumbar spinal stenosis Osteoporosis COPD (chronic obstructive pulmonary disease) Immunosuppression Byron's granulomatosis with vasculitis Surgical History Previous back surgery back surg approx 06/07/21 Status post lumbar laminectomy Hx of heart artery stent 5 stents History of inguinal hernia repair, bilateral History of arthroscopy of right shoulder History of splenectomy History of right hip replacement Family History Mother , AT AGE 88 Renal failure Congestive heart failure (CHF) Father , AT AGE 65 Cancer LUNG Other CAD (coronary artery disease) Chronic kidney disease (CKD) Hypertension Lung disease Denies family history of Rheumatoid arthritis Diabetes Clotting disorder Dementia Hyperlipidemia Psychiatric illness Systemic lupus erythematosus (SLE) in adult Anesthesia complication Bleeding disorder Stroke Social History Smoking and tobacco/nicotine status: current every day tobacco/nicotine user cigarettes [ Other cigarette details: 1PPD, 130PY 2PPD x 60 +yrs] Alcohol intake: never Substance/Drug Use: never Lives independently: Yes Marital status: Number of children: 4 Current occupational status: retired Data Anesthesia Cardiac Studies: Echocardiogram 06/20/22
[2024-06-22] MEDS: ipratropium-albuterol 3 mL Neb INHALATION (10:07)
[2024-06-22 10:09] VITALS: PULSE 59; RESP 18; O2SAT 93
--- NOTE | 2024-06-22 10:24 | W.PM.OPSUD ---
Surgery/Procedure H&P Update DATE OF PROCEDURE: June 22, 2024 DATE H&P PERFORMED: 06/16/24 H&P UPDATE INFORMATION: I have reviewed H&P completed within last 30 days, I have examined patient prior to procedure and No changes to prior documentation PREOP DIAGNOSIS: Esophageal stenosis PLANNED PROCEDURE: Operation Date: 06/22/24 10:00 Proposed Procedures p EGD Dilation - 65245, r13.10(Not Applicable) - Praneeth Solitario DO
[2024-06-22 10:40] VITALS: BP 123/68; PULSE 58; RESP 12; TEMP 36.1; O2SAT 94
[2024-06-22 10:55] VITALS: BP 104/66; PULSE 61; RESP 16; O2SAT 93
--- NOTE | 2024-06-22 11:19 | ANE.PACU2 ---
Inpatient post-anesthesia follow up: Airway intact: Yes Vital signs: Temperature 97 F Pulse Rate 61 Respiratory Rate 16 Blood Pressure 104/66 Pulse Oximetry 93 Oxygen Delivery Me thod Room Air Oxygen Flow Rate 3 Fraction of Inspir ed Oxygen Hydration adequate: Yes Nausea and vomiting: No Pain level: 1
== END 2024-06-22 11:19 | disposition home or self-care (01) ==
PROVIDERS: PCP Family Medicine; Visit Provider Surgery
DX: K22.2 Esophageal obstruction (principal); K21.00 Gastro-esophageal reflux disease with esophagitis, without bleeding; K29.70 Gastritis, unspecified, without bleeding; J44.9 Chronic obstructive pulmonary disease, unspecified; I25.10 Atherosclerotic heart disease of native coronary artery without angina pectoris; Z95.5 Presence of coronary angioplasty implant and graft; Z79.02 Long term (current) use of antithrombotics/antiplatelets; K21.9 Gastro-esophageal reflux disease without esophagitis; M81.0 Age-related osteoporosis without current pathological fracture; F17.210 Nicotine dependence, cigarettes, uncomplicated
CPT/HCPCS: 43239; 43249; 88305; 94640; J2704; J7030

== ENCOUNTER 2024-07-06 11:22 | Day surgery (SDC) | payer OTHER, SELFPAY ==
[2024-07-06 11:52] VITALS: BP 114/67; PULSE 76; RESP 16; TEMP 36.5; O2SAT 94; BMI 18.4
[2024-07-06] MEDS: sodium chloride 0.9% 1,000 ML 30 ML IV (12:01)
--- NOTE | 2024-07-06 12:18 | P.ANESASSM_ITS ---
Pre-Anesthetic Assessment Height/Weight: Height 5 ft 7 in Weight 118 lb Temp Pulse Resp BP Pulse Ox O2 Del Method 97.7 F 76 16 114/67 94 Room Air 07/06/24 11:52 07/06/24 11:52 07/06/24 11:52 07/06/24 11:52 07/06/24 11:52 07/06/24 11:52 Preop Diagnosis: Esophageal stenosis Operation Date: 07/06/24 12:30 Proposed Procedures p EGD Dilation W/ Balloon 81383, R13.10(Not Applicable) - Praneeth Solitario, DO Was Beta Harmony taken within 24 hours: N/A Was Clonidine taken within 24 hours: N/A Last intake: Intake Last Liquid Date 07/05/24 Last Liquid Time 22:00 Last Solid Date 07/05/24 Last Solid Time 18:00 Social Tobacco and No alcohol Exam alert, oriented x 3 and regular rate & rhythm Rhonchi noted on exam Airway Submandibular: within normal limits Cervical ROM: within normal limits Mallampati: Class III Comments: Comments: Only 2 bottom teeth, denies any loose Anesthetic Plan ASA status: 3 Anesthesia: MAC Other: Patient states that he woke up during a previous EGD years ago NPO since yesterday Current smoker, COPD controlled with inhalers CAD with 5 stents. On chronic Plavix. Held since Thursday GERD on Protonix Wheezing noted on auscultation, plan for preop DuoNeb Only 2 bottom teeth, denies any loose. Plan for MAC anesthetic Medications/Allergies Home Medications Medication Instructions Recorded Confirmed Last Taken Type nitroglycerin 0.4 mg sublingual 0.4 mg sublingual Q5M PRN Chest 01/19/20 07/06/24 1 Year Ago History tablet Pain ~06/25/22 cholecalciferol (vitamin D3) 125 125 mcg PO DAILY 06/20/22 07/06/24 07/05/24 History mcg (5,000 unit) tablet (Vitamin D3) rituximab 10 mg/mL See Rx Instructions .Route .COMPLEX 06/20/22 07/06/24 12/09/23 History concentrate,intravenous (Rituxan) zinc acetate 50 mg (zinc) capsule 50 mg PO DAILY 06/20/22 07/06/24 07/05/24 History aspirin 81 mg tablet,delayed 81 mg PO DAILY #60 tabs 06/22/22 07/06/2424 Rx release vitamin B complex (B 1 tab PO DAILY 10/14/22 07/06/24 07/05/24 History Complex-Vitamin B12 tablet) albuterol sulfate 2.5 mg/3 mL 2.5 mg (3 mL) inhalation QID PRN 12/19/22 07/06/24 07/03/24 Rx (0.083 %) solution for nebulization Shortness Of Breath #90 mL fluticasone 250 mcg-salmeterol 50 1 inh inhalation BID #60 ea 12/19/22 07/06/24 07/05/24 Rx mcg/dose blistr powdr for inhalation (Advair Diskus) diclofenac sodium 1 % topical gel 4 g topical QID #100 grams 07/03/23 07/06/24 06/20/24 Rx (Voltaren Arthritis Pain) atorvastatin 40 mg tablet 40 mg PO DAILY #90 tabs 11/21/23 07/06/24 07/05/24 Rx metoprolol succinate 25 mg 12.5 mg (1/2 x 25 mg) PO DAILY #90 12/11/23 07/06/24 07/05/24 Rx tablet,extended release 24 hr tabs (Toprol XL) ipratropium bromide 0.02 % 2.5 ml inhalation Q6H PRN 12/15/23 07/06/24 07/05/24 Rx solution for inhalation shortness of breath or wheezing #150 mL tamsulosin 0.4 mg capsule 0.8 mg (2 x 0.4 mg) PO QPM #180 12/16/23 07/06/24 07/05/24 Rx caps prednisone 5 mg tablet 5 mg PO DAILY #90 tabs 01/20/24 07/06/24 07/05/24 Rx tramadol 50 mg tablet 50 mg PO TID PRN take for severe 01/20/24 07/06/24 07/05/24 Rx pain PRN #60 tabs 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 100 mcg-umeclid 1 inh inhalation DAILY 06/21/24 07/06/24 07/05/24 History 62.5 mcg-vilant 25 mcg inhalat.powder (Trelegy Ellipta) fluticasone propionate 50 2 spray intranasal DAILY 06/21/24 07/06/24 07/05/24 History mcg/actuation nasal spray,suspension Allergies Allergy/AdvReac Type Severity Reaction Status Date / Time Penicillins Allergy Unknown Verified 07/04/24 12:36 tramadol AdvReac Intermediate N/V feels Verified 07/04/24 12:36 bad Current Medications Generic Name Dose Route Start Last Admin Trade Name Freq PRN Reason Stop Dose Admin Sodium Chloride 1,000 mls @ 30 mls/hr 07/06/24 11:45 07/06/24 12:01 Sodium Chloride 0.9% IV 07/07/24 11:44 30 mls/hr .Q24H JESUS Administration PFSH Anesthesia Medical History Tobacco use disorder Schatzki's ring Upper GI bleed Osteoarthritis of right knee BPH (benign prostatic hyperplasia) Esophageal dilatation Atherosclerosis of coronary artery History of coronary artery disease Unstable angina High risk medication use Degenerative joint disease (DJD) of lumbar spine History of esophageal dilatation Degenerative lumbar spinal stenosis Osteoporosis COPD (chronic obstructive pulmonary disease) Immunosuppression Byron's granulomatosis with vasculitis Surgical History Previous back surgery back surg approx 06/07/21 Status post lumbar laminectomy Hx of heart artery stent 5 stents History of inguinal hernia repair, bilateral History of arthroscopy of right shoulder History of splenectomy History of right hip replacement Family History Mother , AT AGE 88 Renal failure Congestive heart failure (CHF) Father , AT AGE 65 Cancer LUNG Other CAD (coronary artery disease) Chronic kidney disease (CKD) Hypertension Lung disease Denies family history of Rheumatoid arthritis Diabetes Clotting disorder Dementia Hyperlipidemia Psychiatric illness Systemic lupus erythematosus (SLE) in adult Anesthesia complication Bleeding disorder Stroke Social History Smoking and tobacco/nicotine status: current every day tobacco/nicotine user cigarettes [ Other cigarette details: 1PPD, 130PY 2PPD x 60 +yrs] Alcohol intake: never Substance/Drug Use: never Lives independently: Yes Marital status: Number of children: 4 Current occupational status: retired Data Anesthesia Cardiac Studies: Echocardiogram 06/20/22
[2024-07-06 12:33] VITALS: PULSE 73; RESP 17; O2SAT 92
[2024-07-06] MEDS: ipratropium-albuterol 3 mL Neb INHALATION (12:33)
--- NOTE | 2024-07-06 13:29 | W.PM.OPSUD ---
Surgery/Procedure H&P Update DATE OF PROCEDURE: July 06, 2024 DATE H&P PERFORMED: 06/16/24 H&P UPDATE INFORMATION: I have reviewed H&P completed within last 30 days, I have examined patient prior to procedure and Changes to prior documentation as noted here CHANGES TO PREVIOUS DOCUMENTATION: Patient requires a serial dilation because full dilation cannot be performed the first time PREOP DIAGNOSIS: Esophageal stenosis PLANNED PROCEDURE: Operation Date: 07/06/24 12:30 Proposed Procedures p EGD Dilation W/ Balloon [id number], R13.10(Not Applicable) - Praneeth Solitario DO
[2024-07-06 13:51] VITALS: BP 97/63; PULSE 70; RESP 16; TEMP 36.6; O2SAT 96
[2024-07-06 14:01] VITALS: BP 104/72; PULSE 73; RESP 16; O2SAT 93
[2024-07-06 14:11] VITALS: BP 108/69; PULSE 75; RESP 16; O2SAT 2
--- NOTE | 2024-07-06 14:21 | ANE.PACU2 ---
Inpatient post-anesthesia follow up: Airway intact: Yes Vital signs: Temperature 97.9 F Pulse Rate 75 Respiratory Rate 16 Blood Pressure 108/69 Pulse Oximetry 2 Oxygen Delivery Me thod Room Air Oxygen Flow Rate Fraction of Inspir ed Oxygen Hydration adequate: Yes Nausea and vomiting: No Pain level: 1 Mental status: Baseline
== END 2024-07-06 14:21 | disposition home or self-care (01) ==
PROVIDERS: PCP Family Medicine; Visit Provider Surgery
DX: R13.10 Dysphagia, unspecified (principal); K22.2 Esophageal obstruction; F17.210 Nicotine dependence, cigarettes, uncomplicated; J44.9 Chronic obstructive pulmonary disease, unspecified; I25.10 Atherosclerotic heart disease of native coronary artery without angina pectoris; Z95.5 Presence of coronary angioplasty implant and graft; K21.9 Gastro-esophageal reflux disease without esophagitis; Z79.82 Long term (current) use of aspirin; N40.0 Benign prostatic hyperplasia without lower urinary tract symptoms; M81.0 Age-related osteoporosis without current pathological fracture
CPT/HCPCS: 43235; 43249; 94640; J2704; J7030

== ENCOUNTER → 2024-07-28 13:25 | Outpatient (BNVA) | payer OTHER, SELFPAY | PROVIDERS: PCP Family Medicine; Visit Provider Student in an Organized Health Care Education/Training Program | DX: M67.431 Ganglion, right wrist (principal); M67.432 Ganglion, left wrist; R20.0 Anesthesia of skin; M19.031 Primary osteoarthritis, right wrist; M19.032 Primary osteoarthritis, left wrist | CPT/HCPCS: 73110; 73130; 99213 ==

== ENCOUNTER → 2024-08-01 09:00 | Outpatient (BNVA) | payer OTHER, SELFPAY | PROVIDERS: PCP Family Medicine; Visit Provider Surgery | DX: Z09 Encounter for follow-up examination after completed treatment for conditions other than malignant neoplasm (principal); K21.9 Gastro-esophageal reflux disease without esophagitis; K22.2 Esophageal obstruction; K22.89 Other specified disease of esophagus | CPT/HCPCS: 99214 ==

== ENCOUNTER → 2025-02-07 12:00 | Outpatient (BNVA) | payer OTHER, SELFPAY | PROVIDERS: PCP Family Medicine; Visit Provider Internal Medicine Rheumatology | DX: Z79.899 Other long term (current) drug therapy (principal) | CPT/HCPCS: 36415; 80076; 82565; 85025; 85651; 86140; 86480; 86704; 86803; 87340 ==

== ENCOUNTER 2025-02-13 08:17 | Oncology outpatient (recurring) (ONCR) | payer MEDICARE, SELFPAY ==
[2025-02-13 08:26] VITALS: BP 120/65; PULSE 86; RESP 17; TEMP 36.4; O2SAT 91
[2025-02-13] MEDS: sodium chloride 0.9% 500 ML 75 ML IV (08:50)
[2025-02-13] MEDS: acetaminophen 325 mg Tablet 650 MG PO (08:51)
[2025-02-13] MEDS: diphenhydrAMINE 50 mg/mL SDV 1mL 25 MG IVP (08:51)
[2025-02-13] MEDS: methylPREDNISolone sod succ 40 mg/mL INJ 80 MG IVP (08:53)
[2025-02-13 09:45] VITALS: BP 94/54; PULSE 74; RESP 18; TEMP 36.2; O2SAT 90
[2025-02-13 10:15] VITALS: BP 117/57; PULSE 53; RESP 16; TEMP 36.6; O2SAT 94
[2025-02-13 11:15] VITALS: BP 121/63; PULSE 55; RESP 16; TEMP 36.4; O2SAT 90
[2025-02-13 11:30] VITALS: BP 110/51; BP 151/51; PULSE 58; RESP 16; TEMP 36.6; O2SAT 90
[2025-02-13 15:39] VITALS: BP 114/66; PULSE 65; RESP 18; TEMP 36.2; O2SAT 90
== END 2025-03-06 23:59 | disposition home or self-care (01) ==
PROVIDERS: PCP Family Medicine; Visit Provider Internal Medicine Rheumatology
DX: M31.30 Wegener's granulomatosis without renal involvement (principal); K22.2 Esophageal obstruction; Z79.899 Other long term (current) drug therapy
CPT/HCPCS: 96365; 96366; 96375; 99204; J1200; J2919; J7040; J9999; Q5119

== ENCOUNTER 2025-03-28 15:08 | Emergency (ER) | payer MEDICARE, SELFPAY ==
--- NOTE | 2025-03-28 15:15 | USR_ITS ---
PROCEDURE INFORMATION: Exam: US Duplex Left Lower Extremity Veins, Limited Exam date and time: 03/28/2025 3:46 PM Age: 84 years old Clinical indication: Pain; Leg, lower; Left; Additional info: Leg pain TECHNIQUE: Imaging protocol: Real-time duplex ultrasound of the left extremity with 2-D caldera scale, color Doppler flow and spectral waveform analysis including responses to compression and other maneuvers (when performed) with image documentation. Limited exam focused on the left lower extremity veins. COMPARISON: US scrotum [id number] 06/20/2022 5:35 PM FINDINGS: Left deep veins: Unremarkable. The common femoral, femoral, proximal profunda femoral and popliteal veins are patent without thrombus. Normal Doppler waveforms. Normal compressibility and/or augmentation response. Superficial veins: Greater saphenous vein at the saphenofemoral junction is patent without thrombus. Soft tissues: Unremarkable. US/[place] [id number] IMPRESSION: No evidence of deep vein thrombosis.
--- OUTSIDE RECORDS SUMMARY | 2025-03-28 15:17 | XMS_ITS | Encounter Summary ---
Author Organization [facility] Address [address] [place] [address] Care Team Providers Care Sort Line Name Role Phone Maynor Kowalski MD, Erlin Kim Primary Care Provider Encounter Details Date Type Department Care Team (Latest Contact Info) Description 08/26/[address] [facility] Erlin Mcguire Jr., MD [address] [place] [address] Osteoarthrosis, unspecified whether generalized or localized, unspecified site (Primary Dx); Inhibited sex excitement Social History Tobacco Use Types Packs/Day Years Used Date Smoking Tobacco: Never Assessed Sex and Gender Information Value Date Recorded Sex Assigned at Not on file 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
--- OUTSIDE RECORDS SUMMARY | 2025-03-28 15:17 | XMS_ITS | Encounter Summary ---
Author Organization [facility] Address [address] [place] [address] Care Team Providers Care Apron Cleaner Name Role Phone Maynor Kowalski MD, Erlin Kim Primary Care Provider Encounter Details Date Type Department Care Team (Latest Contact Info) Description 05/24/1999 Outpatient Historical [facility] Erlin Mcguire Jr., MD [address] [place] [address] Other and unspecified superficial injury of shoulder and upper arm, without mention of infection (Primary Dx) Social History Tobacco Use Types Packs/Day Years Used Date Smoking Tobacco: Never Assessed Sex and Gender Information Value Date Recorded Sex Assigned at Not on file 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
--- OUTSIDE RECORDS SUMMARY | 2025-03-28 15:17 | XMS_ITS | Encounter Summary ---
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
--- OUTSIDE RECORDS SUMMARY | 2025-03-28 15:17 | XMS_ITS | Encounter Summary ---
Author Organization [facility] Address [address] [place] [address] Care Team Providers Care Chief Executive Name Role Phone Maynor Kowalski MD, Erlin Kim Primary Care Provider Encounter Details Date Type Department Care Team (Latest Contact Info) Description 06/30/2002 Outpatient Historical [facility] Erlin Mcguire Jr., MD [address] [place] [address] OSTEOARTHROS NOS-UNSPEC (Primary Dx); Hypertrophy of prostate; DIZZINESS AND GIDDINESS Social History Tobacco Use Types Packs/Day Years Used Date Smoking Tobacco: Never Assessed Sex and Gender Information Value Date Recorded Sex Assigned at Not on file 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
--- OUTSIDE RECORDS SUMMARY | 2025-03-28 15:17 | XMS_ITS | Encounter Summary ---
Author Organization [facility] Address [address] [place] [address] Care Team Providers Care Tugger Operator Name Role Phone Maynor Kowalski MD, Erlin Kim Primary Care Provider Encounter Details Date Type Department Care Team (Latest Contact Info) Description 06/11/2006 Outpatient Historical [facility] Gastroenterology- [place] [address] [address] Preet Leigh MD [address] [facility] [address] [place] [address] Unspecified Follow-Up Examination (Primary Dx); Personal History of Colonic Polyps; Dysphagia; Esophageal Stricture Social History Tobacco Use Types Packs/Day Years Used Date Smoking Tobacco: Never Assessed Sex and Gender Information Value Date Recorded Sex Assigned at Not on file 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
--- OUTSIDE RECORDS SUMMARY | 2025-03-28 15:17 | XMS_ITS | Encounter Summary ---
Author Organization [facility] Address [address] [place] [address] Care Team Providers Care Assembly Loader Name Role Phone Maynor Kowalski MD, Erlin Kim Primary Care Provider Encounter Details Date Type Department Care Team (Latest Contact Info) Description 05/26/2001 Outpatient Historical [facility] Erlin Mcguire Jr., MD [address] [place] [address] Inhibited sex excitement (Primary Dx) Social History Tobacco Use Types Packs/Day Years Used Date Smoking Tobacco: Never Assessed Sex and Gender Information Value Date Recorded Sex Assigned at Not on file 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
--- OUTSIDE RECORDS SUMMARY | 2025-03-28 15:17 | XMS_ITS | Clinical Summary ---
Author Organization [facility] Address [address] [place] [address] Phone Care Team Providers Care Academic Specialist Name Role Phone Maynor Kowalski MD, Erlin Kim Primary Care Provider Allergies Active Allergy Reactions Criticality Noted Date Comments Penicillins Hives High 11/10/2008 Medications tamsulosin (FLOMAX) 0.4 mg Oral capsule Take 0.4 mg by mouth daily at bedtime. Active clopidogrel (PLAVIX) 75 mg Oral Tab Take 75 mg by mouth daily. Active gabapentin (NEURONTIN) 800 mg Oral tablet Take 800 mg by mouth 3 times daily. Active OMEPRAZOLE ORAL Take 20 mg by mouth 2 times daily. Active HYDROcodone-acet aminophen (NORCO) 10-325 mg Oral Tab Take 1 Tab by mouth every 6 hours as needed. Active oxyCODONE (ROXICODONE) 10 mg Oral tablet Take 5 mg by mouth every 6 hours as needed. Active azaTHIOprine (IMURAN) 50 mg Oral tablet Take 50 mg by mouth 2 times daily. # 2 in am #1 in pm Active predniSONE (DELTASONE) 5 mg Oral tablet Take 5 mg by mouth 2 times daily. Active isosorbide mononitrate SR 24 hour (IMDUR) 60 mg Oral tablet Take 60 mg by mouth daily information systems manager. Active nitroglycerin (NITROSTAT) 0.[address] 0.4 mg under tongue every 5 minutes as needed. Active tiZANidine (ZANAFLEX) 4 mg Oral Cap Take 4 mg by mouth every 8 hours as needed. Active fluticasone-salm eterol (ADVAIR DISKUS) 500-50 mcg/dose Inhalation DsDv Take 1 Puff by inhalation 2 times daily. Active aspirin (MARLYS) 81 mg Oral Tab Take by mouth daily. Active CALCIUM CARBONATE/VITAMI N D3 (CALCIUM + D ORAL) Take by mouth 2 times daily. Active CYANOCOBALAMIN, VITAMIN B-12, (VITAMIN B-12 ORAL) Take 1,000 mg by mouth 2 times daily. Active Potassium Gluconate 550 mg Oral Tab Take by mouth 2 times daily. Active tiotropium (SPIRIVA) 18 mcg Inhalation capsuleIndicatio ns:COPD (chronic obstructive pulmonary disease) (CMS/HCC) Take 1 Cap by inhalation daily. 1 Cap 11 2 Active mirtazapine (REMERON) 15 mg tablet Take 15 mg by mouth daily at bedtime. 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 Lung mass 05/30/2010 Overview (05/30/2010): Multiple and bilateral Exudative pleural effusion 05/30/2010 Overview (05/30/2010): 4/10, had Joe drain COPD (chronic obstructive pulmonary disease) Overview (05/30/2010): Mild 03/16 pulmonary function tests [facility] FEV1 2.37 liters 84% post bronchodilator Dysphagia, pharyngoesophageal phase 11/17/2008 Coronary artery disease Overview (05/30/2010): 04/16 latest stents GERD (gastroesophageal reflux disease) Unspecified essential hypertension Peripheral vascular disease Family History Medical History Relation Name Comments Cancer Brother Lung Cancer Father Kidney Disease Mother Aneurysm Sister Relation Name Status Comments Brother Father Mother Sister Social History Tobacco Use Types Packs/Day Years Used Date Smoking Tobacco: Former Cigarettes 2 50 0 05/08/1960 - 05/08/2010 Smokeless Tobacco: Never Alcohol Use Standard Drinks/Week Comments No 0 (1 standard drink = 0.6 oz pur e alcohol) Sex and Gender Information Value Date Recorded Sex Assigned at Not on file 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 Gender Identity Not on file Sexual Orientation Not on file Last Filed Vital Signs Vital Sign Reading Time Taken Comments Blood Pressure 99/62 03/21/2020 11:32 AM CDT Pulse 62 03/21/2020 9:24 AM CDT Temperature 36.8 C (98.2 F) 03/21/2020 11:31 AM CDT Respiratory Rate 20 03/21/2020 11:31 AM CDT Oxygen Saturation 95% 03/21/2020 11:31 AM CDT Inhaled Oxygen Concentration - - Weight 59 kg (130 lb) 03/21/2020 10:16 AM CDT Height 162.6 cm (5' 4 ) 03/21/2020 9:28 AM CDT Body Mass Index 22.31 03/21/2020 9:28 AM CDT Plan of Treatment Health Maintenance Due Date Last Done Comments DTAP/TDAP/TD VACCINES (1 - Tdap) 1960 PNEUMOCOCCAL VACCINE 50+ YEARS (1 of 2 - PCV) 08/29/19 60 ZOSTER VACCINE (1 of 2) 1991 RSV VACCINE (60+ or ) (1 - 1-dose 75+ series) 2016 INFLUENZA VACCINE (#1) 2025 COLORECTAL SCREENING Discontinued 06/11/2006 Colorectal Cancer Screening Discontinued FIT-DNA Q 3 years Discontinued FIT/FOBT Q 1 year Discontinued Flex Sig/CT Colonography Q 5 years Discontinued Medical Devices Implanted Type Area Stock Holder Device Identifier Shelf Expiration Date Model / Serial / Lot Lens Io Bi-Aspheric Softechd+23.25 - [id number] Implanted:Qty: 1 on 01/25/2020 by Kalen Gutierrez MD at [facility] Eye Left: Eye [employer] 10/18/2020 SOFTECHD+23 .25 / [id number] / Lens Io Bi-Aspheric Softechd+23.5 - [id number] Implanted:Qty: 1 on 03/21/2020 by Kalen Gutierrez MD at [facility] Eye [employer] 09/20/2023 SOFTECHD+23 .5 / [id number] / Insurance Advance Directives For more information, please contact: [phone] * Full Code (Latest Code Status on File) Date Activated Date Inactivated Comments 03/21/2020 9:54 AM 03/21/2020 1:44 PM * Full Code Date Activated Date Inactivated Comments 01/25/2020 10:44 AM 01/25/2020 2:12 PM * Full Code Date Activated Date Inactivated Comments 11/17/2008 10:58 AM 11/18/2008 2:01 AM Care Teams Academic Specialist Relationship Specialty Start Date End Date Erlin Mcguire Jr., MD [address] [place] [address] PCP - General 11/03/08
--- OUTSIDE RECORDS SUMMARY | 2025-03-28 15:17 | XMS_ITS | Encounter Summary ---
Author Organization [facility] Address [address] [place] [address] Care Team Providers Care Home Economist Name Role Phone Maynor Kowalski MD, Erlin Kim Primary Care Provider Encounter Details Date Type Department Care Team (Latest Contact Info) Description 05/31/2001 Outpatient Historical [facility] Cardiology- [place] [address] [place] [address] Preet Sandoval MD [address] [facility] [address] [place] [address] Other specified forms of chronic ischemic heart disease (Primary Dx); Coronary atherosclerosis of pala coronary artery; Pure hypercholesterolem Social History Tobacco Use Types Packs/Day Years Used Date Smoking Tobacco: Never Assessed Sex and Gender Information Value Date Recorded Sex Assigned at Not on file 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 Gender Identity Not on file Sexual Orientation Not on file documented as of this encounter Plan of Treatment Not on file documented as of this encounter Visit Diagnoses Diagnosis Other specified forms of chronic ischemic heart disease- Primary Coronary atherosclerosis of pala coronary artery Pure hypercholesterolem Pure hypercholesterolemia documented in this encounter Care Teams Home Economist Relationship Specialty Start Date End Date Erlin Mcguire Jr., MD [address] [facility] [place] [address] PCP - General 11/03/08 documented as of this encounter
--- OUTSIDE RECORDS SUMMARY | 2025-03-28 15:17 | XMS_ITS | Encounter Summary ---
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
--- OUTSIDE RECORDS SUMMARY | 2025-03-28 15:17 | XMS_ITS | Encounter Summary ---
Author Organization [facility] Address [address] [place] [address] Care Team Providers Care Estate Manager Name Role Phone Maynor Kowalski MD, Erlin Kim Primary Care Provider Encounter Details Date Type Department Care Team (Latest Contact Info) Description 02/08/[address] 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
--- OUTSIDE RECORDS SUMMARY | 2025-03-28 15:17 | XMS_ITS | Encounter Summary ---
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 Male 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
--- OUTSIDE RECORDS SUMMARY | 2025-03-28 15:17 | XMS_ITS | Encounter Summary ---
Author Organization [facility] Address [address] [place] [address] Care Team Providers Care Cigarette Making Machine Hopper Feeder Name Role Phone Maynor Kowalski MD, Erlin Kim Primary Care Provider Encounter Details Date Type Department Care Team (Late st Contact Info) Description 02/08/2004 Outpatient Historical [facility] Cardiology- [place] [address] [place] [address] Preet Sandoval MD [address] [facility] [address] [place] [address] CORON ATHEROSCL [place] CORON VESSEL (Primary Dx); CHRONIC AIRWAY OBSTRUCTION NEC (CMS/HCC); ORTHOSTATIC HYPOTENSION Social History Tobacco Use Types Packs/Day Years Used Date Smoking Tobacco: Never Assessed Sex and Gender Information Value Date Recorded Sex Assigned at Not on file 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 Gender Identity Not on file Sexual Orientation Not on file documented as of this encounter Plan of Treatment Not on file documented as of this encounter Visit Diagnoses Diagnosis Coronary atherosclerosis of [place] coronary artery- Primary Chronic airway obstruction, not elsewhere classified (CMS/HCC) Chronic airway obstruction, not elsewhere classified Orthostatic hypotension documented in this encounter Care Teams Cigarette Making Machine Hopper Feeder Relationship Specialty Start Date End Date Erlin Mcguire Jr., MD [address] [place] [address] PCP - General 11/03/08 documented as of this encounter
--- OUTSIDE RECORDS SUMMARY | 2025-03-28 15:17 | XMS_ITS | Encounter Summary ---
Author Organization [facility] Address [address] [facility] Attn: [place] [address] Care Team Providers Care Biotechnologist Name Role Phone Maynor Kowalski MD, Erlin Kim Primary Care Provider Encounter Details Date Type Department Care Team (Late st Contact Info) Description 05/26/2001 Outpatient Historical Erlin Mcguire Jr., MD [address] [place] [address] Social History Tobacco Use Types Packs/Day Years Used Date Smoking Tobacco: Never Assessed Sex and Gender Information Value Date Recorded Sex Assigned at Not on file 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
--- OUTSIDE RECORDS SUMMARY | 2025-03-28 15:17 | XMS_ITS | Encounter Summary ---
Author Organization [facility] Address [address] [place] [address] Care Team Providers Care Swabber Name Role Phone Maynor Kowalski MD, Erlin Kim Primary Care Provider Encounter Details Date Type Department Care Team (Latest Contact Info) Description 10/17/2003 Inpatient Historical [facility] Cardiac Physician Relations Specialist [address] [place] [address] Preet Sandoval MD [address] [place] [address] CORON ATHEROSCL [place] CORON VESSEL (Primary Dx) Social History Tobacco Use Types Packs/Day Years Used Date Smoking Tobacco: Never Assessed Sex and Gender Information Value Date Recorded Sex Assigned at Not on file 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
--- OUTSIDE RECORDS SUMMARY | 2025-03-28 15:17 | XMS_ITS | Encounter Summary ---
Author Organization [facility] Address [address] [facility] Attn: [place] [address] Care Team Providers Care Director Recreation Name Role Phone Maynor Kowalski MD, Erlin Kim Primary Care Provider Encounter Details Date Type Department Care Team (Late st Contact Info) Description 01/06/2001 Outpatient Historical Erlin Mcguire Jr., MD [address] [place] [address] Social History Tobacco Use Types Packs/Day Years Used Date Smoking Tobacco: Never Assessed Sex and Gender Information Value Date Recorded Sex Assigned at Not on file Legal Sex Male 5:51 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
--- OUTSIDE RECORDS SUMMARY | 2025-03-28 15:17 | XMS_ITS | Encounter Summary ---
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
--- OUTSIDE RECORDS SUMMARY | 2025-03-28 15:17 | XMS_ITS | Encounter Summary ---
Author Organization [facility] Address [address] [facility] Attn: [place] [address] Care Team Providers Care Chief Petroleum Engineer Name Role Phone Maynor Kowalski MD, Erlin Kim Primary Care Provider Encounter Details Date Type Department Care Team (Late st Contact Info) Description 09/16/2001 Outpatient Historical ReesePreet MD [address] [facility] [address] [place] [phone] Social History Tobacco Use Types Packs/Day Years Used Date Smoking Tobacco: Never Assessed Sex and Gender Information Value Date Recorded Sex Assigned at Not on file 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
--- OUTSIDE RECORDS SUMMARY | 2025-03-28 15:17 | XMS_ITS | Encounter Summary ---
Author Organization [facility] Address [address] [facility] Attn: [place] [address] Care Team Providers Care Banking Consultant Name Role Phone Maynor Kowalski MD, Erlin Kim Primary Care Provider Encounter Details Date Type Department Care Team (Late st Contact Info) Description 02/19/2001 Outpatient Historical Preet Ennis MD [address] [place] [address] [place] [address] Social History Tobacco Use Types Packs/Day Years Used Date Smoking Tobacco: Never Assessed Sex and Gender Information Value Date Recorded Sex Assigned at Not on file 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
--- OUTSIDE RECORDS SUMMARY | 2025-03-28 15:17 | XMS_ITS | Encounter Summary ---
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
--- OUTSIDE RECORDS SUMMARY | 2025-03-28 15:17 | XMS_ITS | Encounter Summary ---
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); Coronary atherosclerosis of [place] coronary artery; Mixed hyperlipidemia; Precordial pain Social History Tobacco Use Types Packs/Day Years Used Date Smoking Tobacco: Never Assessed Sex and Gender Information Value Date Recorded Sex Assigned at Not on file 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
--- OUTSIDE RECORDS SUMMARY | 2025-03-28 15:17 | XMS_ITS | Encounter Summary ---
Author Organization [facility] Address [address] [place] [address] Care Team Providers Care Bad Credit Collector Name Role Phone Maynor Kowalski MD, Erlin Kim Primary Care Provider Encounter Details Date Type Department Care Team (Latest Contact Info) Description 08/25/2001 Outpatient Historical [facility] Erlin Mcguire Jr., MD [address] [place] [address] OSTEOARTHROS NOS-UNSPEC (Primary Dx); Esophageal stricture Social History Tobacco Use Types Packs/Day Years Used Date Smoking Tobacco: Never Assessed Sex and Gender Information Value Date Recorded Sex Assigned at Not on file 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
--- OUTSIDE RECORDS SUMMARY | 2025-03-28 15:17 | XMS_ITS | Encounter Summary ---
Author Organization [facility] Address [address] [place] [address] Care Team Providers Care Ceramic Tiler Name Role Phone Maynor Kowalski MD, Erlin Kim Primary Care Provider Encounter Details Date Type Department Care Team (Latest Contact Info) Description 08/13/2001 Outpatient Historical [facility] Erlin Mcguire Jr., MD [address] [place] [address] CHEST PAIN NOS (Primary Dx); ESOPHAGEAL REFLUX; OSTEOARTHROS NOS-UNSPEC Social History Tobacco Use Types Packs/Day Years Used Date Smoking Tobacco: Never Assessed Sex and Gender Information Value Date Recorded Sex Assigned at Not on file 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
--- OUTSIDE RECORDS SUMMARY | 2025-03-28 15:17 | XMS_ITS | Encounter Summary ---
Author Organization [facility] Address [address] [place] [address] Care Team Providers Care Rubber Liner Name Role Phone Maynor Kowalski MD, Erlin Kim Primary Care Provider Encounter Details Date Type Department Care Team (Latest Contact Info) Description 01/06/2001 Outpatient Historical [facility] Erlin Mcguire Jr., MD [address] [place] [address] Rectal/anal hemorrhage (Primary Dx); Esophageal stricture; Hypertrophy of prostate; Chest pain, unspecified Social History Tobacco Use Types Packs/Day Years Used Date Smoking Tobacco: Never Assessed Sex and Gender Information Value Date Recorded Sex Assigned at Not on file 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 Sex Male 5:51 AM WIG COMBER Gender Identity Not on file Sexual Orientation Not on file documented as of this encounter Plan of Treatment Not on file documented as of this encounter Visit Diagnoses Diagnosis Rectal/anal hemorrhage- Primary Hemorrhage of rectum and anus Esophageal stricture Stricture and stenosis of esophagus Hypertrophy of prostate Hypertrophy (benign) of prostate Chest pain, unspecified documented in this encounter Care Teams Rubber Liner Relationship Specialty Start Date End Date Erlin Mcguire Jr., MD [address] [place] [address] PCP - General 11/03/08 documented as of this encounter
--- OUTSIDE RECORDS SUMMARY | 2025-03-28 15:17 | XMS_ITS | Encounter Summary ---
Author Organization [facility] Address [address] [place] [address] Care Team Providers Care Manager Epic Name Role Phone Maynor Kowalski MD, Erlin Kim Primary Care Provider Encounter Details Date Type Department Care Team (Latest Contact Info) Description 01/18/2001 Outpatient Historical [facility] Erlin Mcguire Jr., MD [address] [place] [address] Anemia, unspecified (Primary Dx); Shortness of breath; Anxiety state, unspecified; Other postprocedural status(V45.89) Social History Tobacco Use Types Packs/Day Years Used Date Smoking Tobacco: Never Assessed Sex and Gender Information Value Date Recorded Sex Assigned at Not on file 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
--- OUTSIDE RECORDS SUMMARY | 2025-03-28 15:17 | XMS_ITS | Encounter Summary ---
Author Organization [facility] Address [address] [facility] Attn: [place] [address] Care Team Providers Care Soda Drier Feeder Name Role Phone Maynor Kowalski MD, Erlin Kim Primary Care Provider Encounter Details Date Type Department Care Team (Late st Contact Info) Description 06/10/2002 Outpatient Historical Erlin Mcguire Jr., MD [address] [place] [address] Social History Tobacco Use Types Packs/Day Years Used Date Smoking Tobacco: Never Assessed Sex and Gender Information Value Date Recorded Sex Assigned at Not on file Legal Sex Male 5:51 AM NURSES' REGISTRY DIRECTOR Gender Identity Not on file Sexual Orientation Not on file documented as of this encounter Plan of Treatment Not on file documented as of this encounter Visit Diagnoses Not on filedocumented in this encounter Care Teams Soda Drier Feeder Relationship Specialty Start Date End Date Erlin Mcguire Jr., MD [address] [place] [address] PCP - General 11/03/08 documented as of this encounter
--- OUTSIDE RECORDS SUMMARY | 2025-03-28 15:17 | XMS_ITS | Encounter Summary ---
Author Organization [facility] Address [address] [place] [address] Care Team Providers Care Sales Record Clerk Name Role Phone Maynor Kowalski MD, Erlin Kim Primary Care Provider Encounter Details Date Type Department Care Team (Late st Contact Info) Description 10/11/2003 Outpatient Historical [facility] Cardiology- [place] [address] [place] [address] Stone Olivas, PARKING METER MECHANIC [address] [place] [address] Old myocardial infarct (Primary Dx); CORON ATHEROSCL [place] CORON VESSEL; Pure hypercholesterolem; PRECORDIAL PAIN Social History Tobacco Use Types Packs/Day Years Used Date Smoking Tobacco: Never Assessed Sex and Gender Information Value Date Recorded Sex Assigned at Not on file Legal Sex Male 5:51 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
--- OUTSIDE RECORDS SUMMARY | 2025-03-28 15:17 | XMS_ITS | Encounter Summary ---
Author Organization 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
--- OUTSIDE RECORDS SUMMARY | 2025-03-28 15:17 | XMS_ITS | Encounter Summary ---
Author Organization [facility] Address [address] [place] [address] Care Team Providers Care Summer School Coordinator Name Role Phone Maynor Kowalski MD, Erlin Kim Primary Care Provider Encounter Details Date Type Department Care Team (Latest Contact Info) Description 01/22/2001 Outpatient Historical [facility] Erlin Mcguire Jr., MD [address] [place] [address] Spasm of muscle (Primary Dx) Social History Tobacco Use Types Packs/Day Years Used Date Smoking Tobacco: Never Assessed Sex and Gender Information Value Date Recorded Sex Assigned at Not on file 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
--- OUTSIDE RECORDS SUMMARY | 2025-03-28 15:17 | XMS_ITS | Encounter Summary ---
Author Organization [facility] Address [address] [place] [address] Care Team Providers Care Vessel Specialist Name Role Phone Maynor Kowalski MD, Erlin Kim Primary Care Provider Encounter Details Date Type Department Care Team (Latest Contact Info) Description 06/11/[address] [facility] Endoscopy [place] [address] 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
--- OUTSIDE RECORDS SUMMARY | 2025-03-28 15:17 | XMS_ITS | Encounter Summary ---
Author Organization [facility] Address [address] [place] [address] Care Team Providers Care Inseam Trimming Machine Operator Name Role Phone Maynor Kowalski MD, Erlin Kim Primary Care Provider Encounter Details Date Type Department Care Team (Latest Contact Info) Description 02/11/2002 Outpatient [facility] [address] [place] [phone] Mahesh Fink MD [address] [place] [address] PRECORDIAL PAIN (Primary Dx) Social History Tobacco Use Types Packs/Day Years Used Date Smoking Tobacco: Never Assessed Sex and Gender Information Value Date Recorded Sex Assigned at Not on file Legal Sex Male 5:51 AM SAFE DEPOSIT ATTENDANT Gender Identity Not on file Sexual Orientation Not on file documented as of this encounter Plan of Treatment Not on file documented as of this encounter Visit Diagnoses Diagnosis Precordial pain- Primary documented in this encounter Care Teams Inseam Trimming Machine Operator Relationship Specialty Start Date End Date Erlin Mcguire Jr., MD [address] [facility] [place] [address] PCP - General 11/03/08 documented as of this encounter
--- OUTSIDE RECORDS SUMMARY | 2025-03-28 15:17 | XMS_ITS | Encounter Summary ---
Author Organization [facility] Address [address] [facility] Attn: [place] [address] Care Team Providers Care Soccer Commentator Name Role Phone Maynor Kowalski MD, Erlin Kim Primary Care Provider Encounter Details Date Type Department Care Team (Late st Contact Info) Description 01/06/2001 Inpatient Historical Preet Sandoval MD [address] [facility] [address] [place] [address] Social History Tobacco Use Types Packs/Day Years Used Date Smoking Tobacco: Never Assessed Sex and Gender Information Value Date Recorded Sex Assigned at Not on file 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
--- OUTSIDE RECORDS SUMMARY | 2025-03-28 15:17 | XMS_ITS | Encounter Summary ---
Author Organization [facility] Address [address] [place] [address] Care Team Providers Care Roof Shingler Name Role Phone Maynor Kowalski MD, Erlin Kim Primary Care Provider Encounter Details Date Type Department Care Team (Latest Contact Info) Description 05/20/2002 Outpatient Historical [facility] Erlin cMguire Jr., MD [address] [place] [address] DIZZINESS AND GIDDINESS (Primary Dx) Social History Tobacco Use Types Packs/Day Years Used Date Smoking Tobacco: Never Assessed Sex and Gender Information Value Date Recorded Sex Assigned at Not on file 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
--- OUTSIDE RECORDS SUMMARY | 2025-03-28 15:17 | XMS_ITS | Encounter Summary ---
Author Organization [facility] Address [address] [facility] Attn: [place] [id number] Care Team Providers Care Application Support Intern Name Role Phone Maynor Koawlski MD, Erlin Kim Primary Care Provider Encounter Details Date Type Department Care Team (Late st Contact Info) Description 01/18/2001 Outpatient Historical Erlin Mcguire Jr., MD [address] [place] [phone] Social History Tobacco Use Types Packs/Day Years Used Date Smoking Tobacco: Never Assessed Sex and Gender Information Value Date Recorded Sex Assigned at Not on file 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
--- OUTSIDE RECORDS SUMMARY | 2025-03-28 15:17 | XMS_ITS | Encounter Summary ---
Author Organization [facility] Address [address] [place] [address] Care Team Providers Care Brick Pitcher Name Role Phone Maynor Kowalski MD, Erlin Kim Primary Care Provider Encounter Details Date Type Department Care Team (Latest Contact Info) Description 06/19/1999 Outpatient Historical [facility] Erlin Mcguire Jr., MD [address] [place] [phone] Calculus of kidney (Primary Dx) Social History Tobacco Use Types Packs/Day Years Used Date Smoking Tobacco: Never Assessed Sex and Gender Information Value Date Recorded Sex Assigned at Not on file Legal Sex Male 5:51 AM DINING SERVICES DIRECTOR Gender Identity Not on file Sexual Orientation Not on file documented as of this encounter Plan of Treatment Not on file documented as of this encounter Visit Diagnoses Diagnosis Calculus of kidney- Primary documented in this encounter Care Teams Brick Pitcher Relationship Specialty Start Date End Date Erlin Mcguire Jr., MD [address] [place] [address] PCP - General 11/03/08 documented as of this encounter
--- OUTSIDE RECORDS SUMMARY | 2025-03-28 15:17 | XMS_ITS | Encounter Summary ---
Author Organization [facility] Address [address] [facility] Attn: [place] [address] Care Team Providers Care Mapping Specialist Name Role Phone Maynor Kowalski MD, Erlin Kim Primary Care Provider Encounter Details Date Type Department Care Team (Late st Contact Info) Description 01/08/2001 Inpatient Historical Preet Sandoval MD [address] [facility] [address] [place] [address] Social History Tobacco Use Types Packs/Day Years Used Date Smoking Tobacco: Never Assessed Sex and Gender Information Value Date Recorded Sex Assigned at Not on file Legal Sex Male 5:51 AM RN RADIOLOGY Gender Identity Not on file Sexual Orientation Not on file documented as of this encounter Plan of Treatment Not on file documented as of this encounter Visit Diagnoses Not on filedocumented in this encounter Care Teams Mapping Specialist Relationship Specialty Start Date End Date Erlin Mcguire Jr., MD [address] [place] [address] PCP - General 11/03/08 documented as of this encounter
--- OUTSIDE RECORDS SUMMARY | 2025-03-28 15:18 | XMS_ITS | Encounter Summary ---
Author Organization [facility] Address [address] [place] [address] Care Team Providers Care Stroke Coordinator Name Role Phone Maynor Kowalski MD, Erlin Kim Primary Care Provider Encounter Details Date Type Department Care Team (Late st Contact Info) Description 02/01/[address] 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
--- OUTSIDE RECORDS SUMMARY | 2025-03-28 15:18 | XMS_ITS | Encounter Summary ---
Author Organization [facility] Address [address] [facility] Attn: [place] [address] Care Team Providers Care Vp Care Management Name Role Phone Maynor Kowalski MD, Erlin Kim Primary Care Provider Encounter Details Date Type Department Care Team (Late st Contact Info) Description 01/28/2002 Outpatient Historical Erlin Mcguire Jr., MD [address] [place] [phone] Social History Tobacco Use Types Packs/Day Years Used Date Smoking Tobacco: Never Assessed Sex and Gender Information Value Date Recorded Sex Assigned at Not on file 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
--- OUTSIDE RECORDS SUMMARY | 2025-03-28 15:18 | XMS_ITS | Encounter Summary ---
Author Organization [facility] Address [address] [place] [address] Care Team Providers Care Mobile Mechanic Name Role Phone Maynor Kowalski MD, Erlin Kim Primary Care Provider Encounter Details Date Type Department Care Team (Latest Contact Info) Description 01/28/2002 Outpatient Historical [facility] Erlin Mcguire Jr., MD [address] [place] [address] ATHEROSCLEROSIS NOS (Primary Dx); OSTEOARTHROS NOS-UNSPEC; TOBACCO USE DISORDER Social History Tobacco Use Types Packs/Day Years Used Date Smoking Tobacco: Never Assessed Sex and Gender Information Value Date Recorded Sex Assigned at Not on file 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
--- OUTSIDE RECORDS SUMMARY | 2025-03-28 15:18 | XMS_ITS | Encounter Summary ---
Author Organization [facility] Address [address] [place] [address] Care Team Providers Care Cover Operator Name Role Phone Maynor Kowalski MD, Erlin Kim Primary Care Provider Encounter Details Date Type Department Care Team (Late st Contact Info) Description 02/11/2002 Outpatient Historical [facility] [place] [place] [address] [place] [phone] Preet Sandoval MD [address] [facility] [address] [place] [phone] CORONARY ATHEROSCLER UNSPEC VESSEL (Primary Dx); CHEST PAIN NOS; Pain in limb; SCREENING-ISCHEMIC HEART DIS Social History Tobacco Use Types Packs/Day Years Used Date Smoking Tobacco: Never Assessed Sex and Gender Information Value Date Recorded Sex Assigned at Not on file 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
--- OUTSIDE RECORDS SUMMARY | 2025-03-28 15:18 | XMS_ITS | Patient Health Record ---
Author Organization [facility] Address [address] [place] [address] Care Team Providers Care Development Engineer Name Role Phone Kristine Gilmar Primary Care Provider Erlin Mcguire Unavailable [phone] Reason For Referral No Information Medications Medication SIG (Take, Route, Frequency, Duration) Notes Start Date End Date Status Metoprolol Tartrate 25 MG Tablet 1 tablet with food Orally Twice a day Active Tamsulosin HCl 0.4 MG Capsule 2 capsules Orally Once a day Active Mirtazapine 30 MG Tablet 1 tablet at bed time Orally Once a day Active Aspirin 325 MG Tablet Delayed Release 1 tablet Orally Once a day Active Omeprazole 20 MG Capsule Delayed Release 1 capsule 30 minutes before morning meal Orally BID Active Vitamin D3 50 MCG (1999) Tablet 1 tablet Orally Once a day Active Triamcinolone Acetonide 0.025 % Cream 1 application Externally Once a day; Duration: 7 days 05/29/2020 Active predniSONE 5 MG Tablet 1 tablet Oral Onc e a day; Duration: 30 12/08/2013 Active Immunizations Vaccine Route Administration Date Status Comme nts Afluria Quadrivalent Influenza Vaccine 3 years+ IM Intramuscular 05/29/2020 Administered Flucelvax Unknown 06/08/2019 Administered Pneumococcal conjugate PCV 13 Unknown 09/08/2014 Administered Pneumococcal polysaccharide PPV23 Unknown 09/08/2012 Administered Tdap Unknown 07/09/2012 Administered Social History Tobacco Use: Social History Observation Description Date Details (start date - stop date) Former Smoker NA - NA Social History Drugs/Alcohol: Social Info Question Answer Notes Alcohol Screen (Audit-C) Did you have a drink containing alcohol in the past year? No Points 0 Interpretation Negative Drugs Have you used drugs other than those for medical reasons in the past 12 months? No Household: Social Info Question Answer Notes Household Marital status: Level of education: not finished high school Tobacco Use: Social Info Question Answer Notes xTobacco Use/Smoking Are you a former smoker How long has it been since you last smoked? 1-5 years Additional Details Category Social Info Options Details Drugs/Alcohol: Do you smoke marijuana? De nies Problems Problem Type SNOMED Code ICD Code Onset Dates Problem Status W/U Status Risk Notes Problem Chronic pain (52985643) Other chronic pain (G89.29) Active confirmed Problem Age-related osteoporosis (283634534) Age-related osteoporosis without current pathological fracture (M81.0) Active confirmed Problem Pure hypercholesterolemia (644475642) Pure hypercholesterolemia (E78.00) Active confirmed Problem Chronic kidney disease stage 3 (disorder) (155882468) Stage 3 chronic kidney disease (N18.3) Active confirmed Problem Chronic kidney disease stage 3 (568136517) Chronic kidney disease, Stage III (moderate) (585.3) 2014 Active confirmed [id number]- Problem Lumbar radiculopathy (126198102) Lumbar radiculopathy (722.10) 2012 Active confirmed [id number]- Problem Total replacement of hip (procedure) (49889606) Artificial joint replacement, Total hip replacement (V43.64) 2013 Active confirmed [id number]- Problem Coronary arteriosclerosis (disorder) (53972422) Coronary artery disease, of eyak coronary artery (414.01) 2016 Active confirmed [id number]- Problem Dehydration (92734614) Dehydration (276.51) 2010 Problem resolved confirmed [id number]-[id number]- Problem Personality change (059586642) Personality change due to conditions classified elsewhere (310.1) 2011 Problem resolved confirmed [id number]-[id number]- Problem 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 Problem resolved confirmed [id number]-[id number]- Problem Acute respiratory failure (51959792) Acute respiratory failure (518.81) 2017 Problem resolved confirmed [id number]-[id number]- Problem Dental caries (30204177) Other dental caries (521.09) 2013 Problem resolved confirmed [id number]-[id number]- Problem Hematuria (97011566) Hematuria (599.7) 2002 Problem resolved confirmed [id number]-[id number]- Problem Impetigo (53194851) Impetigo (684) 2010 Problem resolved confirmed [id number]-[id number]- Problem Memory loss (89541662) Memory loss (780.93) 2018 Problem resolved confirmed [id number]-[id number]- Problem Shortness of breath (413185267) Shortness of breath (786.05) 2002 Problem resolved confirmed [id number]-[id number]- Problem Wheezing (29835845) Wheezing (786.07) 2012 Problem resolved confirmed [id number]-[id number]- Problem Cough (42371495) Cough (786.2) 2011 Problem resolved confirmed [id number]-[id number]- Problem Heartburn (01458630) Heartburn (787.1) 2008 Problem resolved confirmed [id number]-[id number]- Problem Slowing of urinary stream (05233733) Slowing of urinary stream (788.62) 2012 Problem resolved confirmed [id number]-[id number]- Problem Lung field abnormal (723483502) Other nonspecific abnormal finding of lung field (793.19) 2017 Problem resolved confirmed [id number]-[id number]- Problem Screening for malignant neoplasm of prostate (257316433) Screening for prostate cancer (V76.44) 2007 Problem resolved confirmed [id number]-[id number]- Problem Upper respiratory infection (26848323) Upper respiratory infection (465.9) 2017 Problem resolved confirmed [id number]-[id number] [id number]- Problem General weakness (27894545) Generalized weakness (780.79) 2009 Problem resolved confirmed [id number]-[id number] [id number]- Problem Sleep apnea (84824584) Sleep apnea (780.57) 2011 Problem resolved confirmed [id number]-[id number] [id number]- Problem Androgen deficiency (68176254) Testosterone deficiency (257.2) 2013 Problem resolved confirmed Gaurav-[id number] [id number]- Problem Depression (512349709) Depression (311) 2003 Problem resolved confirmed [id number]-[id number] [id number]- Problem Dizziness (367030263) Dizziness (780.4) 0 2003 Problem resolved confirmed [id number]-[id number] [id number]- Problem Low back pain (745203625) Low back pain (724.2) 2011 Problem resolved confirmed Gaurav-[id number] [id number]- Problem Fatigue (76913716) Fatigue (780.79) 08/19 Problem resolved confirmed Gaurav-[id number] [id number]- Problem Fainting (848867870) Fainting (780.2) 2003 Problem resolved confirmed [id number]-[id number] [id number]- Problem Hypercholesterolemia (45326513) Hypercholesterolemia (272.0) 2016 Problem resolved confirmed Gaurav-[id number] [id number]- Problem Moderate recurrent major depression (14315139) Major depression, recurrent episode, moderate (296.32) 2010 Problem resolved confirmed Gaurav-[id number] [id number]- Problem Benign essential hypertension (7244636) Mild hypertension (401.1) 2018 Problem resolved confirmed Gaurav-[id number] [id number]- Problem Pre-surgery evaluation (632063235) Preop history and physical (V72.83) 2007 Problem resolved confirmed Gaurav-[id number] [id number]- Problem Radiologic abnormality of chest, NEC (793.2) 2018 Problem resolved confirmed Gaurav-[id number] [id number]- Problem Shortness of breath (946753464) Shortness of breath (786.09) 2010 Problem resolved confirmed Gaurav-[id number] [id number]- Problem Total hip replacemen t (52605113) Total hip replacement (V43.64) 2013 Problem resolved confirmed [id number]-[id number] [id number]- Problem Persistent cough (702809556) Persistent cough (786.2) 2013 Problem resolved confirmed [id number]-[id number] [id number]- Problem Closed fracture of multiple ribs (33004287) Closed rib fracture, of multiple unspecified ribs (807.09) 2010 Problem resolved confirmed [id number]-[id number] [id number]- Problem Disorder of hematopoietic system (51424908) Other abnormal findings on blood examination (790.99) 2014 Problem resolved confirmed Gaurav-98 5911- Problem Disorder of hematopoietic system (32211848) Other abnormal laboratory result on blood (790.99) 2007 Problem resolved confirmed Gaurav-[id number] [id number]- Problem Abdominal aortic aneurysm (340415519) Abdominal aortic aneurysm (441.4) 2007 Problem resolved confirmed Gaurav-98 [id number]- Problem Acute exacerbation o f chronic obstructive airways disease (415403251) Acute exacerbation of chronic obstructive pulmonary disease (COPD) (491.21) 2018 Problem resolved confirmed [id number]-[id number] [id number]- Problem Panic disorder (024388016) Anxiety, with panic disorder (300.01) 2002 Problem resolved confirmed Gaurav-98 [id number]- Problem Atherosclerosis of eyak extremity arteries, with intermittent claudication (440.21) 2003 Problem resolved confirmed Gaurav-[id number] 5911- Problem Chest pain (38373522) Chest pain (786.51) 2011 Problem resolved confirmed Gaurav-98 5911- Problem Tobacco user (948809785) Cigarette smoking (305.1) 2008 Problem resolved confirmed Gaurav-98 5911- Problem Cramp in limb (707878843) Cramps in limbs (729.82) 2011 Problem resolved confirmed Gaurav-[id number] 5911- Problem Emphysema (19920302) Emphysema (492.8) 2009 Problem resolved confirmed Gaurav-98 5911- Problem Generalized abdomina l pain (147797777) Generalized abdominal pain (789.07) 2014 Problem resolved confirmed Gaurav-98 5911- Problem Lab: Used to mat ch unlinked laboratory orders (V92) 2013 Problem resolved confirmed Gaurav-98 5911- Problem Left upper quadrant pain (466771495) LUQ abdominal pain (789.02) 2016 Problem resolved confirmed Gaurav-98 5911- Problem Hand pain (64951205) Hand pain (729.5) 2002 Problem resolved confirmed Gaurav-98 5911- Problem Herpes zoster (3988640) Herpes zoster (053.9) 2010 Problem resolved confirmed Gaurav-98 5911- Problem Lung mass (613826638) Lung mass (786.6) 0 2009 Problem resolved confirmed Gaurav-98 5911- Problem Muscle pain (81889621) Myalgias, unspecified (729.1) 2009 Problem resolved confirmed Gaurav-98 5911- Problem Coronary artery single vessel disease (414.01) 2007 Problem resolved confirmed Gaurav-98 5911- Problem Foot pain (38653019) Foot pain (729.5) 2012 Problem resolved confirmed Gaurav-98 5911- Problem Hyperkalemia (26261490) Hyperkalemia (276.7) 2014 Problem resolved confirmed Gaurav-98 5911- Problem Hypotension (85014221) Hypotension (458.8) 2003 Problem resolved confirmed Gaurav-98 5911- Problem Insomnia (210555853) Insomnia (307.41) 2012 Problem resolved confirmed Gaurav-98 5911- Problem Pain in limb (88333834) Leg pain (729.5) 2009 Problem resolved confirmed Gaurav-98 5911- Problem Peripheral neuropath y (289435113) Peripheral neuropathy (356.9) 2011 Problem resolved confirmed Gaurav-98 5911- Problem Precordial pain (43091946) Precordial chest pain (786.51) 2002 Problem resolved confirmed Gaurav-98 5911- Problem Rib pain (079239531) Rib pain (786.50) 2010 Problem resolved confirmed Gaurav-98 5911- Problem Screening for malignant neoplasm of colon (482084082) Screening for colorectal cancer (V76.49) 2011 Problem resolved confirmed Garuav-98 5911- Problem Acute maxillary sinusitis (25335744) Acute sinusitis, maxillary (461.0) 2010 Problem resolved confirmed Gaurav-98 5911- Problem General examination of patient (565787308) Annual exam (V70.0) 2009 Problem resolved confirmed Gaurav-98 5911- Problem Disorder of cervical spine (967001224) Cervical root impingement (723.8) 2003 Problem resolved confirmed Gaurav-98 5911- Problem 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 Problem resolved confirmed Gaurav-98 5911- Problem Osteonecrosis (813723063) Osteonecrosis (733.4) 2008 Problem resolved confirmed Gaurav-98 5911- Problem Needs influenza immunization (588366749) Vaccination against other viral diseases, Influenza (V04.81) 2010 Problem resolved confirmed Gaurav-98 5911- Problem Atherosclerotic heart disease (414.01) 2003 Problem resolved confirmed Gaurav-98 5911- Problem Benign prostatic hypertrophy (600297546) BPH (600.00) 2009 Problem resolved confirmed Gaurav-98 5911- Problem Coronary artery disease (97214901) Coronary artery disease (414.01) 2015 Problem resolved confirmed Gaurav-98 5911- Problem Syncope and collapse (206307545) Near-syncope (780.2) 2007 Problem resolved confirmed Gaurav-98 5911- Problem Disturbance in speec h (34531910) Other speech disturbance (784.59) 2012 Problem resolved confirmed Gaurav-98 5911- Problem Pleural effusion (84393488) Pleural effusion (511.9) 2009 Problem resolved confirmed Gaurav-98 5911- Problem PVD with claudication (440.21) 2011 Problem resolved confirmed Gaurav-98 5911- Problem White blood cell disorder (93533062) Abnormal WBC morphology (288.9) 2018 Problem resolved confirmed Gaurav-98 5911- Problem Chronic obstructive lung disease co-occurrent with acute bronchitis (204131934366725) Acute bronchitis with chronic obstructive pulmonary disease (COPD) (491.21) 2003 Problem resolved confirmed Gaurav-98 5911- Problem Constipation (48750439) Constipation (564.01) 2011 Problem resolved confirmed Gaurav-98 5911- Problem Depression (267958781) Depression (296.20) 2003 Problem resolved confirmed Gaurav-98 5911- Problem Knee pain (7460243937) Knee pain (719.46) 2011 Problem resolved confirmed Gaurav-98 5911- Problem Cellulitis and abscess of upper arm (946336948) Cellulitis of the arm (682.3) 2011 Problem resolved confirmed Gaurav-98 5911- Problem Glossodynia (80761328) Tongue pain (529.6) 2009 Problem resolved confirmed Gaurav-98 5911- Problem Pneumococcal pneumonia (455212049) Acute lobar pneumonia (481) 2012 Problem resolved confirmed Gaurav-98 5911- Problem Chronic insomnia (561725068) Chronic insomnia (307.42) 2012 Problem resolved confirmed Gaurav-98 5911- Problem Intermittent claudication (85988617) Claudication due to peripheral vascular disease (440.21) 2002 Problem resolved confirmed Gaurav-98 5911- Problem COPD - Chronic obstructive pulmonary disease (96026351) COPD (496) 2003 Problem resolved confirmed Gaurav-98 5911- Problem Transient ischemic attack (disorder) (306877166) TIA (435.9) 2002 Problem resolved confirmed Gaurav-98 5911- Problem Cramp in lower limb (226857796) Leg cramps (729.82) 2008 Problem resolved confirmed Gaurav-98 5911- Problem Low back pain (464466734) Lower back pain (724.2) 2009 Problem resolved confirmed Gaurav-98 5911- Problem Mild major depression, single episode (17444022) Major depression, single episode, mild (296.21) 2003 Problem resolved confirmed Gaurav-98 5911- Problem Moderate depression (008476128) Moderate depression (296.22) 2012 Problem resolved confirmed Gaurav-98 5911- Problem Osteoporosis (76468484) 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 Problem resolved confirmed Gaurav-98 5911- Problem Gastroesophageal reflux disease (649060723) GERD (530.81) 2003 Problem resolved confirmed Gaurav-98 5911- Problem Pedal edema (487802271) Pedal edema (782.3) 2012 Problem resolved confirmed Gaurav-98 5911- Problem Pressure ulcer s tage II (707.22) 2013 Problem resolved confirmed Gauarv-98 5911- Problem Primary hypercholesterolemia (314763896) Primary hypercholesterolemia (272.0) 2008 Problem resolved confirmed Gaurav-98 5911- Problem Syncope (264577425) Syncope (780.2) 08/19 Problem resolved confirmed Gaurav-98 5911- Problem Thrush (62778751) Thrush (112.0) 2010 Problem resolved confirmed Gaurav-98 5911- Plan Of Treatment No Information Insurance Providers Payer Name Payer Address Payer Phone Subscriber Number Group Number Insured Name Patient Relationship to Insured Coverage Start Date Coverage End Date [employer] Medicare Replacement HMO (Self Pay) [address] [place] [id number] Arnold Aragon Self - patient is the insured Medical (General) History Surgical History Surgery Date(Month/Year) Coronary Artery Stent Placement splenectomy Right total hip replacement Hernia repair right rotator cuff repair Hospitalization History Reason Date(Month/Year) Myocardial infarction Sepsis 2018
[2025-03-28 15:19] VITALS: BP 86/51; PULSE 66; RESP 16; TEMP 36.4; O2SAT 94
--- OUTSIDE RECORDS SUMMARY | 2025-03-28 15:19 | XMS_ITS | Encounter Summary ---
Author Organization [facility] Address [address] [place] [address] Care Team Providers Care Refractory Worker Name Role Phone Maynor Kowalski MD, Erlin Kim Primary Care Provider Encounter Details Date Type Department Care Team (Latest Contact Info) Description 10/20/2001 Outpatient Historical [facility] Erlin Mcguire Jr., MD [address] [place] [address] Routine medical exam (Primary Dx); Hypertrophy of prostate Social History Tobacco Use Types Packs/Day Years Used Date Smoking Tobacco: Never Assessed Sex and Gender Information Value Date Recorded Sex Assigned at Not on file 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
--- OUTSIDE RECORDS SUMMARY | 2025-03-28 15:19 | XMS_ITS | Encounter Summary ---
Author Organization [facility] Address [address] [place] [address] Care Team Providers Care Road Freight Firer Name Role Phone Maynor Kowalski MD, Erlin Kim Primary Care Provider Encounter Details Date Type Department Care Team (Latest Contact Info) Description 11/17/2001 Outpatient Historical [facility] Erlin Mcguire Jr., MD [address] [place] [address] OSTEOARTHROS NOS-UNSPEC (Primary Dx); NEUROPATHY IN OTHER DIS Social History Tobacco Use Types Packs/Day Years Used Date Smoking Tobacco: Never Assessed Sex and Gender Information Value Date Recorded Sex Assigned at Not on file 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
--- OUTSIDE RECORDS SUMMARY | 2025-03-28 15:19 | XMS_ITS | Encounter Summary ---
Author Organization [facility] Address [address] [place] [address] Care Team Providers Care Mma Fighter Name Role Phone Maynor Kowalski MD, Erlin Kim Primary Care Provider Encounter Details Date Type Department Care Team (Latest Contact Info) Description 09/16/2001 Outpatient Historical [facility] Preet Leigh MD [address] [facility] [address] [place] [address] DYSPHAGIA (Primary Dx); Esophageal stricture Social History Tobacco Use Types Packs/Day Years Used Date Smoking Tobacco: Never Assessed Sex and Gender Information Value Date Recorded Sex Assigned at Not on file 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
--- OUTSIDE RECORDS SUMMARY | 2025-03-28 15:19 | XMS_ITS | Encounter Summary ---
Author Organization [facility] Address [address] [place] [address] Care Team Providers Care Yard Specialist Name Role Phone Maynor Kowalski MD, Erlin Kim Primary Care Provider Encounter Details Date Type Department Care Team (Latest Contact Info) Description 01/10/2002 Outpatient Historical [facility] Erlin Mcguire Jr., MD [address] [place] [address] ATHEROSCLEROSIS NOS (Primary Dx); VENOUS THROMBOSIS NOS (CMS/HCC); OSTEOARTHROS NOS-UNSPEC; TOBACCO USE DISORDER Social History Tobacco Use Types Packs/Day Years Used Date Smoking Tobacco: Never Assessed Sex and Gender Information Value Date Recorded Sex Assigned at Not on file 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 Gender Identity Not on file Sexual Orientation Not on file documented as of this encounter Plan of Treatment Not on file documented as of this encounter Visit Diagnoses Diagnosis Generalized and unspecified atherosclerosis- Primary Embolism and thrombosis of unspecified site (CMS/HCC) Embolism and thrombosis of unspecified site Osteoarthrosis, unspecified whether generalized or localized, unspecified site Tobacco use disorder documented in this encounter Care Teams Yard Specialist Relationship Specialty Start Date End Date Erlin Mcguire Jr., MD [address] [place] [address] PCP - General 11/03/08 documented as of this encounter
--- OUTSIDE RECORDS SUMMARY | 2025-03-28 15:19 | XMS_ITS | Encounter Summary ---
Author Organization [facility] Address [address] Attn: [place] [address] Care Team Providers Care Director Cloud Transformation Name Role Phone Maynor Kowalski MD, Erlin Kim Primary Care Provider Encounter Details Date Type Department Care Team (Late st Contact Info) Description 10/20/2001 Outpatient Historical Erlin Mcguire Jr., MD [address] [place] [address] Social History Tobacco Use Types Packs/Day Years Used Date Smoking Tobacco: Never Assessed Sex and Gender Information Value Date Recorded Sex Assigned at Not on file 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
--- OUTSIDE RECORDS SUMMARY | 2025-03-28 15:19 | XMS_ITS | Encounter Summary ---
Author Organization [facility] Address [address] [place] [address] Care Team Providers Care Cushion Stuffer Name Role Phone Maynor Kowalski MD, Erlin Kim Primary Care Provider Encounter Details Date Type Department Care Team (Latest Contact Info) Description 11/25/2001 Outpatient Historical [facility] Erlin Mcguire Jr., MD [address] [place] [address] TESTICULAR HYPOFUNC NEC (Primary Dx); OSTEOARTHROS NOS-UNSPEC; ATHEROSCLEROSIS NOS Social History Tobacco Use Types Packs/Day Years Used Date Smoking Tobacco: Never Assessed Sex and Gender Information Value Date Recorded Sex Assigned at Not on file 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
--- OUTSIDE RECORDS SUMMARY | 2025-03-28 15:19 | XMS_ITS | Encounter Summary ---
Author Organization [facility] Address [address] [place] [address] Care Team Providers Care Chlorine Plant Operator Name Role Phone Maynor Kowalski MD, Erlin Kim Primary Care Provider Encounter Details Date Type Department Care Team (Latest Contact Info) Description 10/04/2001 Outpatient Historical [facility] Erlin Mcguire Jr., MD [address] [place] [address] ATHEROSCLEROSIS NOS (Primary Dx); Inhibited sex excitement Social History Tobacco Use Types Packs/Day Years Used Date Smoking Tobacco: Never Assessed Sex and Gender Information Value Date Recorded Sex Assigned at Not on file 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
--- NOTE | 2025-03-28 15:28 | USR_ITS ---
PROCEDURE INFORMATION: Exam: US Duplex Left Lower Extremity Arteries Or Arterial Bypass Grafts Exam date and time: 03/28/2025 3:53 PM Age: 84 years old Clinical indication: Pain; Leg, lower; Left; Additional info: Leg pain TECHNIQUE: Imaging protocol: Left Real-time duplex scan of the arteries or arterial bypass grafts of the left lower extremity with 2-D caldera scale, color Doppler flow and spectral waveform analysis. Images documented and saved. COMPARISON: US CV venous duplex [facility] [id number] 03/28/2025 3:46 PM FINDINGS: Left common femoral artery: No occlusion or significant stenosis. Normal waveform. Peak systolic velocity 71 cm/sec. Left superficial femoral artery: No occlusion or significant stenosis. Normal waveform. Peak systolic velocity 91 cm/sec. Left popliteal artery: No occlusion or significant stenosis. Normal waveform. Peak systolic velocity 45 cm/sec. Left calf/foot arteries: No occlusion or significant stenosis in the visualized arteries. Biphasic waveforms. Dorsalis pedis artery is patent. MANUEL 0.43. Other arteries: Scattered vascular calcifications throughout the lower extremity arteries. US/CV arterial duplex [facility] [id number] IMPRESSION: 1. No occlusion. 2. MANUEL 0.43 corresponding to borderline severe peripheral arterial disease. 3. Atherosclerotic calcifications throughout the lower extremity arteries.
--- NOTE | 2025-03-28 15:32 | XRR_ITS ---
PROCEDURE INFORMATION: Exam: XR Left Foot Exam date and time: 03/28/2025 3:53 PM Age: 84 years old Clinical indication: Pain; Foot; Left; Additional info: Foot pain TECHNIQUE: Imaging protocol: Radiologic exam of the left foot. Views: 3 or more views. COMPARISON: [place] [id number] 03/28/2025 3:46 PM FINDINGS: Bones/joints: No acute fracture or dislocation. Hallux valgus deformity with an osseous bunion. Mild degenerative changes of multiple interphalangeal joints. Soft tissues: Normal. Vasculature: Scattered vascular calcifications. XR/XR foot LT min 3V* [id number] IMPRESSION: 1. No acute osseous findings. 2. Hallux valgus with an osseous bunion.
--- NOTE | 2025-03-28 15:32 | W.ED.EXTPRO ---
HPI - Extremity Problem General: Chief complaint: Extremity Injury, Lower Stated complaint: dr novoa chintan, L leg pain, possible clot Time Seen by Provider: 03/28/25 15:28 Source: patient Mode of arrival: ambulatory Limitations: no limitations History of Present Illness: 84-year-old male sent here from orthopedist office to rule out a DVT states has been having left leg pains going on for little over a week. He has some bruising to his left foot he does not member any injuries to the foot. States the pain mainly in his left calf. Started no pulses detected in triage was able to palpate his DP and PT pulse here. He rates pain a 4 out of 10 denies any worse improving factors. Associated symptoms: Deny chest pain, fever(s) or rash Related Data Home Medications ?Medication ?Instructions ?Recorded ?Confirmed alendronate 70 mg tablet 70 mg PO .WEEKLY 06/21/24 03/28/25 fluticasone propionate 50 2 spray intranasal DAILY 03/28/25 03/28/25 mcg/actuation nasal spray,suspension tamsulosin 0.4 mg capsule 0.8 mg PO QAM 03/28/25 03/28/25 Previous Rx's ?Medication ?Instructions ?Recorded aspirin 81 mg tablet,delayed 81 mg PO DAILY #60 tabs 06/22/22 release albuterol sulfate 2.5 mg/3 mL 2.5 mg (3 mL) inhalation QID PRN 02/06/25 (0.083 %) solution for nebulization Shortness Of Breath #90 mL atorvastatin 40 mg tablet 40 mg PO DAILY #90 tabs 02/06/25 clopidogrel 75 mg tablet 75 mg PO DAILY #90 tabs 02/06/25 ipratropium bromide 0.02 % 2.5 ml inhalation Q6H PRN 02/06/25 solution for inhalation shortness of breath or wheezing #150 mL metoprolol succinate 25 mg 12.5 mg (1/2 x 25 mg) PO DAILY #90 02/06/25 tablet,extended release 24 hr tabs (Toprol XL) prednisone 5 mg tablet 5 mg PO DAILY #90 tabs 02/07/25 fluticasone furoate 100 1 inh inhalation DAILY #60 ea 02/09/25 mcg-vilanterol 25 mcg/dose inhalation powder (Breo Ellipta) umeclidinium 62.5 mcg/actuation 1 inh inhalation DAILY #30 ea 02/09/25 blister powder for inhalation (Incruse Ellipta) nitroglycerin 0.4 mg sublingual 0.4 mg sublingual Q5M PRN Chest 02/28/25 tablet Pain #10 tabs Allergies Allergy/AdvReac Type Severity Reaction Status Date / Time Penicillins Allergy Unknown Verified 03/28/25 14:30 tramadol AdvReac Intermediate N/V feels Verified 03/28/25 14:30 bad Review of Systems Const: Denies: fever(s), chills, body aches or change in appetite ENMT: Denies: throat pain or dental pain Card: Denies: chest pain Resp: Denies: dyspnea GI: Denies: abdominal pain, nausea, vomiting or diarrhea Musc: Reports: extremity pain; Denies: neck pain or back pain Skin/Breast: Denies: rash Neuro: Denies: headache(s) PFSH ED PFSH: Medical History Tobacco use disorder Schatzki's ring Upper GI bleed Osteoarthritis of right knee BPH (benign prostatic hyperplasia) Esophageal dilatation Atherosclerosis of coronary artery History of coronary artery disease Unstable angina High risk medication use Degenerative joint disease (DJD) of lumbar spine History of esophageal dilatation Degenerative lumbar spinal stenosis Osteoporosis COPD (chronic obstructive pulmonary disease) Immunosuppression Byron's granulomatosis with vasculitis Surgical History Previous back surgery back surg approx 06/07/21 Status post lumbar laminectomy Hx of heart artery stent 5 stents History of inguinal hernia repair, bilateral History of arthroscopy of right shoulder History of splenectomy History of right hip replacement Family History Mother , AT AGE 88 Renal failure Congestive heart failure (CHF) Father , AT AGE 65 Cancer LUNG Other CAD (coronary artery disease) Chronic kidney disease (CKD) Hypertension Lung disease Denies family history of Rheumatoid arthritis Diabetes Clotting disorder Dementia Hyperlipidemia Psychiatric illness Systemic lupus erythematosus (SLE) in adult Anesthesia complication Bleeding disorder Stroke Social History Smoking and tobacco/nicotine status: current every day tobacco/nicotine user cigarettes [ Other cigarette details: 1PPD, 130PY 2PPD x 60 +yrs] Alcohol intake: never Substance/Drug Use: never Lives independently: Yes Marital status: Number of children: 4 Current occupational status: retired Physical Exam Const: COMMON NORMALS: patient oriented x3 HENMT: COMMON NORMALS: normocephalic and atraumatic HEAD & SCALP: normocephalic and atraumatic Eye: COMMON NORMALS: conjunctivae normal CONJUNCTIVA: Yes conjunctivae normal Neck/C-Spine: COMMON NORMALS: full ROM and supple Chest: COMMONS NORMALS: normal inspection of the chest Resp: COMMON NORMALS: normal respiratory effort Cardio: COMMON NORMALS: regular rate, regular rhythm and No murmurs present (Cardio) RATE: regular rate RHYTHM: regular rhythm Extremity: COMMON NORMALS: full ROM NARRATIVE EXTREMITY EXAM: Bruising noted to left foot some pain in left calf distal pulses sensation intact Neuro: COMMON NORMALS: patient oriented x3, moves all extremities and no focal motor deficits Psych: COMMON NORMALS: mental status grossly normal, Normal thought process present and cooperative THOUGHT PROCESS: Normal thought process present Skin: COMMON NORMALS: no rashes or lesions noted and no wounds GENERAL SKIN EXAM: no rashes or lesions noted Course Vital Signs: Vital signs: Vital Signs Temperature 97.6 F 03/28/25 15:19 Pulse Rate 60 03/28/25 17:00 Respiratory Rate 16 03/28/25 15:19 Blood Pressure 130/67 03/28/25 17:00 Pulse Oximetry 92 03/28/25 17:00 Oxygen Delivery Me thod Room Air 03/28/25 17:00 MDM - Extremity (Nontraumatic) Medical Decision Making Patient presents here with left leg pain he is sent here rule out DVT he does have some peripheral artery disease no signs of occlusion his pain is improved here blood work is normal he is stable for discharge his follow-up with PCP and return if worsening he understands agrees to plan. Medical Records I reviewed the patient's medical records. Lab Data I reviewed the patient's lab results. 03/28/25 16:09 03/28/25 16:09 Radiology Impressions Venous Duplex 03/28/25 15:15 IMPRESSION: No evidence of deep vein thrombosis. Duplex Scan Lower Extremity Artery 03/28/25 15:28 IMPRESSION: 1. No occlusion. 2. MANUEL 0.43 corresponding to borderline severe peripheral arterial disease. 3. Atherosclerotic calcifications throughout the lower extremity arteries. Foot X-Ray 03/28/25 15:32 IMPRESSION: 1. No acute osseous findings. 2. Hallux valgus with an osseous bunion. Laboratory Results WBC 8.28 10^3/uL (3.29-11.43) 03/28/25 16:09 RBC 3.34 10^6/uL (3.85-5.65) L 03/28/25 16:09 Hgb 9.80 g/dL (11.27-16.99) L 03/28/25 16:09 Hct 32.2 % (37-53) L 03/28/25 16:09 MCV 96.4 fl (82-101) 03/28/25 16:09 MCH 29.3 pg (27-33) 03/28/25 16:09 MCHC 30.4 g/dL (30-55) 03/28/25 16:09 RDW 15.6 % (12.1-15.1) H 03/28/25 16:09 Plt Count 267 10^3/cmm (157-399) 03/28/25 16:09 MPV 11.5 fL (7.4-10.4) H 03/28/25 16:09 Neut % (Auto) 56.5 % 03/28/25 16:09 Lymph % (Auto) 15.2 % 03/28/25 16:09 [facility] % (Auto) 19.7 % 03/28/25 16:09 Eos % (Auto) 7.0 % 03/28/25 16:09 Baso % (Auto) 1.2 % 03/28/25 16:09 Neut # (Auto) 4.68 10^3/uL (1.8-7.7) 03/28/25 16:09 Lymph # (Auto) 1.3 10^3/uL (0.8-4.8) 03/28/25 16:09 [facility] # (Auto) 1.6 10^3/uL (0.2-0.9) H 03/28/25 16:09 Eos # (Auto) 0.6 10^3/uL (0.0-0.8) 03/28/25 16:09 Baso # (Auto) 0.1 10^3/uL (0.0-0.1) 03/28/25 16:09 Nucleated RBC % (auto) 0 % 03/28/25 16:09 Nucleated RBCs # 0.0 /100WBC 03/28/25 16:09 Sodium 141 mmol/L (136-145) 03/28/25 16:09 Potassium 4.4 mmol/L (3.5-5.1) 03/28/25 16:09 Chloride 104 mmol/L (98-107) 03/28/25 16:09 Carbon Dioxide 26 mmol/L (22-29) 03/28/25 16:09 Anion Gap 15.4 (5-19) 03/28/25 16:09 BUN 14 mg/dL (8-23) 03/28/25 16:09 Creatinine 0.8 mg/dL (0.7-1.2) 03/28/25 16:09 GFR Calculation Not Reportable 03/28/25 16:09 Glucose 80 mg/dL (65-115) 03/28/25 16:09 Calculated Osmolality 291 mOsm/kg (285-295) 03/28/25 16:09 Calcium 8.4 mg/dL (8.5-10.5) L 03/28/25 16:09 Total Bilirubin 0.3 mg/dL (0.15-1.2) 03/28/25 16:09 AST 16 U/L (0-40) 03/28/25 16:09 ALT 9 U/L (0-41) 03/28/25 16:09 Alkaline Phosphatase 69 U/L (40-130) 03/28/25 16:09 Total Protein 5.2 g/dL (6.6-8.7) L 03/28/25 16:09 Albumin 3.6 g/dL (3.5-5.2) 03/28/25 16:09 Globulin 1.6 g/dL (1.3-4.6) 03/28/25 16:09 All radiology interpretation(s) finalized by discharge Discharge Plan Discharge Patient Disposition: Home Clinical Impression: Peripheral arterial disease Condition: Stable Prescriptions: No Action prednisone 5 mg tablet 5 mg PO DAILY Qty: 90 1RF albuterol sulfate 2.5 mg /3 mL (0.083 %) solution for nebulization 2.5 mg INHALATION QID PRN (Reason: Shortness Of Breath) Qty: 90 2RF atorvastatin 40 mg tablet 40 mg PO DAILY Qty: 90 1RF ipratropium bromide 0.02 % solution 2.5 ml inhalation Q6H PRN (Reason: shortness of breath or wheezing) Qty: 150 2RF metoprolol succinate [Toprol XL] 25 mg tablet extended release 24 hr 12.5 mg PO DAILY Qty: 90 1RF clopidogrel 75 mg tablet 75 mg PO DAILY Qty: 90 1RF fluticasone furoate-vilanterol [Breo Ellipta] 100-25 mcg/dose blister with device 1 inh inhalation DAILY Qty: 60 2RF Incruse Ellipta 62.5 mcg/actuation blister with device 1 inh inhalation DAILY Qty: 30 4RF nitroglycerin 0.4 mg tablet, sublingual 0.4 mg SUBLINGUAL Q5M PRN (Reason: Chest Pain) Qty: 10 0RF Rx Instructions: do not exceed 3 doses per episode aspirin 81 mg Tablet,Delayed Release (Dr/Ec) 81 mg PO DAILY Qty: 60 2RF alendronate 70 mg tablet 70 mg PO .WEEKLY Rx Instructions: TAKE 1 TABLET BY MOUTH ONCE WEEKLY ON SUNDAYS tamsulosin 0.4 mg capsule 0.8 mg PO QAM fluticasone propionate 50 mcg/actuation spray,suspension 2 spray intranasal DAILY Discharge Orders: Discharge ED (Routine); Ordered 03/28/25 Ordered By: Juan Pablo Referrals: Dwayne Rocha MD [Primary Care Provider, [facility]] - 4-7 days Discharge Diet: Advance as tolerated Discharge Activity: Resume usual activity Patient Instructions: Peripheral Artery Disease (ED) Print Language: Welsh Coding Level of Care Code ED Car Blocker for [place]
[2025-03-28 15:37] VITALS: BP 103/64; PULSE 64; O2SAT 93
[2025-03-28 16:04] VITALS: BP 91/55; PULSE 59; O2SAT 93
[2025-03-28 16:30] VITALS: BP 133/67; PULSE 60; O2SAT 93
[2025-03-28 16:39] LABS: Hematocrit 32.2 % (37-53); Hemoglobin 9.80 g/dL (11.27-16.99); Mean Corpuscular HGB Conc 30.4 g/dL (30-55); Mean Corpuscular Hemoglobin 29.3 pg (27-33); Mean Corpuscular Volume 96.4 fl (82-101); Nucleated Red Blood Cells % 0 %; Platelet Count 267 10^3/cmm (157-399); Red Blood Count 3.34 10^6/uL (3.85-5.65); White Blood Count 8.28 10^3/uL (3.29-11.43)
[2025-03-28 17:00] VITALS: BP 130/67; PULSE 60; O2SAT 92
[2025-03-28 17:22] LABS: Alanine Aminotransferase 9 U/L (0-41); Albumin Level 3.6 g/dL (3.5-5.2); Alkaline Phosphatase 69 U/L (40-130); Anion Gap 15.4 (5-19); Aspartate Amino Transferase 16 U/L (0-40); Blood Urea Nitrogen 14 mg/dL (8-23); Calcium 8.4 mg/dL (8.5-10.5); Carbon Dioxide 26 mmol/L (22-29); Chloride 104 mmol/L (98-107); Creatinine Clr Calc Pharmacy 47.1309; Globulin 1.6 g/dL (1.3-4.6); Glucose 80 mg/dL (65-115); Osmolality Calculated 291 mOsm/kg (285-295); Potassium 4.4 mmol/L (3.5-5.1); Sodium 141 mmol/L (136-145); Total Protein 5.2 g/dL (6.6-8.7)
[2025-03-28 17:48] VITALS: BP 112/64; PULSE 59; O2SAT 92
--- NOTE | 2025-03-29 12:36 | PC.NURSE ---
Cardiology referral placed.
== END 2025-03-28 17:49 | disposition home or self-care (01) ==
PROVIDERS: Emergency Provider Emergency Medicine; PCP Family Medicine
DX: M79.662 Pain in left lower leg (principal); G56.03 Carpal tunnel syndrome, bilateral upper limbs; M79.605 Pain in left leg; I73.9 Peripheral vascular disease, unspecified; Z79.82 Long term (current) use of aspirin; Z79.02 Long term (current) use of antithrombotics/antiplatelets; F17.210 Nicotine dependence, cigarettes, uncomplicated; J44.9 Chronic obstructive pulmonary disease, unspecified
CPT/HCPCS: 36415; 73630; 80053; 85025; 93926; 93971; 99213; 99284

== ENCOUNTER → 2025-05-24 14:36 | Outpatient (BNVA) | payer MEDICARE, SELFPAY | PROVIDERS: PCP Family Medicine; Visit Provider Family Medicine | DX: J44.9 Chronic obstructive pulmonary disease, unspecified (principal); R06.02 Shortness of breath; M47.814 Spondylosis without myelopathy or radiculopathy, thoracic region | CPT/HCPCS: 71046 ==

== ENCOUNTER → 2025-05-30 10:21 | Outpatient (BNVA) | payer MEDICARE, SELFPAY | PROVIDERS: PCP Family Medicine; Referring Provider Emergency Medicine; Visit Provider Internal Medicine Cardiovascular Disease | DX: I25.10 Atherosclerotic heart disease of native coronary artery without angina pectoris (principal); I73.9 Peripheral vascular disease, unspecified; Z72.0 Tobacco use; Z95.5 Presence of coronary angioplasty implant and graft | CPT/HCPCS: 99214 ==

== ENCOUNTER 2025-06-07 14:19 | Outpatient (CLI) | payer MEDICARE, SELFPAY ==
--- NOTE | 2025-06-07 14:30 | CTR_ITS ---
PROCEDURE INFORMATION: Exam: CTA Left Lower Extremity With Contrast Exam date and time: 06/07/2025 2:56 PM Age: 84 years old Clinical indication: Swelling, leg or foot; Prior surgery; Surgery date: 6+ months; Surgery type: RT hip; Pad, left lower extremity discoloration with pain and swelling since March; Additional info: Peripheral artery disease TECHNIQUE: Imaging protocol: Computed tomographic angiography of the left lower extremity with contrast. 3D rendering (Not supervised by radiologist): MIP and/or 3D reconstructed images were created by the technologist. Radiation optimization: All CT scans at this facility use at least one of these dose optimization techniques: automated exposure control; mA and/or kV adjustment per patient size (includes targeted exams where dose is matched to clinical indication); or iterative reconstruction. Contrast material: OMNIPAQUE 350; Contrast volume: 100 ml; Contrast route: INTRAVENOUS (IV); COMPARISON: CR XR foot LT min 3V* [id number] 03/28/2025 3:53 PM RADIATION DOSE METRICS: Total DLP (mGy-cm): 1167.07 FINDINGS: Aorta: Abdominal aorta: Extensive atherosclerotic calcifications. Fusiform infrarenal abdominal aortic aneurysm measuring 4 x 3.5 cm in axial plane and 4 cm in the craniocaudal dimension. Left iliac arteries: Diffuse extensive calcified atherosclerotic plaquing of the left common iliac, left external iliac, in the left internal iliac arteries without significant stenosis or occlusion. Left femoral/popliteal arteries: Diffuse extensive calcified atherosclerotic plaquing of the left common femoral, the left superficial femoral, and the left popliteal arteries. No definite areas of significant stenosis although evaluation is somewhat limited by heavy calcifications. Left profunda femoris artery patent. Left infrapopliteal arteries: Patent trifurcation of the left popliteal artery. Opacification/flow visualized in the proximal most aspect of the left anterior tibial artery. The remainder of the left anterior tibial artery is likely occluded. Patent but diminutive left peroneal and left posterior tibial arteries visualized down to the level of the calcaneus. Right iliac arteries: Diffuse extensive calcified atherosclerotic plaquing of the right common iliac, right external iliac, in the right internal iliac arteries without significant stenosis or occlusion. Right femoral/popliteal arteries: Diffuse extensive calcified atherosclerotic plaquing of the right common femoral, the right superficial femoral, in the right popliteal arteries. No definite areas of significant stenosis although evaluation is somewhat limited by heavy calcifications. Right profunda femoris artery patent. Right infrapopliteal arteries: Patent trifurcation of the right popliteal artery. Diminutive anterior tibial and posterior tibial arteries visualized down to the level of the foot. Opacification of the proximal aspect of the right dorsalis pedis artery. The diminutive right peroneal artery is visualized down to the level of the ankle. Stomach and bowel: Visualized bowel demonstrate no evidence of obstruction. Colonic diverticulosis without CT evidence of acute diverticulitis. Urinary bladder: Urinary bladder grossly unremarkable. Reproductive: Prostate likely enlarged. Bones/joints: Osteopenia. No acute fracture. No dislocation. Evaluation degraded by artifact from right total hip arthroplasty. Soft tissues: No significant soft tissue abnormalities. CT/[place] [id number] IMPRESSION: 1. Opacification/flow visualized in the proximal most aspect of the left anterior tibial artery. The remainder of the left anterior tibial artery is likely occluded. 2. Patent but diminutive left peroneal and left posterior tibial arteries visualized down to the level of the calcaneus. 3. Patent but diminutive right infrapopliteal arteries visualized down to the level of the ankle and foot as described above. 4. Diffuse extensive atherosclerotic plaquing of the bilateral iliac and bilateral femoral arteries as described above without occlusion or significant stenosis although evaluation is somewhat limited by heavy calcifications. 5. Fusiform infrarenal abdominal aortic aneurysm measuring 4 x 3.5 cm in the axial plane. 6. Colonic diverticulosis.
[2025-06-07 14:52] LABS: Blood Urea Nitrogen 17 mg/dL (8-23)
[2025-06-07] MEDS: iohexol 350 mg/mL 500 mL Btl (per mL) IV (15:20)
== END 2025-06-07 14:20 | disposition home or self-care (01) ==
LOC: RAD 14:22
PROVIDERS: PCP Family Medicine; Visit Provider Internal Medicine Cardiovascular Disease
DX: I73.9 Peripheral vascular disease, unspecified (principal); Z01.89 Encounter for other specified special examinations; I71.43 Infrarenal abdominal aortic aneurysm, without rupture; K57.30 Diverticulosis of large intestine without perforation or abscess without bleeding; M85.89 Other specified disorders of bone density and structure, multiple sites
CPT/HCPCS: 73706; 82565; 84520

== ENCOUNTER → 2025-06-22 13:35 | Outpatient (BNVA) | payer MEDICARE, SELFPAY | PROVIDERS: PCP Family Medicine; Visit Provider Internal Medicine | DX: J44.9 Chronic obstructive pulmonary disease, unspecified (principal); R91.8 Other nonspecific abnormal finding of lung field; M31.30 Wegener's granulomatosis without renal involvement; K22.2 Esophageal obstruction; Z71.6 Tobacco abuse counseling; F17.210 Nicotine dependence, cigarettes, uncomplicated; Z99.81 Dependence on supplemental oxygen; Z91.141 Patient's other noncompliance with medication regimen due to financial hardship; T78.40XA Allergy, unspecified, initial encounter; X58.XXXA Exposure to other specified factors, initial encounter | CPT/HCPCS: 99204; 99406; Q3014 ==

== ENCOUNTER 2025-06-22 14:39 | Outpatient (CLI) | payer MEDICARE, SELFPAY ==
[2025-06-22 15:21] LABS: ABG PCO2 44.6 mmHg (35-45); ABG PH Result 7.41 (7.35-7.45); Alveolar-Arterial Oxygen Gradi 11.1 mmHg (5-10); Arterial Blood Gas Hematocrit 26.0 % (42-52); Blood Gas LPM 3.0 %; Blood Gas Operator Identificat BROMA; Blood Gas Sample Site Brachial, right; Blood Gas Sample Type Arterial; Carboxyhemoglobin 2.7 %THgb (0.4-20.1); Glucose Level-ABG 125.0 mg/dL (70-115); HCO3 ABG 28.1 mmol/L (22-26); Ionized Calcium Level - ABG 1.1 mmol/L (1.1-1.4); Methemoglobin 1.4 % (0.4-1.5); Oxygen Saturation ABG 97.4; PO2 ABG 87.2 mmHg (80.0-100.0); PO2 FiO2 Ratio Arterial Blood 272; Potassium Level - ABG 4.1 mmol/L (3.5-5.0); Sodium Level - ABG 138.0 mmol/L (131-143)
== END 2025-06-22 14:40 | disposition home or self-care (01) ==
LOC: LAB 14:42
PROVIDERS: PCP Family Medicine; Visit Provider Internal Medicine
DX: J44.9 Chronic obstructive pulmonary disease, unspecified (principal); T78.40XA Allergy, unspecified, initial encounter; X58.XXXA Exposure to other specified factors, initial encounter
CPT/HCPCS: 36415; 36600; 80051; 82330; 82805; 85007; 85025; 86003

== ENCOUNTER 2025-07-11 08:58 | Outpatient (CLI) | payer MEDICARE, SELFPAY ==
[2025-07-11 09:27] LABS: Hematocrit 25.4 % (37-53); Hemoglobin 7.40 g/dL (11.27-16.99); Mean Corpuscular HGB Conc 29.1 g/dL (30-55); Mean Corpuscular Hemoglobin 23.8 pg (27-33); Mean Corpuscular Volume 81.7 fl (82-101); Nucleated Red Blood Cells % 0 %; Platelet Count 423 10^3/cmm (157-399); Red Blood Count 3.11 10^6/uL (3.85-5.65); White Blood Count 15.04 10^3/uL (3.29-11.43)
[2025-07-11 09:29] VITALS: BP 112/60; PULSE 69; RESP 18; TEMP 36.7; O2SAT 91; BMI 16.4
[2025-07-11 09:45] LABS: Anion Gap 14.0 (5-19); Blood Urea Nitrogen 12 mg/dL (8-23); Calcium 8.4 mg/dL (8.5-10.5); Carbon Dioxide 25 mmol/L (22-29); Chloride 106 mmol/L (98-107); Creatinine Clr Calc Pharmacy 47.1309; Glucose 79 mg/dL (65-115); Osmolality Calculated 291 mOsm/kg (285-295); Potassium 4.0 mmol/L (3.5-5.1); Sodium 141 mmol/L (136-145)
[2025-07-11 10:11] LABS: Slide Review Slide Review Perform
--- NOTE | 2025-07-11 10:34 | P.PN_ITS ---
Subjective 2 Medications: Medication Review Details: 84-year-old male past medical history si gnificant for COPD peripheral arterial disease anemia chronic hypertension hyperlipidemia tobacco use was referred to us for peripheral angiogram. According to the patient he had leg swelling and bluish discoloration few days ago he does not know what happened but then it got better itself. He denies any claudication denies wounds. He thinks that he is walking around fine he underwent CTA with runoff which showed calcification but no significant stenosis of iliac SFA or popliteal artery, it was noted that possible anterior tibial has stenosis however he has both anterior and posterior tibial pulses palpable. His left leg and foot is warm and moist. Given his history physical examination and presence of no symptoms at this point in my opinion there is no indication for peripheral angiogram/angioplasty however we will continue to monitor this patient in the clinic if you develop any lifestyle-limiting claudication we can always perform peripheral angiogram. Advise continue taking aspirin statin and adopt walking exercises. I have discussed with Dr. Rocha his primary care physician who also is in agreement. We would therefore cancel the procedure today he is advised to follow-up with his primary care physician and Dr. Stern as routine Vitals/I&O/Wt Last Vital Signs Temp 98.0 F 07/11/25 09:29 Pulse 69 07/11/25 09:29 Resp 18 07/11/25 09:29 BP 112/60 07/11/25 09:29 Pulse Ox 91 07/11/25 09:29 O2 Del Method Room Air 07/11/25 09:29 Weight last 48 hrs Weight 105 lb Data 07/11/25 09:15 07/11/25 09:15 A&P PDMP PDMP Reviewed: Not Reviewed Attestations 2 Medical Necessity Statement*: Patient can be discharged home Coding Level of Care Code Acute Code for Chg Fwd
--- NOTE | 2025-07-11 11:20 | SUR.PREOP ---
PROCEDURE CANCEL Dr Boogie in to speak with the patient. Procedure cancelled. Patient discharged in stable condition.
== END 2025-07-11 08:59 | disposition home or self-care (01) ==
LOC: CCL 09:00
PROVIDERS: PCP Family Medicine; Visit Provider Internal Medicine Cardiovascular Disease
DX: Z53.8 Procedure and treatment not carried out for other reasons (principal)
CPT/HCPCS: 80048; 85025; J1644; J2250; J3010; J7030; J9999; Q0163

== ENCOUNTER 2025-08-09 11:53 | Outpatient (CLI) | payer MEDICARE, SELFPAY ==
[2025-08-09 12:46] VITALS: PULSE 67; RESP 18; O2SAT 91
== END 2025-08-09 11:54 | disposition home or self-care (01) ==
PROVIDERS: PCP Family Medicine; Visit Provider Internal Medicine
DX: J44.9 Chronic obstructive pulmonary disease, unspecified (principal)
CPT/HCPCS: 94060; 94726; 94729; J7613

== ENCOUNTER → 2025-08-22 13:50 | Outpatient (BNVA) | payer MEDICARE, SELFPAY | PROVIDERS: PCP Family Medicine; Visit Provider Internal Medicine | DX: J44.89 Other specified chronic obstructive pulmonary disease (principal); M31.30 Wegener's granulomatosis without renal involvement; R91.8 Other nonspecific abnormal finding of lung field; K22.2 Esophageal obstruction; Z91.141 Patient's other noncompliance with medication regimen due to financial hardship; F17.210 Nicotine dependence, cigarettes, uncomplicated; J44.9 Chronic obstructive pulmonary disease, unspecified | CPT/HCPCS: 99214; Q3014 ==